=== PATIENT | male | born 1950 | race Caucasian/White ===

== ENCOUNTER 2018-11-05 12:50 | Emergency (ER) | payer MEDICARE, OTHER, SELFPAY ==
[2018-11-05 12:55] VITALS: BP 166/87; PULSE 84; RESP 12; TEMP 36.7; O2SAT 95
--- NOTE | 2018-11-05 12:59 | W.ED.GENAD ---
Discharge Plan Disposition Patient Disposition: HOME Condition: Improving Discharge Details Chief Complaint: Orthopedic Clinical Impression: Bicipital tendinitis of left shoulder Primary Care Provider: Hannah Silvestre ED Provider: Steven Fonseca Home Meds and New Rx's Prescriptions: Continued ibuprofen 600 MG tablet 600 mg PO TID PRN PRNQty: 30 RF: 0 Discharge Instructions Instructions: Tendinitis (ED) Additional Instructions: Minimize overuse of L arm including shoveling. Apply ice to area discomfort is persistent. Followup with Physical Therapy as prescribed. Return for any acute concerns. Stand Alone Forms: Physical Therapy Referral Medical Decision Making 68yom presents from home with complaint of weeks of L shoulder pain. Began after shoveling and now with reproducible pain and pain with resisted external rotation and resisted abduction. Referred for x-ray no underlying fracture or evidence of calcific deposits. Would consider biceps or rotator cuff tendonitis. Cannot ruleout rotator cuff tendonitis. Will refer to PT. He will minimize movements (shoveling) that irritate the area. Return precautions discussed. HPI General Mode of arrival: ambulatory. Date/Time Provider Initiated Documentation: 11/05/18 12:52. Limitations to Documentation: no limitations. Information obtained by: patient. History of Present Illness 68 year old M presents to the emergency department with the chief complaint of R shulder pain x 2 months after shoveling, described as mild, Quality is described as aching, and is localized to the left and upper extremity. Patient reports no radiation. Patient started experiencing this day(s) No relieving factors improve symptom(s), Movement worsens symptoms . Patient notes no other symptoms.; denies chest pain, rash, shortness of breath and syncope. Related Data Home Medications Medication Instructions Recorded Confirmed ibuprofen 600 mg PO TID PRN PRN #30 tab 04/14/13 11/05/18 Previous Rx's Medication Instructions Recorded ibuprofen 600 mg PO TID PRN PRN #30 tab 04/14/13 Allergies Allergy/AdvReac Type Severity Reaction Status Date / Time No Known Allergies Allergy Unverified 11/05/18 12:59 General Stated Complaint: Orthopedic WALLY: 4 Review of Systems Review of Systems 4 systems reviewed and otherwise negative. [facility] Social History Smoking and Tabacco status: Former Tobacco Use Exam Narrative Exam Narrative: GEN: awake, alert, oriented 3. Pleasant, well groomed, interactive. HEAD: Normocephalic, atraumatic ENT: Mucous membranes moist, oropharynx unremarkable, External ear exam unremarkable EYES: PERRL, EOMI NECK: Full ROM, no NIVIA, no menigismus CHEST/RESP: Nontender, clear to auscultation bilateral, no wheeze/rhonchi/rales CARDIOVASCULAR: RRR, no murmur, rub janny. 2+ Rad pulse bilateral ABDOMEN: Soft, nontender, no mass. +Bowel sounds EXT: Full ROM, no edema, no rash. Tender with resisted external rotation and resisted abduction L Neuro: Grossly normal neurologic exam, conversant, interactive. Psych: Speech fluent, thoughts congruent, affect normal Course Vital Signs Temperature 36.7 C 11/05/18 12:55 Pulse 84 11/05/18 12:55 Respiratory Rate 12 11/05/18 12:55 Blood Pressure 166/87 H 11/05/18 12:55 Pulse Oximetry 95 11/05/18 12:55 Temperature 36.7 C 11/05/18 12:55 Temperature Source Temporal Artery Scan 11/05/18 12:55 Pulse 84 11/05/18 12:55 Respiratory Rate 12 11/05/18 12:55 Respiratory Effort Non-Labored 11/05/18 12:57 Blood Pressure 166/87 H 11/05/18 12:55 Blood Pressure Position Sitting 11/05/18 12:55 Pulse Oximetry 95 11/05/18 12:55 Oxygen Delivery Method Room Air 11/05/18 12:55 Oxygen Flow Rate 0 11/05/18 12:55 Pain Level 2 11/05/18 12:55
--- NOTE | 2018-11-05 13:22 | DI.RAD_ITS ---
SYMPTOMS/DIAGNOSIS: LEFT LATERAL PAIN LEFT SHOULDER: Five views. No acute fracture or dislocation is seen. There are mild degenerative changes seen at the acromioclavicular joint. No radiopaque foreign bodies are seen in the soft tissues. IMPRESSION: No acute abnormality.
[2018-11-05 14:09] VITALS: BP 166/87; PULSE 84; RESP 12; TEMP 36.7; O2SAT 95
== END 2018-11-05 13:57 | disposition home or self-care (01) ==
PROVIDERS: Emergency Provider Emergency Medicine; PCP Internal Medicine
DX: M75.22 Bicipital tendinitis, left shoulder (principal); X50.3XXA Overexertion from repetitive movements, initial encounter
CPT/HCPCS: 99283; 73030; 99282

== ENCOUNTER 2021-07-28 15:05 | Emergency (ER) | payer MEDICARE, OTHER, SELFPAY ==
[2021-07-28] VITALS (26 sets, daily range): BP systolic 112–152; BP diastolic 68–96; PULSE 104–118; RESP 19–45; TEMP 36.1–37.1; O2SAT 93–96
--- NOTE | 2021-07-28 15:30 | DI.RAD_ITS ---
Exam(s) XR PORTABLE CHEST AP EXAM: XR PORTABLE CHEST AP CLINICAL HISTORY: fever, cough. TECHNIQUE: 2D digital imaging was performed. COMPARISON: No exams were available for comparison FINDINGS: Cardiomegaly.. The mediastinum is not widened. There is infiltrate in the lower right lung field. Also in the left lung base contiguous with the di aphragm behind the heart shadow. There is relative sparing of the upper lung mendiola. There are no o bvious pleural effusions. No pneumothorax. Chest leads in place IMPRESSION: Cardiomegaly. Bilateral infiltrates. No obvious pleural effusions. DATA REPOSITORY: RADIATION DOSE DELIVERED: All CT scans at this facility use at least one of these dose optimization techniques: automated exposure control; mA and/or kV adjustment per patient size (includes targeted e xams where dose is matched to clinical indication); or iterative reconstruction.
--- NOTE | 2021-07-28 15:41 | ED.GENADUL_ITS ---
Discharge Plan Disposition Patient Disposition: [facility] Condition: Stable Discharge Details Clinical Impression: Hemorrhagic pericardial effusion, CHF (congestive heart failure), Ascites Primary Care Provider: Unknown,Unknown ED Provider: Mihir Lemons [place] Meds and New Rx's Prescriptions: No Action ibuprofen 600 MG tablet 600 mg PO TID PRN PRNQty: 30 RF: 0 Medical Decision Making <Steven Fonseca MD - Last Filed: 07/28/21 19:31> 71-year-old male presents from home. He has had 4 to 5 days of cough, body aches, subjective fever and chills, shortness of breath. Does note that his symptoms seem to be worse while lying flat. Has received his third dose of moderna COVID-19 vaccine approximately 1 week prior to development of symptoms. No known sick contacts. He arrives to the ER afebrile, interactive with elevated pulse rate, elevated respiratory rate at rest but oxygenating normally. Differential diagnosis is broad including breakthrough Covid infection, pneumonia, must consider CHF. Patient IV access established, screening labs including influenza, COVID-19, EKG and chest x-ray. Patient's white blood cell count is 11, hematocrit 48, platelets 261. Sodium 137, potassium 4.5, bicarb 17, BUN 26, creatinine 1.2. Total bili is 2.5, AST 601, ALT 680. Troponin negative, BNP 4172, D-dimer 3419. Influenza and Covid screening negative. Chest x-ray with bibasilar opacities. See formal report. Given evidence of CHF, liver congestion, elevated D-dimer, the patient was referred for CT imaging; this reveals moderate bilateral pleural effusions, moderate pericardial effusion with Hounsfield units of 60, concerning for heme pericardium. Appears to be some equalization of the right to left heart, see formal report. I did perform an informal bedside ultrasound which does not reveal evidence of tamponade on my images. Bedside pulsus paradoxus measurement with 12mmHg change with inspiration/expiration. Certainly his presentation is concerning for pericarditis with pericardial effusion, and evidence of congestive heart failure with liver congestion. Case discussed <Mihir Lemons MD - Last Filed: 07/28/21 21:48> Patient signed out to me pending discussion with [facility]. Patient seen and evaluated by Dr. Fonseca. Please see his initial note for presentation, evaluation, management. I spoke with cardiology at [facility] and discussed the case as well as the findings. Patient felt to be appropriate for medicine admission with cardiology consult. [facility] called back and confirmed that they will accept the patient tonight with Dr. Rai. Patient made aware of pending transfer and further discussion and questions answered to the best of my ability. Patient remained stable here in the department pending transfer by ambulance to [facility]. Lab Data Lab results reviewed: Yes I reviewed the patient's lab results. HPI <Steven Fonseca MD - Last Filed: 07/28/21 19:31> General Mode of arrival: ambulatory . Date/Time Provider Initiated Documentation: 07/28/21 15:06 . Limitations to Documentation: no limitations . Information obtained by: patient . History of Present Illness 71 year old M presents to the emergency department with the chief complaint of Cough, feels short of breath, increased work of breathing, burning lungs., described as moderate, Quality is described as constant, and is localized to the chest. Patient reports no radiation. Patient started experiencing this day(s) No relieving factors improve symptom(s), No exacerbating factors reported . Patient notes cough, fever/chills, loss of appetite, malaise, shortness of breath and weakness. Patient did receive the following treatments prior to arrival, none Related Data Home Medications Medication Instructions Recorded Confirmed ibuprofen 600 mg PO TID PRN PRN #30 tab 04/14/13 11/05/18 Previous Rx's Medication Instructions Recorded ibuprofen 600 mg PO TID PRN PRN #30 tab 04/14/13 Allergies Allergy/AdvReac Type Severity Reaction Status Date / Time No Known Allergies Allergy Unverified 07/28/21 15:25 General Stated Complaint: SOB WALLY: 3 Review of Systems <Steven Fonseca MD - Last Filed: 07/28/21 19:31> Narrative: No known sick contacts. Symptoms began approximately 1 week after third month during a COVID-19 immunization, no vomiting or abdominal pain. Patient states seems to be worse while lying flat and develops more air hunger. See HPI. 8 systems reviewed and otherwise negative PFSH <Steven Fonseca MD - Last Filed: 07/28/21 19:31> Active Problem List (Updated 07/28/21 @ 21:47 by Mihir Lemons MD) Hemorrhagic pericardial effusion (Acute) CHF (congestive heart failure) (Chronic) Ascites (Acute) Social History Smoking/Tobacco Use Status: Former Tobacco Use Smoking risk assessment performed?: Yes Drug use: Never Substance use type: does not use Do you feel safe in your relationship?: Yes Exam <Steven Fonseca MD - Last Filed: 07/28/21 19:31> Narrative Exam Narrative: GEN: awake, alert, oriented 3. Pleasant, well groomed, interactive. HEAD: Normocephalic, atraumatic ENT: Mucous membranes moist, oropharynx unremarkable, External ear exam unremarkable EYES: PERRL, EOMI NECK: Full ROM, no NIVIA, no menigismus CHEST/RESP: Nontender, clear to auscultation bilateral, no wheeze/rhonchi/rales CARDIOVASCULAR: Regular and tachycardic, no murmur, rub janny. 2+ Rad pulse bilateral ABDOMEN: Soft, nontender, no mass. +Bowel sounds EXT: Full ROM, no edema, no rash Neuro: Grossly normal neurologic exam, conversant, interactive. Psych: Speech fluent, thoughts congruent, affect normal Course <Steven Fonseca MD - Last Filed: 07/28/21 19:31> Vital Signs Vital signs: Vital Signs Temperature 36.1 C L 07/28/21 15:18 Pulse 110 H 07/28/21 15:18 Respiratory Rate 38 H 07/28/21 15:18 Blood Pressure 152/96 H 07/28/21 15:18 Pulse Oximetry 96 07/28/21 15:18 Temperature 36.1 C L 07/28/21 15:18 Temperature Source Skin 07/28/21 15:18 Pulse 110 H 07/28/21 15:18 Respiratory Rate 38 H 07/28/21 15:18 Respiratory Effort 07/28/21 15:18 Blood Pressure 152/96 H 07/28/21 15:18 Pulse Oximetry 96 07/28/21 15:18 Oxygen Delivery Method Room Air 07/28/21 15:18 Oxygen Flow Rate 0 07/28/21 15:18 Pain Level 4 07/28/21 15:18 Sign Out <Steven Fonseca MD - Last Filed: 07/28/21 19:31> Sign Out Data: Sign Out Comment: CHF with ascites, pericardial fluid. D/W Cardiology Last updated by Steven Fonseca MD at 07/28/21 20:16
[2021-07-28 15:52] LABS: Source Nasal/Nares
[2021-07-28 16:10] LABS: Abs Immature Grans 0.08 10^3/uL (0.0-0.06); Absolute Basophil Count 0.03 10^3/uL (0.0-0.2); Absolute Eosinophil Count 0.01 10^3/uL (0.0-0.7); Absolute Lymphocyte Count 1.57 10^3/uL (1.2-3.4); Absolute Monocyte Count 1.18 10^3/uL (0.1-0.8); Absolute Neutrophil Count 8.57 10^3/uL (1.2-6.7); Basophils % 0.3; Eosinophils % 0.1; HCT 48.9 % (40.0-50.0); Immature Grans % 0.7; Lymphocytes % 13.7; MCH 30.2 pg (27.0-33.0); MCHC 32.7 % (32.0-36.0); MCV 92.4 fL (80-95); MPV 10.1 fL (8.0-11.0); Monocytes % 10.3; Neutrophils % 74.9; Nucleated RBC 0 %; Platelet Count 261 10^3/uL (130-400); RBC 5.29 10^6/uL (4.36-5.78); RDW 13.4 % (11.8-14.1); RDW-SD 45.4 fL; WBC 11.44 10^3/uL (4.4-10.8)
[2021-07-28] MEDS: Normal Saline 1,000 ML 1000 ML IV (16:21)
--- NOTE | 2021-07-28 16:30 | DI.CT_ITS ---
Exam(s) CT CHEST PE ABD PELVIS W EXAM: CT CHEST PE ABD PELVIS W CLINICAL HISTORY: SOB,Elev DDimer, Elev LFTs. TECHNIQUE: Imaging Protocol: Axial CT angiography was performed with multi-slice acquisition and m ulti-planar and/or 3D reconstructions. CONTRAST MATERIAL: Intravenous: Omnipaque 350 Contrast volume:100 ml Oral: None COMPARISON: No exams were available for comparison FINDINGS: CHEST: PULMONARY ARTERIES: There are no intra-arterial filling defects to suggest the presence of acute pulm onary emboli. LUNGS: There are moderate-sized bilateral pleural effusions and relaxation atelectasis noted. MEDIASTINUM: There is no hilar nor mediastinal adenopathy. Visualized thyroid unremarkable. CARDIAC: There is a prominent pericardial effusion which is approximately 2 cm thick and exhibit dens ity measurements of approximately 62 Hounsfield units. This may indicate blood.Equalization of the v entricles. Possible developing tamponade. There is also reflux of contrast into the intrahepatic IV C. OSSEOUS: No significant osseous lesions.. ABDOMEN: There is moderate amount of ascites. LIVER: There is a cyst in the caudate lobe which measures 2.5 x 1.4 cm. Another cyst is seen in the left hepatic lobe measuring 1.7 x 1.3 cm. GALLBLADDER/BILIARY: No obvious gallbladder pathology. CBD is not dilated. PANCREAS: No evidence of pancreatic mass nor dilatation of the pancreatic duct. SPLEEN: Spleen is not enlarged. There are no intrasplenic lesions. Splenic and portal veins are richardson nt. ADRENALS: There are no significant adrenal masses. KIDNEYS:No cysts evident. No calculi nor hydronephrosis. No solid renal masses. ABDOMINAL AORTA: Abdominal aorta is not enlarged. LYMPH NODES: There is no retroperitoneal or para-aortic adenopathy. ABDOMINAL WALL/GI: There is a left inguinal hernia which contains bowel loops, mostly sigmoid. No ob vious bowel obstruction. PELVIS: LYMPH NODES: There is no intrapelvic nor inguinal adenopathy. GI: No evidence of appendicitis.Sigmoid diverticulosis. No obvious acute diverticulitis. URINARY BLADDER: Uniformly thickened wall. No diverticuli. REPRODUCTIVE: Prostate size upper normal. Seminal vesicles unremarkable. OSSEOUS: No significant osseous lesions. IMPRESSION: 1. No evidence of acute pulmonary emboli nor pulmonary infarction. 2. Moderate sized bilateral pleural effusions noted. Relaxation atelectasis in the lung bases. 3. Large pericardial effusion-probable hemopericardium. Findings suspicious for developing tamponade . 4. Moderate ascites. 5. Large left inguinal hernia which contains significant part of the sigmoid. No obvious bowel obstr uction at this level. 6. sigmoid diverticulosis. No obvious acute diverticulitis. RADIATION DOSE DELIVERED: 1,170.75mGy.cm Total DLP DATA REPOSITORY: All CT scans at this facility are submitted to the National Radiology Data Registry (NRDR) Dose Index Registry (DIR) with the [employer] (ACR). RADIATION OPTIMIZATION: All CT scans at this facility use at least one of these dose optimization te chniques: automated exposure control; mA and/or kV adjustment per patient size (includes targeted exa ms where dose is matched to clinical indication); or iterative reconstruction.
[2021-07-28 16:32] LABS: ALT 680 U/L (16-63); AST 601 U/L (15-37); Albumin 3.6 g/dL (3.4-5.0); Alkaline Phosphatase 129 U/L (46-116); Anion Gap 17.7 mmol/L (3-11); BUN 26 mg/dL (7-18); Bilirubin, Total 2.5 mg/dL (0.2-1.0); CO2 17.3 mmol/L (21.0-32.0); CREATININE 1.2 mg/dL (0.70-1.30); Calcium 8.9 mg/dL (8.5-10.1); Chloride 102 mmol/L (98-107); Estimated GFR 59.35 (mL/min/1.73m2); Glucose 109 mg/dL (74-106); Potassium 4.5 mmol/L (3.5-5.1); Sodium 137 mmol/L (136-145); Total Protein 6.9 g/dL (6.4-8.2)
[2021-07-28 16:34] LABS: COVID-19 PCR Negative (Negative)
[2021-07-28 16:41] LABS: D-Dimer 3419 ng/mlFEU (<500)
--- NOTE | 2021-07-28 17:00 | RT.EKG_ITS ---
APPROVED REPORT Exam: Resting ECG Reason for Exam: sob Patient Location: E HR:110 bpm ECG Measurements Heart Rate 110 AXIS IA 143 P 51 QRSd 82 QRS 78 QT 329 T 229 QTc 446 Conclusion Sinus tachycardia...rate> 99 Nonspecific T abnormalities, lateral leads...T <-0.10mV, I aVL V5 V6
--- NOTE | 2021-07-28 17:05 | DI.VRAD_ITS ---
PROCEDURE INFORMATION: Exam: XR Chest Exam date and time: 07/28/2021 3:40 PM Age: 71 years old Clinical indication: Other: Fever, cough TECHNIQUE: Imaging protocol: XR of the chest. Views: 1 view. COMPARISON: CR Shoulder L 11/05/2018 1:26 PM FINDINGS: Lungs: Bibasilar opacities are seen. Pleural spaces: Unremarkable. No pleural effusion. No pneumothorax. Heart/Mediastinum: Mild cardiac enlargement. Bones/joints: Unremarkable. IMPRESSION: Bibasilar opacities compatible with infiltrates are aspirations. Follow-up PA and lateral recommended to ensure resolution. Dictated and Authenticated by: Ajit Armstrong MD. Ordering:JUDE Harris MD
[2021-07-28 17:09] LABS: Procalcitonin < 0.1 ng/mL
[2021-07-28 17:24] LABS: NT-proBNP 4172 pg/mL (<300); Troponin I < 0.05 ng/mL (<0.06)
[2021-07-28] MEDS: Omnipaque 350 MG/ML 100 ML BTL IJ (18:08)
[2021-07-28] MEDS: Normal Saline Flush 10 ML SYR IVP (18:08)
--- NOTE | 2021-07-28 18:58 | DI.VRAD_ITS ---
PROCEDURE INFORMATION: Exam: CTA Chest With Contrast Exam date and time: 07/28/2021 4:44 PM Age: 71 years old Clinical indication: Other: SOB, elev ddimer, elev lfts TECHNIQUE: Imaging protocol: Computed tomographic angiography of the chest with contrast. 3D rendering (Not supervised by radiologist): MIP and/or 3D reconstructed images were created by the technologist. Contrast material: OMNIPAQUE 350; Contrast volume: 100 ml; Contrast route: INTRAVENOUS (IV); COMPARISON: XR PORTABLE CHEST AP 07/28/2021 4:38 PM FINDINGS: Pulmonary arteries: No evidence of pulmonary embolus to the proximal segmental level in most cases. Aorta: Mild dilatation of the ascending thoracic aorta to about 38 mm. Lungs: Dependent bilateral pulmonary opacities most likely represent relaxation atelectasis, but infection not entirely excluded. Pleural spaces: Moderate bilateral pleural effusions are layering. Heart: A moderate pericardial effusion is seen. Hounsfield units are around 60. This is concerning for hemopericardium. There appears to be some equalization of the right left heart which is worrisome for tamponade. Lymph nodes: Mildly prominent mediastinal lymph nodes. Bones/joints: Unremarkable. No acute fracture. Soft tissues: Unremarkable. IMPRESSION: 1. Findings concerning for moderate hemopericardium. Please correlate clinically for tamponade. 2. Moderate bilateral layering effusions with associated atelectasis. Findings concerning for heart failure. 3. No evidence of pulmonary embolus Case discussed with Dr. Fonseca over the phone at 2:56 p.m. [place] time PROCEDURE INFORMATION: Exam: CT Angiography Abdomen With Contrast Exam date and time: 07/28/2021 4:44 PM Age: 71 years old Clinical indication: Other: SOB, elev ddimer, elev lfts TECHNIQUE: Imaging protocol: Computed tomographic angiography images of the abdomen with intravenous contrast material. 3D rendering (Not supervised by radiologist): MIP and/or 3D reconstructed images were created by the technologist. Contrast material: OMNIPAQUE 350; Contrast volume: 100 ml; Contrast route: INTRAVENOUS (IV); COMPARISON: XR PORTABLE CHEST AP 07/28/2021 4:38 PM FINDINGS: Aorta: No aortic aneurysm. No aortic dissection. Celiac trunk and mesenteric arteries: No occlusion or significant stenosis. Renal arteries: No occlusion or significant stenosis. IVC: The IVC and hepatic veins are distended. Liver: Probable cyst in the hepatic subsegment 3. Subtle heterogeneity is of uncertain significance, but clinical correlation recommended for hepatic parenchymal disease. It could be due to vascular congestion. Gallbladder and bile ducts: Normal. No calcified stones. No ductal dilation. Pancreas: Normal. No ductal dilation. Spleen: Normal. No splenomegaly. Adrenals: Normal. No mass. Kidneys and ureters: Normal. No hydronephrosis. Stomach and bowel: Sigmoid diverticulosis noted. No large or small bowel dilatation. Lymph nodes: Unremarkable. No enlarged lymph nodes. Intraperitoneal space: Diffuse ascites seen. Mild stranding in the mesenteric and retroperitoneal fat diffusely. Bladder: Mild bladder wall thickening appears fairly diffuse, but correlation for cystitis is recommended. Bones/joints: Unremarkable. No acute fracture. No dislocation. Soft tissues: A moderate left inguinal hernia is partially imaged and contains loops of bowel. Other findings: Probable cyst in the caudate lobe. Prominent cisterna chyli. IMPRESSION: 1. Diffuse small volume ascites of uncertain cause 2. Several incidental findings as above. Dictated and Authenticated by: Ajit Armstrong MD. Ordering:JUDE Harris MD
[2021-07-28 19:42] LABS: Troponin I < 0.05 ng/mL (<0.06)
[2021-07-28 19:45] LABS: INR 1.5 (0.9-1.1); PTT Activated 20.2 sec (21.0-27.5); Prothrombin Time 14.5 sec (9.3-11.0)
== END 2021-07-28 22:43 | disposition short-term general hospital (02) ==
PROVIDERS: Emergency Medicine; Emergency Provider Emergency Medicine
DX: I30.9 Acute pericarditis, unspecified (principal); I50.9 Heart failure, unspecified; R18.8 Other ascites; R79.89 Other specified abnormal findings of blood chemistry; R79.1 Abnormal coagulation profile; Z20.822 Contact with and (suspected) exposure to COVID-19; Z03.818 Encounter for observation for suspected exposure to other biological agents ruled out
CPT/HCPCS: 36415; 71275; 74177; 80053; 84145; 87449; 87635; 93005; 96360; 96361; 99285; 71045; 83880; 84484; 85025; 85379; 85610; 85730; 93010; J3490

== ENCOUNTER 2021-08-22 12:51 | Outpatient (CLI) | payer MEDICARE, OTHER, SELFPAY ==
--- NOTE | 2021-08-22 12:46 | DI.RAD_ITS ---
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 Two images were obtained. PA and lateral views were obtained. COMPARISON: CR,XR XR PORTABLE CHEST AP from 07/28/2021 FINDINGS: MEDIASTINUM: Normal. HEART: Normal. PULMONARY VASCULATURE: Normal. LUNGS: Clear. PLEURAL SPACE: No pleural effusion or pneumothorax. BONE:Within normal limits for the patient's age. OTHER FINDINGS:Normal. IMPRESSION: No acute pulmonary findings. No pleural effusions. DATA REPOSITORY: RADIATION DOSE DELIVERED:
== END 2021-08-22 13:11 ==
PROVIDERS: Visit Provider Internal Medicine Hematology & Oncology
DX: C83.30 Diffuse large B-cell lymphoma, unspecified site (principal)
CPT/HCPCS: 36415; 80053; 71046; 83615; 85025

== ENCOUNTER 2021-08-27 03:29 | Outpatient (RCR) | payer MEDICARE, OTHER, SELFPAY ==
[2021-08-22 12:48] LABS: Abs Immature Grans 11.76 10^3/uL (0.0-0.06); HCT 47.4 % (40.0-50.0); HGB 15.6 g/dL (13.5-17.5); MCHC 32.9 % (32.0-36.0); MCV 91.2 fL (80-95); MPV 9.1 fL (8.0-11.0); Nucleated RBC 0 %; RDW 13.8 % (11.8-14.1); RDW-SD 45.8 fL
[2021-08-22 12:56] LABS: WBC 42.07 10^3/uL (4.4-10.8)
[2021-08-22 13:01] LABS: ALT 66 U/L (16-63); AST 39 U/L (15-37); Albumin 2.9 g/dL (3.4-5.0); Alkaline Phosphatase 115 U/L (46-116); BUN 24 mg/dL (7-18); Bilirubin, Total 0.4 mg/dL (0.2-1.0); CREATININE 0.8 mg/dL (0.70-1.30); Calcium 8.4 mg/dL (8.5-10.1); Chloride 102 mmol/L (98-107); Glucose 152 mg/dL (74-106); LDH 452 U/L (85-227); Potassium 4.2 mmol/L (3.5-5.1); Sodium 135 mmol/L (136-145); Total Protein 6.3 g/dL (6.4-8.2)
[2021-08-22 13:05] LABS: Anion Gap 7.1 mmol/L (3-11); CO2 25.9 mmol/L (21.0-32.0)
[2021-08-22 13:11] LABS: Absolute Basophil Count 1.26 10^3/uL (0.0-0.2); Absolute Eosinophil Count 0.42 10^3/uL (0.0-0.7); Absolute Lymphocyte Count 0.84 10^3/uL (1.2-3.4); Absolute Monocyte Count 2.94 10^3/uL (0.1-0.8); Bands % 8; Platelet Count 256 10^3/uL (130-400)
[2021-08-22 13:12] LABS: Diff Comment Manual Differential; Metamyelocytes % 5; RBC Morphology Normal
[2021-08-27 12:56] LABS: Abs Immature Grans 1.68 10^3/uL (0.0-0.06); HCT 46.1 % (40.0-50.0); HGB 14.5 g/dL (13.5-17.5); MCHC 31.5 % (32.0-36.0); MCV 92.2 fL (80-95); MPV 8.9 fL (8.0-11.0); Nucleated RBC 0 %; Platelet Count 253 10^3/uL (130-400); RDW 14.6 % (11.8-14.1); RDW-SD 47.5 fL
[2021-08-27 13:10] LABS: ALT 67 U/L (16-63); AST 32 U/L (15-37); Absolute Basophil Count 0.26 10^3/uL (0.0-0.2); Absolute Lymphocyte Count 1.03 10^3/uL (1.2-3.4); Absolute Monocyte Count 0.51 10^3/uL (0.1-0.8); Absolute Neutrophil Count 23.63 10^3/uL (1.2-6.7); Alkaline Phosphatase 88 U/L (46-116); Anion Gap 8.3 mmol/L (3-11); BUN 25 mg/dL (7-18); Bands % 1; Bilirubin, Total 0.5 mg/dL (0.2-1.0); CO2 26.7 mmol/L (21.0-32.0); CREATININE 0.8 mg/dL (0.70-1.30); Calcium 8.4 mg/dL (8.5-10.1); Chloride 100 mmol/L (98-107); Diff Comment Manual Differential; Glucose 158 mg/dL (74-106); LDH 273 U/L (85-227); Myelocytes % 1; Potassium 4.5 mmol/L (3.5-5.1); RBC Morphology Normal; Sodium 135 mmol/L (136-145); Total Protein 6.3 g/dL (6.4-8.2)
[2021-08-27 13:11] LABS: WBC 25.69 10^3/uL (4.4-10.8)
== END 2021-08-31 23:59 | disposition home or self-care (01) ==
LOC: INF 03:29
PROVIDERS: Visit Provider Internal Medicine Hematology & Oncology
DX: C83.30 Diffuse large B-cell lymphoma, unspecified site (principal); Z79.899 Other long term (current) drug therapy
CPT/HCPCS: 36415; 80053; 83615; 85025

== ENCOUNTER 2021-09-05 17:37 | Outpatient (CLI) | payer MEDICARE, OTHER, SELFPAY ==
--- NOTE | 2021-09-05 12:43 | DI.RAD_ITS ---
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 The heart is not enlarged. Lungs appear grossly clear. No pleural effusion seen. IMPRESSION: No evidence of acute change. RADIATION DOSE DELIVERED: Total DLP
== END 2021-09-05 17:57 ==
PROVIDERS: Visit Provider Nurse Practitioner Family
DX: C83.30 Diffuse large B-cell lymphoma, unspecified site (principal)
CPT/HCPCS: 36415; 80053; 71046; 83615; 85025

== ENCOUNTER 2021-09-10 15:44 | Inpatient (IN) | payer MEDICARE, OTHER, SELFPAY ==
[2021-09-10 16:00] VITALS: BP 125/79; PULSE 102; RESP 18; O2SAT 93
[2021-09-10] MEDS: Normal Saline 250 ML IV (16:28)
[2021-09-10 16:37] LABS: Source Nasal/Nares
[2021-09-10 16:41] LABS: Absolute Eosinophil Count 0.01 10^3/uL (0.0-0.7); Eosinophils % 0.5; HCT 36.9 % (40.0-50.0); HGB 12.4 g/dL (13.5-17.5); Lactate 2.7 mmol/L (0.6-1.4); MCH 28.7 pg (27.0-33.0); MCHC 33.6 % (32.0-36.0); MCV 85.4 fL (80-95); MPV 9.8 fL (8.0-11.0); Nucleated RBC 0 %; Platelet Count 153 10^3/uL (130-400); RBC 4.32 10^6/uL (4.36-5.78); RDW 15.8 % (11.8-14.1); RDW-SD 47.8 fL
--- NOTE | 2021-09-10 16:43 | ED.GENADUL_ITS ---
Discharge Plan Disposition Patient Disposition: [facility] INPATIENT Condition: Stable Discharge Details Clinical Impression: Neutropenia with fever, Bronchopneumonia Primary Care Provider: Hannah Silvestre ED Provider: Jatin Warren Home Meds and New Rx's Prescriptions: No Action ibuprofen 600 MG tablet 600 mg PO TID PRN PRNQty: 30 RF: 0 prednisone 10 mg Tablets,Dose Pack 20 mg PO RF: 0 Metamucil 3.4 gram/5.4 gram Powder 1 tbsp PO DAILY RF: 0 Medical Decision Making Patient referred to emergency department from cancer center due to patient reporting a.m. fever (102) for the past 3 days. Patient states that in the morning she has maybe felt subjective malaise but denies any other symptoms. Patient does state that he has had a chronic cough since diagnosis that is actually improving. Patient denies any GI symptoms, URI symptoms, skin complaints or urinary complaints. Physical exam is unremarkable for any acute findings and patient overall appears well. Of note patient has had last chemo treatment was 11 days ago. Review of labs show patient has neutropenia with [id number], elevated lactate 2.7, patient with mild hyponatremia, elevated anion gap and BUN, and elevated glucose. Patient is COVID-negative. Given these findings patient is started on Zosyn and given sounds like the tablets for neutropenic fever and MRSA mL bolus bolus pending urinalysis and blood cultures. Patients MASCC risk index for neutropenia score is 20. While mild treatment she may check MRSA swab patient currently does not like it just History of seizures in the hospital pt is agreeable for admission and hospitalist was consulted. HPI General Mode of arrival: ambulatory . Date/Time Provider Initiated Documentation: 09/10/21 16:09 . Limitations to Documentation: no limitations . Information obtained by: patient . History of Present Illness 71 year old M presents to the emergency department with the chief complaint of fever, described as moderate, Quality is described as other (denies pain), Patient started experiencing this day(s) (3) and it has been intermittent. No relieving factors improve symptom(s), No exacerbating factors reported . Patient notes malaise. Patient did receive the following treatments prior to arrival, none Related Data Home Medications Medication Instructions Recorded Confirmed ibuprofen 600 mg PO TID PRN PRN #30 tab 04/14/13 09/10/21 prednisone 20 mg PO 09/10/21 psyllium husk [Metamucil] 1 tbsp PO DAILY 09/10/21 09/10/21 Previous Rx's Medication Instructions Recorded ibuprofen 600 mg PO TID PRN PRN #30 tab 04/14/13 Allergies Allergy/AdvReac Type Severity Reaction Status Date / Time No Known Allergies Allergy Unverified 09/10/21 16:10 General Stated Complaint: Fever WALLY: 2 Review of Systems Constitutional Constitutional: Reports as per HPI, Denies body ache(s), Denies chills, Reports fever(s), Denies headache(s) and Reports malaise ENT Ears, Nose, Mouth, and Throat: Denies headache(s), Denies neck pain and Denies throat swelling Cardiovascular Cardiovascular: Denies chest pain and Denies dyspnea Respiratory Respiratory: Reports cough (unchanged/ improving) and Denies dyspnea Gastrointestinal Gastrointestinal: Denies abdominal pain, Denies diarrhea, Denies nausea and Denies vomiting Genitourinary Genitourinary: Denies difficulty urinating, Denies urinary frequency and Denies urinary hesitancy Musculoskeletal Musculoskeletal: Denies neck pain Integumentary/Breasts Skin/Breast: Denies rash Neurologic Neurologic: Denies headache(s) Allergic/Immunologic Allergic/Immunologic: Denies throat swelling PFSH All Active Problems (Updated 09/10/21 @ 19:33 by Jeb Whyte MD) Fever (Acute) Neutropenia with fever (Acute) Bronchopneumonia (Acute) Lymphoma (Acute) Hemorrhagic pericardial effusion (Acute) CHF (congestive heart failure) (Chronic) Ascites (Acute) Social History Smoking/Tobacco Use Status: Former Tobacco Use Smoking risk assessment performed?: Yes Drug use: Never Substance use type: does not use Do you feel safe in your relationship?: Yes Exam Const General: cooperative, comfortable and no acute distress Orientation: alert and awake HENMT Head: normal to inspection, normocephalic and atraumatic Ears: hearing grossly normal bilaterally Neck Neck: normal visual inspection, full ROM, no meningeal signs, trachea midline and supple Resp Effort & Inspection: normal respiratory effort and able to speak in complete sentences Auscultation: clear to auscultation bilaterally Cardio Rate: regular rate Rhythm: regular rhythm Heart Sounds: S1 normal, S2 normal, normal S1 and S2, no click, no gallops, no murmurs and no rubs Pulses: radial pulses present Skin General skin exam: no rashes or lesions noted and dry skin (warm) Neuro General: patient alert, patient awake, patient oriented x3, gait normal and moves all extremities Cognition: normal cognition Speech: speech normal Extrem General: no pedal edema Course Vital Signs Vital signs: Vital Signs Pulse 102 H 09/10/21 16:00 Respiratory Rate 18 09/10/21 16:00 Blood Pressure 125/79 09/10/21 16:00 Pulse Oximetry 93 09/10/21 16:00 Pulse 102 H 09/10/21 16:00 Respiratory Rate 18 09/10/21 16:00 Respiratory Effort 09/10/21 16:09 Blood Pressure 125/79 09/10/21 16:00 Blood Pressure Position Sitting 09/10/21 16:00 Pulse Oximetry 93 09/10/21 16:00 Oxygen Delivery Method Room Air 09/10/21 16:00 Oxygen Flow Rate 0 09/10/21 16:00 Comment 09/10/21 16:00 Lab/Test Results Lab/Test Results: 09/10/21 16:22 Blood Blood Culture - Pending 09/10/21 16:09 Blood Blood Culture - Pending Laboratory Tests Range/Units 09/10/21 09/10/21 16:22 16:28 VBG Lactate (0.6-1.4) mmol/L 2.7 H* COVID-19 Source Nasal/Nares
[2021-09-10 16:44] LABS: WBC 1.95 10^3/uL (4.4-10.8)
[2021-09-10 16:55] LABS: Diff Comment Manual Differential
[2021-09-10 16:56] LABS: Absolute Basophil Count 0.02 10^3/uL (0.0-0.2); Absolute Lymphocyte Count 0.45 10^3/uL (1.2-3.4); Absolute Monocyte Count 0.39 10^3/uL (0.1-0.8); Absolute Neutrophil Count 1.09 10^3/uL (1.2-6.7); Anisocytosis 1+; Bands % 2; Macrocytosis 2+; Microcytosis 1+
--- NOTE | 2021-09-10 17:15 | DI.RAD_ITS ---
Exam(s) XR PORTABLE CHEST AP EXAM: XR PORTABLE CHEST AP CLINICAL HISTORY: cough-pui TECHNIQUE: COMPARISON: CR XR CHEST 2V PA LATERAL from 09/05/2021 FINDINGS: Note is again made of a right Port-A-Cath in position. The heart is not enlarged. In comparison wit h prior radiographs of September 05, there are new patchy opacities in the right lung highly suggestiv e of pneumonia. Minimal increased radiodensities in left perihilar region may also be present. No g ross pleural effusion on this frontal film. IMPRESSION: The appearance suggests interval development of pneumonia, predominantly right-sided. RADIATION DOSE DELIVERED: Total DLP
[2021-09-10 17:17] LABS: COVID-19 PCR Negative (Negative)
[2021-09-10 17:24] LABS: ALT 35 U/L (16-63); AST 31 U/L (15-37); Albumin 2.6 g/dL (3.4-5.0); Alkaline Phosphatase 65 U/L (46-116); Anion Gap 11.9 mmol/L (3-11); BUN 20 mg/dL (7-18); Bilirubin, Total 0.8 mg/dL (0.2-1.0); CO2 22.1 mmol/L (21.0-32.0); CREATININE 0.8 mg/dL (0.70-1.30); Calcium 8.5 mg/dL (8.5-10.1); Chloride 100 mmol/L (98-107); Glucose 179 mg/dL (74-106); Potassium 3.5 mmol/L (3.5-5.1); Sodium 134 mmol/L (136-145); Total Protein 5.9 g/dL (6.4-8.2)
--- NOTE | 2021-09-10 17:28 | DI.VRAD_ITS ---
PROCEDURE INFORMATION: Exam: XR Chest Exam date and time: 09/10/2021 4:18 PM Age: 71 years old Clinical indication: Cough; Patient HX: Ccugh, pui TECHNIQUE: Imaging protocol: XR of the chest. Views: 1 view. COMPARISON: CR XR CHEST 2V PA LATERAL 09/05/2021 12:42 PM FINDINGS: Tubes, catheters and devices: Again noted is a right chest wall Port-A-Cath with its tip projecting at the superior vena cava. Lungs: There is new mild patchy airspace opacity within the right mid and lower lung. There is no pulmonary vascular congestion. Pleural spaces: There are no pleural effusions present. Heart/Mediastinum: Heart size is likely near the upper limits of normal. Bones/joints: Unremarkable. IMPRESSION: New mild patchy airspace opacity in the right mid and lower lung suggesting mild bronchopneumonia. Recommend clinical correlation. Dictated and Authenticated by: Kris Najera MD. Ordering:GARRET Steiner MD
[2021-09-10] MEDS: PIPERACILLIN/TAZO 4.5 GM in Normal Saline 100 ML IVPB (17:59)
--- NOTE | 2021-09-10 19:25 | W.PM.HP.N ---
Date of service: 09/10/21 Time of Service: 19:25 Assessment and Plan Assessment and plan (1) Fever: Status: Acute Assessment and plan: Fever. He is technically just above limit for formal neutropenia, but will treat as such. However, in this regard, and also in light of CXR findings -- could this be the lymphona and not infectious? -- will also treat for potential HCAP. Zosyn will be adequate regimen for both scenarios and will continue as is, but have requested MRSA screen. Fever: Zosyn, MRSA screen, trend white count Reviewed ADs, requests Full Code. History of Present Illness History of Present Illness Chief Complaint: fever Narrative: 71 male with h/o recently diagnosed non-Hodgkins lymphoma 07/22, on cycle 2 of R-COPE chemo, last dose 11 day [employer]. here with 3 days of fever (to 102). Does endorse a degree of cough, thjough this has been present for several months and he states it is getting better. No CP, SOB. Otherwise feels his usual self. In ER findings of note for absence of fever, white count 1.95 with ANC 1086; CXR with patchy air space disease right mid and lower lung mendiola. urine is pending. COVID negative. Cultures obtained and patient given dose of Zosyn. I was asked to evaluate for admission. Other than a dry mouth (and cough mentioned above) patient states he is feeling entirely well. Review of Systems All systems reviewed & are unremarkable except as noted in HPI and below PFSH All Active Problems (Updated 09/10/21 @ 19:33 by Jeb Whyte MD) Fever (Acute) Neutropenia with fever (Acute) Bronchopneumonia (Acute) Lymphoma (Acute) Hemorrhagic pericardial effusion (Acute) CHF (congestive heart failure) (Chronic) Ascites (Acute) Social History Smoking/Tobacco Use Status: Former Tobacco Use Smoking risk assessment performed?: Yes Drug use: Never Substance use type: does not use Do you feel safe in your relationship?: Yes Meds Allergies and Home Medications Allergies Allergy/AdvReac Type Severity Reaction Status Date / Time No Known Allergies Allergy Unverified 09/10/21 16:10 Home Medications Medication Instructions Recorded Confirmed Type ibuprofen 600 mg PO TID PRN PRN #30 tab 04/14/13 11/05/18 Rx prednisone 20 mg PO 09/10/21 History psyllium husk [Metamucil] 1 tbsp PO DAILY 09/10/21 09/10/21 History Exam Narrative Exam Narrative: 125/79, 102, 36.8, 18, 93-96% RA. HEENT unremarkable; neck supple; lungs clear (though obscured by ambient sound); heart RRR; abdomen soft and NT; extremities w/o edema; neuro Ox3, lucid, moves all 4s; skin no rashes identified, port site w/o redness or drainage Results Labs Result diagrams: 09/10/21 16:22 09/10/21 16:22 Labs: Laboratory Results - last 24 hr 09/10/21 09/10/21 09/10/21 16:22 16: 16:22 WBC 1.95 L* RBC 4.32 L Hgb 12.4 L Hct 36.9 L MCV 85.4 MCH 28.7 MCHC 33.6 RDW 15.8 H Plt Count 153 MPV 9.8 Immature Gran % 0.0 Neutrophils % 54.0 Band Neutrophils % 2 Lymphocytes % 23.0 Monocytes % 20.0 Eosinophils % 0.5 Basophils % 1.0 Nucleated RBC % 0 Absolute Neutrophils 1.09 L Absolute Lymphocytes 0.45 L Absolute Monocytes 0.39 Absolute Eosinophils 0.01 Absolute Basophils 0.02 RBC Morphology See Below Anisocytosis 1+ Microcytosis 1+ Macrocytosis 2+ VBG Lactate 2.7 H* Sodium 134 L Potassium 3.5 Chloride 100 Carbon Dioxide 22.1 Anion Gap 11.9 H BUN 20 H Creatinine 0.8 Estimated GFR/1.73 m2 >= 60.00 Glucose 179 H Calcium 8.5 Total Bilirubin 0.8 AST 31 ALT 35 Alkaline Phosphatase 65 Total Protein 5.9 L Albumin 2.6 L COVID-19 Source SARS-CoV-2 (PCR) 09/10/21 16:28 WBC RBC Hgb Hct MCV MCH MCHC RDW Plt Count MPV Immature Gran % Neutrophils % Band Neutrophils % Lymphocytes % Monocytes % Eosinophils % Basophils % Nucleated RBC % Absolute Neutrophils Absolute Lymphocytes Absolute Monocytes Absolute Eosinophils Absolute Basophils RBC Morphology Anisocytosis Microcytosis Macrocytosis VBG Lactate Sodium Potassium Chloride Carbon Dioxide Anion Gap BUN Creatinine Estimated GFR/1.73 m2 Glucose Calcium Total Bilirubin AST ALT Alkaline Phosphatase Total Protein Albumin COVID-19 Source Nasal/Nares SARS-CoV-2 (PCR) Negative Last Vital Signs Pulse 102 H 09/10/21 16:00 Resp 18 09/10/21 16:00 BP 125/79 09/10/21 16:00 Pulse Ox 93 09/10/21 16:00
[2021-09-10 19:50] VITALS: BP 122/77; PULSE 90; RESP 16; TEMP 36.6; O2SAT 95
[2021-09-10 20:10] LABS: Bilirubin Negative (Negative); Blood Negative (Negative); Clarity Clear (Clear); Glucose 100 mg/dL (Negative); Ketones Negative (Negative); Leukocyte Esterase Negative (Negative); Nitrite Positive (Negative); Specific Gravity >= 1.030 (1.005-1.025)
[2021-09-10 20:19] LABS: Bacteria Moderate HPF (Negative); Epithelial Cells Few HPF (Negative); RBC 0-2 HPF (0-2)
[2021-09-10 20:20] LABS: C & S Indicated? Yes; Casts Negative LPF (Negative); Crystals Few Calcium Oxalate HPF (Negative); Mucus Moderate (Negative)
[2021-09-10 21:13] VITALS: BP 140/74; PULSE 102; RESP 18; TEMP 36.5; O2SAT 90
[2021-09-10 21:24] VITALS: BP 140/74; PULSE 102; RESP 18; TEMP 36.5; O2SAT 88
[2021-09-10 21:44] VITALS: O2SAT 92
[2021-09-10] MEDS: Acyclovir 400 MG TAB PO (22:14)
[2021-09-10] MEDS: Atorvastatin 10 MG TAB PO (22:14)
[2021-09-10 23:28] VITALS: BP 140/74; PULSE 98; RESP 18; TEMP 36.7; O2SAT 92
[2021-09-11] VITALS (8 sets, daily range): BP systolic 103–135; BP diastolic 56–77; PULSE 84–116; RESP 18–33; TEMP 36.8–38.6; O2SAT 73–96
--- NOTE | 2021-09-11 | DI.CT_ITS ---
Exam(s) CT CHEST PE CTA EXAM: CT CHEST PE CTA CLINICAL HISTORY: concern for PE, COVID-19. TECHNIQUE: Imaging Protocol: Axial CT angiography was performed with multi-slice acquisition and mu lti-planar and/or 3D reconstructions. CONTRAST MATERIAL: Intravenous: Omnipaque 350 Contrast volume:structured data in ml COMPARISON: CT CT CHEST PE ABD PELVIS W from 07/28/2021 FINDINGS: CT angiography of the chest was performed with intravenous infusion of 70 cc of Omnipaque 350. There are extensive diffuse ground-glass opacities which are predominantly peripheral and predominant ly involving the upper lobes. No gross focal consolidation at this time period. No pleural effusion . Tracheobronchial tree appears intact. No evidence of pulmonary embolic disease. Thoracic aorta is of normal diameter, no thoracic aortic an eurysm or dissection, major branch vessels appear intact. IJ catheter noted in place the tip of whic h lies in the right atrium. No mediastinal or hilar adenopathy. Images obtained through the upper abdomen show unremarkable appearance of the visualized portions of the liver, spleen, pancreas, adrenals, and kidneys. IMPRESSION: Extensive ground-glass opacities consistent with COVID pneumonia.. No evidence of pulmonary embolic disease. RADIATION DOSE DELIVERED: 369.72mGy.cm Total DLP 369.72mGy.cm Total DLP 9.49mGy CTDIvol DATA REPOSITORY: All CT scans at this facility are submitted to the National Radiology Data Registry (NRDR) Dose Index Registry (DIR) with the [employer] (ACR). RADIATION OPTIMIZATION: All CT scans at this facility use at least one of these dose optimization te chniques: automated exposure control; mA and/or kV adjustment per patient size (includes targeted exa ms where dose is matched to clinical indication); or iterative reconstruction.
[2021-09-11] MEDS: Normal Saline Flush 10 ML SYR IVP ×2 (02:13→20:13)
[2021-09-11] MEDS: PIPERACILLIN/TAZO 4.5 GM in Normal Saline 100 ML IVPB ×3 (02:14→17:40)
[2021-09-11] MEDS: Acetaminophen 325 MG TAB 650 MG PO (02:31)
[2021-09-11 07:16] LABS: Lactate 1.2 mmol/L (0.6-1.4)
[2021-09-11 07:17] LABS: Abs Immature Grans 0.05 10^3/uL (0.0-0.06); HCT 34.3 % (40.0-50.0); HGB 11.2 g/dL (13.5-17.5); MCH 28.9 pg (27.0-33.0); MCHC 32.7 % (32.0-36.0); MCV 88.6 fL (80-95); MPV 9.5 fL (8.0-11.0); Nucleated RBC 0 %; Platelet Count 146 10^3/uL (130-400); RBC 3.87 10^6/uL (4.36-5.78); RDW 15.9 % (11.8-14.1); RDW-SD 50.1 fL
[2021-09-11 07:21] LABS: WBC 1.68 10^3/uL (4.4-10.8)
[2021-09-11 08:31] LABS: Absolute Eosinophil Count 0.03 10^3/uL (0.0-0.7); Absolute Lymphocyte Count 0.67 10^3/uL (1.2-3.4); Absolute Monocyte Count 0.15 10^3/uL (0.1-0.8); Absolute Neutrophil Count 0.82 10^3/uL (1.2-6.7); Atypical Lymphocytes % 26; Bands % 1; Diff Comment Manual Differential
[2021-09-11 08:32] LABS: Polychromasia Present
[2021-09-11] MEDS: predniSONE 20 MG TAB PO (08:59)
[2021-09-11] MEDS: Acyclovir 400 MG TAB PO ×2 (08:59→20:13)
[2021-09-11] MEDS: methylPREDNISolone SUCC 125 MG VIAL IVP (09:00)
[2021-09-11] MEDS: Aspirin 81 MG CHEW PO (09:01)
[2021-09-11 09:35] LABS: Source Nasal/Nares
[2021-09-11 09:50] LABS: Abs Immature Grans 0.05 10^3/uL (0.0-0.06); Absolute Eosinophil Count 0.11 10^3/uL (0.0-0.7); HGB 12.5 g/dL (13.5-17.5); MCH 28.9 pg (27.0-33.0); MCHC 32.9 % (32.0-36.0); MCV 87.8 fL (80-95); MPV 9.5 fL (8.0-11.0); Nucleated RBC 0 %; RBC 4.33 10^6/uL (4.36-5.78); WBC 2.75 10^3/uL (4.4-10.8)
[2021-09-11 10:13] LABS: Prothrombin Time 10.4 sec (9.3-11.0)
[2021-09-11 10:14] LABS: Absolute Neutrophil Count 0.63 10^3/uL (1.2-6.7); Platelet Count 210 10^3/uL (130-400)
[2021-09-11 10:15] LABS: Absolute Basophil Count 0.06 10^3/uL (0.0-0.2); Absolute Lymphocyte Count 1.62 10^3/uL (1.2-3.4); Absolute Monocyte Count 0.33 10^3/uL (0.1-0.8); Atypical Lymphocytes % 17; Diff Comment Manual Differential; Polychromasia Present
[2021-09-11 10:16] LABS: COVID-19 PCR Negative (Negative)
--- NOTE | 2021-09-11 10:27 | PDOC.CMIN ---
- If Service Date Differs Date of service: 09/11/21 Time of Service: 10:27 Care Management Initial Assess REASON FOR HOSPITALIZATION:: Neutropenia with fever, Bronchopneumonia PAST MEDICAL HISTORY/PAST SURGICAL HISTORY:: Fever (Acute). Neutropenia with fever (Acute). Bronchopneumonia (Acute). Lymphoma (Acute). Hemorrhagic pericardial effusion (Acute). CHF (congestive heart failure) (Chronic). Ascites (Acute) PREVIOUS FUNCTIONAL STATUS/SOCIAL/FAMILY SUPPORTS:: Resides in [place], friend Celeste resides in [place]. Previously independent with ADLs CURRENT FUNCTIONAL STATUS:: Semaj is up independently in his room. He is on COVID precautions at this time. Has patient been provided with info about the portal/API?: Yes Did the patient sign up for the portal?: Yes CODE STATUS:: Full Code INSURANCE COVERAGE / FINANCIAL ISSUES:: Medicare. [email or web address] CURRENT HOME/COMMUNITY SERVICES/EQUIPMENT:: None, currently. PRIMARY CARE PHYSICIAN:: Hannah Silvestre POTENTIAL DISCHARGE NEEDS:: Follow up appointments. PATIENT/FAMILY EDUCATION NEEDS:: Review discharge instructions, discuss Ask Me Three. ANTICIPATED BARRIERS TO DISCHARGE:: None identified at this time. TRANSPORTATION:: Via private vehicle with a friend. PLAN:: Semaj will return home when ready per MD. He will follow up with his PCP and plan of care as prescribed. He will transport via private vehicle with a friend.
[2021-09-11 10:28] LABS: Procalcitonin 0.1 ng/mL
[2021-09-11 10:35] LABS: BUN 14 mg/dL (7-18); CREATININE 0.9 mg/dL (0.70-1.30); Calcium 8.1 mg/dL (8.5-10.1); Chloride 99 mmol/L (98-107); Ferritin 882 ng/mL (26-388); Glucose 194 mg/dL (74-106); Magnesium 1.7 mg/dL (1.8-2.4); Potassium 3.3 mmol/L (3.5-5.1); Sodium 135 mmol/L (136-145)
[2021-09-11 10:38] LABS: D-Dimer 2339 ng/mlFEU (<500)
--- NOTE | 2021-09-11 10:44 | PHA.REVIEW ---
Pharmacy Admission Review - Admission Clinical Review (Last Reviewed 09/10/21 @ 19:30 by Jeb Whyte MD) Fever (Acute) Neutropenia with fever (Acute) Bronchopneumonia (Acute) No Known Allergies Allergy (Unverified 09/10/21 16:10) Resuscitation Status Full Code Height 6 ft 2 in Weight 78.018 kg - Renal Dosing Renal Dosing: BUN 14 mg/dL (7-18) D 09/11/21 09:40 Creatinine 0.9 mg/dL (0.70-1.30) 09/11/21 09:40 Medications needing adjustments: Reviewed (Crcl ~80.67 mL/min current meds okay) - Anticoagulation Anticoagulation: Hgb 12.5 g/dL (13.5-17.5) L 09/11/21 09:40 Hct 38.0 % (40.0-50.0) L 09/11/21 09:40 Plt Count 210 10^3/uL (130-400) 09/11/21 09:40 INR 1.0 (0.9-1.1) 09/11/21 09:40 Creatinine 0.9 mg/dL (0.70-1.30) 09/11/21 09:40 DVT Prophylaxis: Intervened (Anticoagulation was not mentioned in the H&P, nor are there any orders for TEDS or SCDS. Will check with provider on need.) Therapeutic Anticoagulation: N/A - Opiate Usage Evaluate Pain Scale/Pains Meds: N/A - Relevant Labs Sodium 135 mmol/L (136-145) L 09/11/21 09:40 Potassium 3.3 mmol/L (3.5-5.1) L 09/11/21 09:40 Chloride 99 mmol/L (98-107) 09/11/21 09:40 Magnesium 1.7 mg/dL (1.8-2.4) L 09/11/21 09:40 Electrolytes, C-Reactive P, ESR: Intervened (Mag and K+ slightly low, will ask provider about possible replacement.) - DM Control DM Control: Glucose 194 mg/dL (74-106) H 09/11/21 09:40 Insulin Dosing: N/A (BG elevated but, may not have been a fasting value. No DM noted in medical history, previous A1c on file was from 2010.) - Heart Failure/NE EF%, FENG's, B-Blockers, Diuretics: N/A - BP Control BP Control: Blood Pressure 135/77 Blood Pressure 103/62 Blood Pressure 104/56 Blood Pressure 117/67 Blood Pressure 117/67 Blood Pressure 140/74 If elevated: Reviewed (BP has been within normal limits most of admission so far with one slightly low level early this morning.) - Qtc Review If Elevated: N/A - IV to PO Switch IV Medications: Reviewed - Home Meds Home Med List reviewed: Reviewed (current chemo meds not listed on home med list (pt received second round of chemo recently per H&P)) Relevent Home Meds Not ordered & why?: ibuprofen (PRN), psyillium - Current meds Current Medication Order Review: Reviewed - Comments Comments/Follow Ups: Watch VS, BG, SCr, mag, K+, labs, for culture results and for med changes (possible dvt/pe prophylaxis, possible mag/K+ replacement). Antibiotic Activity - Pharmacy Antibiotic Review Pharmacy Antibiotic Activity: Reviewed, no change (zosyn ordered (day 2 starts this evening). MRSA screen, BC and UC pending.)
[2021-09-11 10:55] LABS: C-Reactive Protein 7.65 mg/dL (0.0-0.3); NT-proBNP 347 pg/mL (<300)
[2021-09-11 11:00] LABS: PHOSPHORUS 3.1 mg/dL (2.6-4.7)
[2021-09-11] MEDS: Potassium Chloride 20 MEQ TABCR 40 MEQ PO (12:53)
[2021-09-11] MEDS: Enoxaparin 40 MG/0.4 ML SYR SC (12:54)
[2021-09-11] MEDS: MAGNESIUM SULFATE 2 GM/50 ML BAG IVPB (13:39)
[2021-09-11] MEDS: CEFEPIME 2 GM in Normal Saline 100 ML IVPB (18:14)
--- NOTE | 2021-09-11 18:26 | W.PM.PROGNOT ---
Date of Service Date of service: 09/11/21 Time of Service: 18:15 Assessment and Plan Assessment and plan (1) Acute respiratory failure with hypoxia: Status: Acute Assessment and plan: Given findings of ground glass opacities on CTA chest and 2 negative COVID PCRs, pulmonology was consulted. Patient is planned for a bronchoscopy tomorrow for a suspicion of an opportunistic infection. Abx upgraded to cefepime. 'Wean O2 as tolerated. Add IS/acapella (2) Ground glass opacity present on imaging of lung: Status: Acute Assessment and plan: As above (3) Neutropenic fever: Status: Acute Assessment and plan: In setting of chemotherapy/NHL. As above (4) NHL (non-Hodgkin's lymphoma): Status: Chronic Assessment and plan: On chemotherapy. Will need outpatient follow up. (5) DVT prophylaxis: Status: Acute Assessment and plan: Enoxaparin is on hold in anticipation of the bronchoscopy tomorrow. (6) Discharge planning issues: Status: Acute Assessment and plan: Full code Continues to require hospitalization. Keep on COVID precautions until evaluation by pulmonology. Subjective Subjective Interval history since last seen: Mr Tong states that he is not short of breath right now. He states his cough is productive of clear sputum. No other complaints at this time, including no CP/SOB at rest/nausea/dizziness. He is now on 4L, down from 5L this am. Exam Narrative Exam Narrative: General: male who looks younger than his stated age, seated in a chair, A&Ox3, no dyspnea/tachypnea/cyanosis on 4L of O2 by NC HEENT: EOMI, MMM Heart: RRR, no m/r/g Lungs: Diminished breath sounds at B bases Abdomen: soft, nontender, nondistended Extremities: no edema BLE's Objective Last Vital Signs Temp 37.6 C H 09/11/21 08:17 Pulse 96 H 09/11/21 08:17 Resp 18 09/11/21 08:17 BP 135/77 09/11/21 08:17 Pulse Ox 94 09/11/21 08:53 Laboratory Results - last 24 hr 09/10/21 09/11/21 09/11/21 19:55 07:05 07:05 WBC 1.68 L* RBC 3.87 L Hgb 11.2 L Hct 34.3 L MCV 88.6 D MCH 28.9 MCHC 32.7 RDW 15.9 H Plt Count 146 MPV 9.5 Immature Gran % 0.0 Neutrophils % 48.0 Band Neutrophils % 1 Lymphocytes % 14.0 Atypical Lymphs % 26 Monocytes % 9.0 Eosinophils % 2.0 Basophils % 0.0 Nucleated RBC % 0 Absolute Neutrophils 0.82 L Absolute Lymphocytes 0.67 L Absolute Monocytes 0.15 Absolute Eosinophils 0.03 Absolute Basophils 0.00 RBC Morphology See Below Polychromasia Present PT INR D-Dimer VBG Lactate 1.2 Sodium Potassium Chloride Carbon Dioxide Anion Gap BUN Creatinine Estimated GFR/1.73 m2 Glucose Calcium Phosphorus Magnesium Ferritin C-Reactive Protein NT-Pro-B Natriuret Pep Procalcitonin Urine Color Yellow Urine Clarity Clear Urine pH 6.0 Ur Specific [place] >= 1.030 H Urine Protein 30 H Urine Ketones Negative Urine Blood Negative Urine Nitrite Positive H Urine Bilirubin Negative Urine Urobilinogen 1.0 H Ur Leukocyte Esterase Negative Urine RBC 0-2 Urine WBC 3-5 Ur Epithelial Cells Few Urine Crystals Few Calcium Oxalate Urine Bacteria Moderate Urine Casts Negative Urine Mucus Moderate Ur Culture Indicated? Yes Urine Glucose 100 COVID-19 Source SARS-CoV-2 (PCR) 09/11/21 09/11/21 09/11/21 08:58 09:40 09:40 WBC RBC Hgb Hct MCV MCH MCHC RDW Plt Count MPV Immature Gran % Neutrophils % Band Neutrophils % Lymphocytes % Atypical Lymphs % Monocytes % Eosinophils % Basophils % Nucleated RBC % Absolute Neutrophils Absolute Lymphocytes Absolute Monocytes Absolute Eosinophils Absolute Basophils RBC Morphology Polychromasia PT INR D-Dimer VBG Lactate Sodium 135 L Potassium 3.3 L Chloride 99 Carbon Dioxide 25.0 Anion Gap 11.0 BUN 14 D Creatinine 0.9 Estimated GFR/1.73 m2 >= 60.00 Glucose 194 H Calcium 8.1 L Phosphorus 3.1 Cancelled Magnesium 1.7 L Ferritin 882 H C-Reactive Protein 7.65 H NT-Pro-B Natriuret Pep 347 H Procalcitonin Urine Color Urine Clarity Urine pH Ur Specific [place] Urine Protein Urine Ketones Urine Blood Urine Nitrite Urine Bilirubin Urine Urobilinogen Ur Leukocyte Esterase Urine RBC Urine WBC Ur Epithelial Cells Urine Crystals Urine Bacteria Urine Casts Urine Mucus Ur Culture Indicated? Urine Glucose COVID-19 Source Nasal/Nares SARS-CoV-2 (PCR) Negative 09/11/21 09/11/21 09/11/21 09:40 09:40 09:40 WBC 2.75 L D RBC 4.33 L Hgb 12.5 L Hct 38.0 L MCV 87.8 MCH 28.9 MCHC 32.9 RDW 16.0 H Plt Count 210 MPV 9.5 Immature Gran % See Differential Neutrophils % 23.0 Band Neutrophils % Lymphocytes % 42.0 Atypical Lymphs % 17 Monocytes % 12.0 Eosinophils % 4.0 Basophils % 2.0 Nucleated RBC % 0 Absolute Neutrophils 0.63 L Absolute Lymphocytes 1.62 Absolute Monocytes 0.33 Absolute Eosinophils 0.11 Absolute Basophils 0.06 RBC Morphology See Below Polychromasia Present PT 10.4 INR 1.0 D-Dimer 2339 H VBG Lactate Sodium Potassium Chloride Carbon Dioxide Anion Gap BUN Creatinine Estimated GFR/1.73 m2 Glucose Calcium Phosphorus Magnesium Ferritin C-Reactive Protein NT-Pro-B Natriuret Pep Procalcitonin 0.1 Urine Color Urine Clarity Urine pH Ur Specific [place] Urine Protein Urine Ketones Urine Blood Urine Nitrite Urine Bilirubin Urine Urobilinogen Ur Leukocyte Esterase Urine RBC Urine WBC Ur Epithelial Cells Urine Crystals Urine Bacteria Urine Casts Urine Mucus Ur Culture Indicated? Urine Glucose COVID-19 Source SARS-CoV-2 (PCR) Objective Narrative Objective Narrative: CTA chest: Extensive ground-glass opacities consistent with COVID pneumonia.. No evidence of pulmonary embolic disease.
[2021-09-11] MEDS: Atorvastatin 10 MG TAB PO (20:13)
[2021-09-12] VITALS (9 sets, daily range): BP systolic 84–126; BP diastolic 47–79; PULSE 90–102; RESP 20–32; TEMP 36–36.8; O2SAT 90–96; BMI 22.1
[2021-09-12] MEDS: CEFEPIME 2 GM in Normal Saline 100 ML IVPB ×3 (01:36→17:16)
[2021-09-12] MEDS: Normal Saline Flush 10 ML SYR IVP ×2 (01:37→11:14)
[2021-09-12 07:33] LABS: HCT 33.2 % (40.0-50.0); HGB 10.9 g/dL (13.5-17.5); MCH 28.6 pg (27.0-33.0); MCHC 32.8 % (32.0-36.0); MCV 87.1 fL (80-95); MPV 9.8 fL (8.0-11.0); Nucleated RBC 0 %; Platelet Count 229 10^3/uL (130-400); RBC 3.81 10^6/uL (4.36-5.78); RDW 15.8 % (11.8-14.1); RDW-SD 48.9 fL
[2021-09-12 07:36] LABS: WBC 1.98 10^3/uL (4.4-10.8)
[2021-09-12 08:07] LABS: Absolute Basophil Count 0.02 10^3/uL (0.0-0.2); Absolute Lymphocyte Count 0.63 10^3/uL (1.2-3.4); Absolute Neutrophil Count 1.13 10^3/uL (1.2-6.7); Atypical Lymphocytes % 15; Bands % 6; Diff Comment Manual Differential; RBC Morphology Normal
[2021-09-12 08:11] LABS: ALT 31 U/L (16-63); AST 28 U/L (15-37); Albumin 2.1 g/dL (3.4-5.0); Alkaline Phosphatase 52 U/L (46-116); BUN 13 mg/dL (7-18); Bilirubin, Total 0.7 mg/dL (0.2-1.0); CREATININE 0.6 mg/dL (0.70-1.30); Calcium 7.9 mg/dL (8.5-10.1); Chloride 103 mmol/L (98-107); Glucose 125 mg/dL (74-106); Magnesium 2.2 mg/dL (1.8-2.4); Potassium 3.6 mmol/L (3.5-5.1); Sodium 136 mmol/L (136-145)
[2021-09-12 08:26] LABS: Bilirubin, Direct 0.2 mg/dL (0.0-0.2); PHOSPHORUS 3.5 mg/dL (2.6-4.7)
--- NOTE | 2021-09-12 08:53 | PUCON_ITS ---
General Date Of Service Date of service: 09/12/21 Time of Service: 07:30 Reason for Consult: Abnormal Chest CT Assessment and Plan Assessment and plan (1) NHL (non-Hodgkin's lymphoma): Status: Chronic (2) Neutropenic fever: Status: Acute (3) Ground glass opacity present on imaging of lung: Status: Acute (4) Acute respiratory failure with hypoxia: Status: Acute Assessment and plan: This is a 71 yo man with neutropenic fever and GGO on chest imaging. He is on cefepime and his prophylactic acyclovir. He has had 2 negative COVID tests and is at high risk of an opportunistic infection. The appearance of the CT is non specific, although it does not look like classic PJP (pneumatoceles and peripheral sparring) it still could be this. Other possibilities are a fungal infection, viral infection, or bacterial infection. There is some upper zone septal thickening, which theoretically could be lymphangitic spread of his malignancy, however the infiltrates are not consisten t with a malignant process. Ultimately in neutropenic fever patients with abnormal chest imaging should have a bronchoscopy completed within 24-48 hours if an etiology has not been discovered. We will plan for bronchoscopy with BAL at 2pm with general anesthesia. Given his previous echo at [facility] we will obtain a stat echo to ensure safety of the procedure. Patient is agreeable to procedure. Abnormal chest CT - bronchoscopy with BAL today at 2pm following a STAT echo - continue cefepime and ppx acyclovir - will test BAL for COVID, respiratory panel, fungal and bacterial cultures, cell diff, cytology, PJP, flow cytometry Hypoxic respiratory failure - continue supplemental O2 for sats >90% History of Present Illness Narrative: This is a 71 yo man with a recent diagnosis of Diffuse large B cell lymphoma. His DLBCL presented as a pericardial effusion and tamponade as well as pleural effusions. His last echo found an EF of 40%. He received his first R- CHOP cycle as an inpatient at [facility] on 08/05/21. He is on acyclovir for ppx but was not on Bactrim ppx. He presents to [facility] on 09/10/21 with shortness of breath and cough. He had 3 fever at home and says he started feeling ill on Friday of this week. He had a chest CT that found no PE but is significant for bilateral and diffuse ground glass infiltrates without peripheral sparring. He does not have mediastinal or hilar LAD that I can identify. He has had 2 negative COVID tests and has had 3 COVID vaccinations. He remains on full precautions in an abundance of safety. He has been leukopenic since admission and has been febrile. He has had neutropenia yesterday (820, 630), however this is improved to 1130 today. He is on 4 L and is comfortable on this. He is feeling ok but still is having some symptoms of SOB and cough. His cough is productive of just clear sputum. Review of Systems All systems reviewed & are unremarkable except as noted in HPI and below PFSH All Active Problems (Updated 09/11/21 @ 18:30 by Shara Moulton MD) Discharge planning issues (Acute) DVT prophylaxis (Acute) NHL (non-Hodgkin's lymphoma) (Chronic) Neutropenic fever (Acute) Ground glass opacity present on imaging of lung (Acute) Acute respiratory failure with hypoxia (Acute) Fever (Acute) Neutropenia with fever (Acute) Bronchopneumonia (Acute) Lymphoma (Acute) Hemorrhagic pericardial effusion (Acute) CHF (congestive heart failure) (Chronic) Ascites (Acute) Social History Smoking/Tobacco Use Status: Former Tobacco Use Smoking risk assessment performed?: Yes Drug use: Never Substance use type: does not use Do you feel safe in your relationship?: Yes Visit Medication and Allergies Active Medications Generic Name Dose Route Start Last Admin Trade Name Freq PRN Reason Stop Dose Admin Acetaminophen 650 mg 09/10/21 19:49 09/11/21 02:31 Acetaminophen 325 Mg Tab PO 650 mg Q4H PRN PRN Administration Acyclovir 400 mg 09/10/21 20:00 09/11/21 20:13 Acyclovir 400 Mg Tab PO 400 mg BID EVANGELISTA Administration Albuterol Sulfate 2 puff 09/11/21 08:53 Albuterol Hfa 8 Gm 60 Puff Inh IH Q4H PRN PRN Aspirin 81 mg 09/11/21 08:30 09/11/21 09:01 Aspirin 81 Mg Chew PO 81 mg DAILY EVANGELISTA Administration Atorvastatin Calcium 10 mg 09/10/21 20:00 09/11/21 20:13 Atorvastatin 10 Mg Tab PO 10 mg QPM EVANGELISTA Administration Device 1 each 09/11/21 09:00 Inhaler, Assist Device DIRECTED [facility] Dimethicone/Zinc Oxide 0 gm 09/10/21 19:45 Pavel Protect Cream 142 Gm Tube TP PRN PRN Hydroxyzine HCl 25 mg 09/10/21 19:49 Hydroxyzine Hcl 25 Mg Tab PO QID PRN PRN Cefepime HCl 2 gm/ Sodium 100 mls @ 200 mls/hr 09/11/21 18:00 09/12/21 02:10 Chloride IVPB Infused Q8H EVANGELISTA Infusion IV Miscellaneous Supplies 1 each 09/10/21 16:15 Iv Access IV DIRECTED EVANGELISTA Prednisone 20 mg 09/11/21 08:30 09/11/21 08:59 Prednisone 20 Mg Tab PO 20 mg DAILY EVANGELISTA Administration Prochlorperazine Maleate 5 mg 09/10/21 19:49 Prochlorperazine 5 Mg Tab PO Q6H PRN PRN Sodium Chloride 0 ml 09/10/21 16:09 09/12/21 01:37 Normal Saline Flush 10 Ml Syr IVP 10 ml PRN PRN Administration Zolpidem Tartrate 5 mg 09/10/21 19:49 Zolpidem 5 Mg Tab PO HS PRN MAY REPEAT X1 PRN Allergies No Known Allergies Allergy (Unverified 09/10/21 16:10) Exam Const General: no acute distress Nutritional Appearance: well nourished [facility] Head: normocephalic Ears: external ears normal and no periauricular adenopathy General nose exam: nasal mucous membranes and turbinates normal Face and sinus: sinuses nontender Mouth: oropharynx normal and moist mucous membranes Teeth and gingiva: dentition normal Eyes General: appearance normal, both eyes and all related structures Pupils: PERRL Neck Neck: normal visual inspection and no lymphadenopathy Chest Chest: normal inspection of the chest Resp Effort & Inspection: normal respiratory effort Auscultation: rales bilaterally throughout, no rhonchi and no wheezes Cardio Rate: regular rate Rhythm: regular rhythm Heart Sounds: S1 normal, S2 normal and no murmurs Pulses: radial pulses present bilaterally GI Inspection: normal to inspection Palpation: soft Skin General skin exam: no rashes or lesions noted Neuro General: patient alert, patient awake and patient oriented x3 Extrem General: no clubbing, cyanosis or edema Psych Mental Status: mental status grossly normal Affect: normal affect Attitude: cooperative Results Last Vital Signs Temp 36.8 C 09/11/21 20:38 Pulse 91 H 09/11/21 20:38 Resp 28 H 09/11/21 20:38 BP 107/64 09/11/21 20:38 Pulse Ox 92 09/11/21 20:38 Labs Result diagrams: 09/12/21 06:30 09/12/21 06:30 Labs: Laboratory Results - last 24 hr 09/11/21 09/11/21 09/11/21 08:58 09:40 09:40 WBC RBC Hgb Hct MCV MCH MCHC RDW Plt Count MPV Immature Gran % Neutrophils % Band Neutrophils % Lymphocytes % Atypical Lymphs % Monocytes % Eosinophils % Basophils % Nucleated RBC % Absolute Neutrophils Absolute Lymphocytes Absolute Monocytes Absolute Eosinophils Absolute Basophils RBC Morphology Polychromasia PT INR D-Dimer Sodium 135 L Potassium 3.3 L Chloride 99 Carbon Dioxide 25.0 Anion Gap 11.0 BUN 14 D Creatinine 0.9 Estimated GFR/1.73 m2 >= 60.00 Glucose 194 H Calcium 8.1 L Phosphorus 3.1 Cancelled Magnesium 1.7 L Ferritin 882 H Total Bilirubin Conjugated Bilirubin AST ALT Alkaline Phosphatase C-Reactive Protein 7.65 H NT-Pro-B Natriuret Pep 347 H Total Protein Albumin Procalcitonin COVID-19 Source Nasal/Nares SARS-CoV-2 (PCR) Negative 09/11/21 09/11/21 09/11/21 09:40 09:40 09:40 WBC 2.75 L D RBC 4.33 L Hgb 12.5 L Hct 38.0 L MCV 87.8 MCH 28.9 MCHC 32.9 RDW 16.0 H Plt Count 210 MPV 9.5 Immature Gran % See Differential Neutrophils % 23.0 Band Neutrophils % Lymphocytes % 42.0 Atypical Lymphs % 17 Monocytes % 12.0 Eosinophils % 4.0 Basophils % 2.0 Nucleated RBC % 0 Absolute Neutrophils 0.63 L Absolute Lymphocytes 1.62 Absolute Monocytes 0.33 Absolute Eosinophils 0.11 Absolute Basophils 0.06 RBC Morphology See Below Polychromasia Present PT 10.4 INR 1.0 D-Dimer 2339 H Sodium Potassium Chloride Carbon Dioxide Anion Gap BUN Creatinine Estimated GFR/1.73 m2 Glucose Calcium Phosphorus Magnesium Ferritin Total Bilirubin Conjugated Bilirubin AST ALT Alkaline Phosphatase C-Reactive Protein NT-Pro-B Natriuret Pep Total Protein Albumin Procalcitonin 0.1 COVID-19 Source SARS-CoV-2 (PCR) 09/12/21 09/12/21 06:30 06:30 WBC 1.98 L* RBC 3.81 L Hgb 10.9 L Hct 33.2 L MCV 87.1 MCH 28.6 MCHC 32.8 RDW 15.8 H Plt Count 229 MPV 9.8 Immature Gran % 0.0 Neutrophils % 51.0 Band Neutrophils % 6 Lymphocytes % 17.0 Atypical Lymphs % 15 Monocytes % 10.0 Eosinophils % 0.0 Basophils % 1.0 Nucleated RBC % 0 Absolute Neutrophils 1.13 L Absolute Lymphocytes 0.63 L Absolute Monocytes 0.20 Absolute Eosinophils 0.00 Absolute Basophils 0.02 RBC Morphology Normal Polychromasia PT INR D-Dimer Sodium 136 Potassium 3.6 Chloride 103 Carbon Dioxide 26.0 Anion Gap 7.0 BUN 13 Creatinine 0.6 L D Estimated GFR/1.73 m2 >= 60.00 Glucose 125 H Calcium 7.9 L Phosphorus 3.5 Magnesium 2.2 Ferritin Total Bilirubin 0.7 Conjugated Bilirubin 0.2 AST 28 ALT 31 Alkaline Phosphatase 52 C-Reactive Protein NT-Pro-B Natriuret Pep Total Protein 5.0 L Albumin 2.1 L Procalcitonin COVID-19 Source SARS-CoV-2 (PCR)
--- NOTE | 2021-09-12 09:33 | PDOC.CMPRO ---
- If Service Date Differs Date of service: 09/12/21 Time of Service: 09:33 Care Management Progress Note S/O:CM was unable to meet with Semaj due to Covid precautions but was able to speak to him on the phone. Semaj had just returned from having a bronchoscopy. He stated that he was feeling good and that the procedure went well. Semaj informed CM that he is independent in the community. He lives alone in a large, single family home and is able to care for himself and his home. He does not anticipate the need for any services at discharge. A: Semaj is a 71 year old man admitted on 08/10/22 with Fever and neutropenia P:Semaj will likely return home when medically cleared for discharge. He will follow up with his PCP and plan of care as prescribed and will transport via private vehicle with a friend. CM will continue to support Semaj and assess for discharge planning concerns.
[2021-09-12] MEDS: Acyclovir 400 MG TAB PO ×2 (09:39→19:32)
[2021-09-12] MEDS: predniSONE 20 MG TAB PO (09:39)
[2021-09-12] MEDS: Aspirin 81 MG CHEW PO (09:39)
--- NOTE | 2021-09-12 13:09 | ANES.PREOP_ITS ---
General Info Date of Service Date Performed: 09/12/21 Height: 6 ft 2 in Weight: 78.018 kg Body Mass Index (BMI): 22.1 Surgical Procedure: Operation Date: 09/12/21 14:10 Proposed Procedures Side Surgeon p Bronchoscopy Magalys Medrano MD Meds Allergies and Home Medications Allergies Allergy/AdvReac Type Severity Reaction Status Date / Time No Known Allergies Allergy Unverified 09/10/21 16:10 Home Medication Medication Instructions Recorded ibuprofen 600 mg PO TID PRN PRN #30 tab 04/14/13 prednisone 20 mg PO 09/10/21 psyllium husk [Metamucil] 1 tbsp PO DAILY 09/10/21 Current Visit Medications: Current Medications Generic Name Dose Route Start Last Admin Trade Name Freq PRN Reason Stop Dose Admin Acetaminophen 650 mg 09/10/21 19:49 09/11/21 02:31 Acetaminophen 325 Mg Tab PO 650 mg Q4H PRN PRN Administration Acyclovir 400 mg 09/10/21 20:00 09/12/21 09:39 Acyclovir 400 Mg Tab PO 400 mg BID EVANGELISTA Administration Albuterol Sulfate 2 puff 09/11/21 08:53 Albuterol Hfa 8 Gm 60 Puff Inh IH Q4H PRN PRN Aspirin 81 mg 09/11/21 08:30 09/12/21 09:39 Aspirin 81 Mg Chew PO 81 mg DAILY EVANGELISTA Administration Atorvastatin Calcium 10 mg 09/10/21 20:00 09/11/21 20:13 Atorvastatin 10 Mg Tab PO 10 mg QPM EVANGELISTA Administration Device 1 each 09/11/21 09:00 Inhaler, Assist Device DIRECTED REPLACED BY [facility] Dimethicone/Zinc Oxide 0 gm 09/10/21 19:45 Pavel Protect Cream 142 Gm Tube TP PRN PRN Hydroxyzine HCl 25 mg 09/10/21 19:49 Hydroxyzine Hcl 25 Mg Tab PO QID PRN PRN Cefepime HCl 2 gm/ Sodium 100 mls @ 200 mls/hr 09/11/21 18:00 09/12/21 11:13 Chloride IVPB 200 mls/hr Q8H EVANGELISTA Administration IV Miscellaneous Supplies 1 each 09/10/21 16:15 Iv Access IV DIRECTED REPLACED BY [facility] Prednisone 20 mg 09/11/21 08:30 09/12/21 09:39 Prednisone 20 Mg Tab PO 20 mg DAILY EVANGELISTA Administration Prochlorperazine Maleate 5 mg 09/10/21 19:49 Prochlorperazine 5 Mg Tab PO Q6H PRN PRN Sodium Chloride 0 ml 09/10/21 16:09 09/12/21 11:14 Normal Saline Flush 10 Ml Syr IVP 10 ml PRN PRN Administration Zolpidem Tartrate 5 mg 09/10/21 19:49 Zolpidem 5 Mg Tab PO HS PRN MAY REPEAT X1 PRN PFSH Active Problems Active Problems: Problem Status Onset Code Discharge planning issues Z02.9 DVT prophylaxis Z29.9 NHL (non-Hodgkin's lymphoma) C85.90 Neutropenic fever D70.9, R50.81 Ground glass opacity present on imaging of lung R91.8 Acute respiratory failure with hypoxia J96.01 Fever R50.9 Neutropenia with fever D70.9, R50.81 Bronchopneumonia J18.0 Lymphoma C85.90 Hemorrhagic pericardial effusion I31.2 CHF (congestive heart failure) I50.9 Ascites R18.8 Tobacco Smoking/Tobacco Use Status: Former Tobacco Use Substance Use Substance use: Never Substance use type: does not use Vital Signs and Lab Results Vital Signs Most Recent Vital Signs in EMR: Most Recent Vital Signs Temp Pulse Resp BP Pulse Ox 36.5 C 91 H 32 H 117/79 90 L 09/12/21 09:42 09/12/21 09:42 09/12/21 09:42 09/12/21 09:42 09/12/21 09:42 Lab Results Result Diagrams: 09/12/21 06:30 09/12/21 06:30 Blood Type / Crossmatch: 2 No Data to Display Complete Blood Count: White Blood Count 1.98 10^3/uL (4.4-10.8) L* 09/12/21 06:30 09/12/21 Red Blood Count 3.81 10^6/uL (4.36-5.78) L 09/12/21 06:30 09/12/21 Hemoglobin 10.9 g/dL (13.5-17.5) L 09/12/21 06:30 09/12/21 Hematocrit 33.2 % (40.0-50.0) L 09/12/21 06:30 09/12/21 Platelet Count 229 10^3/uL (130-400) 09/12/21 06:30 09/12/21 Venous Blood Lactate 1.2 mmol/L (0.6-1.4) 09/11/21 07:05 09/11/21 Complete Metabolic Panel: Sodium Level 136 mmol/L (136-145) 09/12/21 06:30 09/12/21 Potassium Level 3.6 mmol/L (3.5-5.1) 09/12/21 06:30 09/12/21 Chloride Level 103 mmol/L (98-107) 09/12/21 06:30 09/12/21 Carbon Dioxide Level 26.0 mmol/L (21.0-32.0) 09/12/21 06:30 09/12/21 Blood Urea Nitrogen 13 mg/dL (7-18) 09/12/21 06:30 09/12/21 Creatinine 0.6 mg/dL (0.70-1.30) L 09/12/21 06:30 09/12/21 Estimated GFR/1.73 m2 >= 60.00 (mL/min/1.73m2) 09/12/21 06:30 09/12/21 Magnesium Level 2.2 mg/dL (1.8-2.4) 09/12/21 06:30 09/12/21 Calcium Level 7.9 mg/dL (8.5-10.1) L 09/12/21 06:30 09/12/21 Albumin 2.1 g/dL (3.4-5.0) L 09/12/21 06:30 09/12/21 Glucose Level 125 mg/dL (74-106) H 09/12/21 06:30 09/12/21 Hemoglobin A1c 7.0 % (<5.7) H 09/12/21 06:30 09/12/21 C-Reactive Protein 7.65 mg/dL (0.0-0.3) H 09/11/21 09:40 09/11/21 Liver Function Panel: Alanine Aminotransferase (ALT/SGPT) 31 U/L (16-63) 09/12/21 06:30 09/12/21 Aspartate Amino Transf (AST/SGOT) 28 U/L (15-37) 09/12/21 06:30 09/12/21 Coagulation Panel: INR International Normalized Ratio 1.0 (0.9-1.1) 09/11/21 09:40 09/11/21 Prothrombin Time 10.4 sec (9.3-11.0) 09/11/21 09:40 09/11/21 D-Dimer 2339 ng/mlFEU (<500) H 09/11/21 09:40 09/11/21 Cardiac Panel: MB-Ltg-N-Type Natriuretic Peptide 347 pg/mL (<300) H 09/11/21 Arterial Blood Gas: No Data to Display Venous Blood Gas: No Data to Display Pancreas Panel: No Data to Display Thyroid Panel: No Data to Display Infectious Disease: Coronavirus (COVID-19)(PCR) Negative (Negative) 09/11/21 08:58 09/11/21 Coronavirus 2019 Source Nasal/Nares 09/11/21 08:58 09/11/21 Blood Cultures: No Data to Display Toxicology Panel: No Data to Display Imaging and Studies Imaging and Studies Study information below may be from another EMR and interpreted by another provider. Please see original notes in EMR for more complete details. EKG Summary: 09/05/2021: Exam: Resting ECG Reason for Exam: C83.30 diffuse large B-cell lymphoma Patient Location: O HR:111 bpm ECG Measurements Heart Rate 111 AXIS IA 140 P 63 QRSd 87 QRS 10 QT 329 T109 QTc 446 Conclusion Sinus tachycardia...rate> 99 Significant artifact Poor R wave progression Probable low voltage in limb leads
--- NOTE | 2021-09-12 13:45 | W.ANESPRE ---
General Info Date of Service Date Performed: 09/12/21 Height: 6 ft 2 in Weight: 78.018 kg Body Mass Index (BMI): 22.1 Surgical Procedure: Operation Date: 09/12/21 14:10 Proposed Procedures Side Surgeon p Bronchoscopy Magalys Medrano MD Actual Procedures Side Surgeon p Bronchoscopy Not Applicable Magalys Medrano MD Meds Allergies and Home Medications Allergies Allergy/AdvReac Type Severity Reaction Status Date / Time No Known Allergies Allergy Unverified 09/10/21 16:10 Home Medication Medication Instructions Recorded ibuprofen 600 mg PO TID PRN PRN #30 tab 04/14/13 prednisone 20 mg PO 09/10/21 psyllium husk [Metamucil] 1 tbsp PO DAILY 09/10/21 Current Visit Medications: Current Medications Generic Name Dose Route Start Last Admin Trade Name Freq PRN Reason Stop Dose Admin Acetaminophen 650 mg 09/10/21 19:49 09/11/21 02:31 Acetaminophen 325 Mg Tab PO 650 mg Q4H PRN PRN Administration Acyclovir 400 mg 09/10/21 20:00 09/12/21 09:39 Acyclovir 400 Mg Tab PO 400 mg BID EVANGELISTA Administration Albuterol Sulfate 2 puff 09/11/21 08:53 Albuterol Hfa 8 Gm 60 Puff Inh IH Q4H PRN PRN Albuterol/Ipratropium 3 ml 09/12/21 13:29 Albuterol/Ipratropium 3 Ml Upd Vial UPD Q2H PRN PRN for SOB, wheezing, or cough Aspirin 81 mg 09/11/21 08:30 09/12/21 09:39 Aspirin 81 Mg Chew PO 81 mg DAILY EVANGELISTA Administration Atorvastatin Calcium 10 mg 09/10/21 20:00 09/11/21 20:13 Atorvastatin 10 Mg Tab PO 10 mg QPM EVANGELISTA Administration Device 1 each 09/11/21 09:00 Inhaler, Assist Device MC DIRECTED EVANGELISTA Dimethicone/Zinc Oxide 0 gm 09/10/21 19:45 Pavel Protect Cream 142 Gm Tube TP PRN PRN Hydroxyzine HCl 25 mg 09/10/21 19:49 Hydroxyzine Hcl 25 Mg Tab PO QID PRN PRN Cefepime HCl 2 gm/ Sodium 100 mls @ 200 mls/hr 09/11/21 18:00 09/12/21 11:13 Chloride IVPB 200 mls/hr Q8H EVANGELISTA Administration IV Miscellaneous Supplies 1 each 09/10/21 16:15 Iv Access IV DIRECTED EVANGELISTA Prednisone 20 mg 09/11/21 08:30 09/12/21 09:39 Prednisone 20 Mg Tab PO 20 mg DAILY EVANGELISTA Administration Prochlorperazine Maleate 5 mg 09/10/21 19:49 Prochlorperazine 5 Mg Tab PO Q6H PRN PRN Sodium Chloride 0 ml 09/10/21 16:09 09/12/21 11:14 Normal Saline Flush 10 Ml Syr IVP 10 ml PRN PRN Administration Zolpidem Tartrate 5 mg 09/10/21 19:49 Zolpidem 5 Mg Tab PO HS PRN MAY REPEAT X1 PRN PFSH Active Problems Active Problems: Problem Status Onset Code Discharge planning issues Z02.9 DVT prophylaxis Z29.9 NHL (non-Hodgkin's lymphoma) C85.90 Neutropenic fever D70.9, R50.81 Ground glass opacity present on imaging of lung R91.8 Acute respiratory failure with hypoxia J96.01 Fever R50.9 Neutropenia with fever D70.9, R50.81 Bronchopneumonia J18.0 Lymphoma C85.90 Hemorrhagic pericardial effusion I31.2 CHF (congestive heart failure) I50.9 Ascites R18.8 Tobacco Smoking/Tobacco Use Status: Former Tobacco Use Substance Use Substance use: Never Substance use type: does not use Vital Signs and Lab Results Vital Signs Most Recent Vital Signs in EMR: Most Recent Vital Signs Temp Pulse Resp BP Pulse Ox 36.5 C 91 H 32 H 117/79 90 L 09/12/21 09:42 09/12/21 09:42 09/12/21 09:42 09/12/21 09:42 09/12/21 09:42 Lab Results Result Diagrams: 09/12/21 06:30 09/12/21 06:30 Blood Type / Crossmatch: No Data to Display Complete Blood Count: White Blood Count 1.98 10^3/uL (4.4-10.8) L* 09/12/21 06:30 09/12/21 Red Blood Count 3.81 10^6/uL (4.36-5.78) L 09/12/21 06:30 09/12/21 Hemoglobin 10.9 g/dL (13.5-17.5) L 09/12/21 06:30 09/12/21 Hematocrit 33.2 % (40.0-50.0) L 09/12/21 06:30 09/12/21 Platelet Count 229 10^3/uL (130-400) 09/12/21 06:30 09/12/21 Venous Blood Lactate 1.2 mmol/L (0.6-1.4) 09/11/21 07:05 09/11/21 Complete Metabolic Panel: Sodium Level 136 mmol/L (136-145) 09/12/21 06:30 09/12/21 Potassium Level 3.6 mmol/L (3.5-5.1) 09/12/21 06:09/12/21 Chloride Level 103 mmol/L (98-107) 09/12/21 06:30 09/12/21 Carbon Dioxide Level 26.0 mmol/L (21.0-32.0) 09/12/21 06:30 09/12/21 Blood Urea Nitrogen 13 mg/dL (7-18) 09/12/21 06:30 09/12/21 Creatinine 0.6 mg/dL (0.70-1.30) L 09/12/21 06:30 09/12/21 Estimated GFR/1.73 m2 >= 60.00 (mL/min/1.73m2) 09/12/21 06:30 09/12/21 Magnesium Level 2.2 mg/dL (1.8-2.4) 09/12/21 06:09/12/21 Calcium Level 7.9 mg/dL (8.5-10.1) L 09/12/21 06:30 09/12/21 Albumin 2.1 g/dL (3.4-5.0) L 09/12/21 06:30 09/12/21 Glucose Level 125 mg/dL (74-106) H 09/12/21 06:30 09/12/21 Hemoglobin A1c 7.0 % (<5.7) H 09/12/21 06:30 09/12/21 C-Reactive Protein 7.65 mg/dL (0.0-0.3) H 09/11/21 09:40 09/11/21 Liver Function Panel: Alanine Aminotransferase (ALT/SGPT) 31 U/L (16-63) 09/12/21 06:30 09/12/21 Aspartate Amino Transf (AST/SGOT) 28 U/L (15-37) 09/12/21 06:30 09/12/21 Coagulation Panel: INR International Normalized Ratio 1.0 (0.9-1.1) 09/11/21 09:40 09/11/21 Prothrombin Time 10.4 sec (9.3-11.0) 09/11/21 09:40 09/11/21 D-Dimer 2339 ng/mlFEU (<500) H 09/11/21 09:40 09/11/21 Cardiac Panel: CE-Ira-O-Type Natriuretic Peptide 347 pg/mL (<300) H 09/11/21 Arterial Blood Gas: No Data to Display Venous Blood Gas: No Data to Display Pancreas Panel: No Data to Display Thyroid Panel: No Data to Display Infectious Disease: Coronavirus (COVID-19)(PCR) Negative (Negative) 09/11/21 08:58 09/11/21 Coronavirus 2019 Source Nasal/Nares 09/11/21 08:58 09/11/21 Blood Cultures: No Data to Display Toxicology Panel: No Data to Display Imaging and Studies Imaging and Studies Study information below may be from another EMR and interpreted by another provider. Please see original notes in EMR for more complete details. EKG Summary: 09/05/2021: Exam: Resting ECG Reason for Exam: C83.30 diffuse large B-cell lymphoma Patient Location: O HR:111 bpm ECG Measurements Heart Rate 111 AXIS AZ 140 P 63 QRSd 87 QRS 10 QT 329 T109 QTc 446 Conclusion Sinus tachycardia...rate> 99 Significant artifact Poor R wave progression Probable low voltage in limb leads Echocardiogram Summary: 09/12/2021: 1. There is no pericardial effusion 2. Left ventricular chamber size, wall thickness within normal limits, EF 55%. 3. Mild aortic valve regurgitation 4. Compared to the 08/01/21, the pericardial effusion was not visualized anymore. The left ventricular systolic function has improved. Anesthesia Assessment and Plan Anesthesia History Personal History: No History of Anesthesia Complications Family History: No Family History of Anesthesia Complications Exercise Tolerance Exercise Tolerance: Metabolic Equivalents>4 Pertinent Negatives Pertinent Negatives: No Symptoms of GERD, No Major Cardiovascular Symptoms or Complaints, No Major Pulmonary Symptoms or Complaints and No History of CVA/TIA Cardiac & Pulmonary Exam Cardiac Exam: Normal S1/S2 Heart Sounds Pulmonary Exam: Clear Bilateral Breath Sounds Implantable Cardiac Device Does patient have a Pacemaker or an ICD?: No Airway Exam Known Difficult Airway: No Mallampati Class: 1 Mouth Opening: Normal (> 3cm) Thyromental Distance: Greater than 3 cm Neck Range of Motion: Full ROM Neck Circumference: Normal Teeth Condition: Normal Dentition Airway Comments: High angle narrow palate ASA Classification ASA Score: ASA 2 Emergency Case?: No NPO Status NPO Status: NPO Clears >2 hours, Solids >8 hours Anesthesia Plan Resuscitation Status: Full Code Anesthesia Technique: General Anesthesia Airway Planned: Endotracheal Tube Monitors Used: Standard Monitors
[2021-09-12] MEDS: Lactated Ringers 1,000 ML 30 ML IV (14:14)
--- NOTE | 2021-09-12 14:42 | PAPNONF_PTH ---
PATIENT: Semaj Tong III LOC: U#:[id number] AGE/SX: 71/M ROOM: 212 RE09/10/[address]: Jeb Whyte : 1950 BED: A DIS: 09/17/2021 SPEC #: [id number] RECD: 09/12/21 18:32 STATUS: AURA REMagda #: [id number] ALAINA: 09/12/21 14:[address]: Jeb Whyte DEPT: [facility] Cytology RECD BY: Celine Mendoza ENTERED: 09/12/21 18:34 SP TYPE: MARIANNA HART DR: MD Nirmala Edward Diane Tissues: 1 - BODY FLUID CYTO(NOT S/U/N/EM)[facility] 2 - FLOW CYTOMETRY NODE/TISSUE Procedures: BODY FLUID CYTO(NOT SPU/UR/NIP/ENDOM)[facility] SPECIAL STAIN 1 Comments: [id number] (FLOW CYTOMETRY - NOT PERFORMED PER [facility])
--- NOTE | 2021-09-12 15:28 | RESPIRATORY ---
Addendum entered by Allie Anthony 09/12/21 15:30: Pt stable, awake and alert on high flow nc. Original Note: Bronch assist done with BAL. High flow 60 lpm/ 90% pre and post procedure. Left pt on 30 LPM/ 45% fio2 to recover for 30 mins. Plan to treat as needed.
--- NOTE | 2021-09-12 15:57 | W.ANESPOSTOP ---
Postoperative Evaluation Date, Time and Location Date Performed: 09/12/21 Time Performed: 15:57 Patient Location: Med/Surg Vital Signs Most Recent Imported Vital Signs: Most Recent Vital Signs Temp Pulse Resp BP Pulse Ox 36 C L 93 H 28 H 98/64 L 94 09/12/21 15:31 09/12/21 15:31 09/12/21 15:31 09/12/21 15:31 09/12/21 15:31 Pain Score Most Recent Pain Score: Most Recent Pain Score Pain Level 0 09/12/21 15:31 Assessment Mental Status: Awake (Alert & Oriented to Patient Baseline) Airway and Respiratory Function: Patent airway with normal (patient baseline) respiratory exam Cardiovascular Function: Hemodynamically Stable Hydration Status: Adequately Hydrated Nausea & Vomiting: No Nausea or Vomiting Pain: Pt. Denies Any Pain Peripheral Nerve Block: Patient did not receive a nerve block
--- NOTE | 2021-09-12 16:11 | W.PM.OP ---
Date of service: 09/12/21 Time of Service: 14:00 Operative Note Operative Note Bronchoscopy Date:09/12/21 Time:1450 Indication:Neutropenic fever, Abnormal chest CT Procedure performed: Flexible bronchoscopy with BAL Sedation plan: General anesthesia Medications used: See separate anesthesia documentation Informed consent was obtained after the risks and benefits or the procedure were discussed. The patient was sedated and intubed by anesthesia. A proper and complete OR compliant time out was performed. The therapeutic 6.2mm Olympus bronchoscope was inserted through the endotracheal tube. The trachea was midline and without lesion or injury. The mucosa appeared normal and there were no signs of tracheomalacia. The wan was sharp. All bronchial subsegments were visualized within each lobe and showed normal anatomy and appearance. A bronchoalveolar lavage was performed in the right middle lobe. A total of 120 cc of saline was administered with a return of 60 cc. The fluid was slightly cloudy in appearance with visible cellular debris.The RML was reassessed to ensure no bleeding was occuring. The bronchoscope was then removed and the case terminated. The patient was observed in the OR room for 1 hour as there are no negative pressure PACU rooms. At the time of his discharge back to med/surg he was in a stable condition. Samples collected:RML BAL Testing ordered:please see my consult note from earlier today Complications:None Magalys Medrano MD Pulmonary & Critical Care Medicine
--- NOTE | 2021-09-12 18:30 | W.PM.PROGNOT ---
Date of Service Date of service: 09/12/21 Time of Service: 17:15 Assessment and Plan Assessment and plan (1) Acute respiratory failure with hypoxia: Status: Acute Assessment and plan: S/p bronchoscopy today. Await BAL results. Keep on airborne precautions. Continue cefepime. Consider bactrim. Continue IS/acapella. No change to steroid dose - continue prednisone 20 mg daily, per my discussion with Dr Medrano. (2) Ground glass opacity present on imaging of lung: Status: Acute Assessment and plan: As above (3) Neutropenic fever: Status: Acute Assessment and plan: In setting of chemotherapy/NHL. As above (4) NHL (non-Hodgkin's lymphoma): Status: Chronic Assessment and plan: On chemotherapy. Question of possible lung involvement. Studies done today during bronchoscopy. (5) DVT prophylaxis: Status: Acute Assessment and plan: Resume lovenox (6) Discharge planning issues: Status: Acute Assessment and plan: Full code Continues to require hospitalization. Keep on COVID precautions Subjective Subjective Interval history since last seen: Mr Tong is s/p bronchoscopy today. Went well. Back on 4L of O2 and actually feels better than before the bronchoscopy. Was very excited about dinner - tasted great. Denied dizziness, chest pain, nausea, shortness of breath while on 4L of O2. Exam Narrative Exam Narrative: General: male, sitting up in bed A&Ox3, no dyspnea/tachypnea/cyanosis on 4L of O2 by NC HEENT: EOMI, MMM Heart: RRR, no m/r/g Lungs: CTAB Abdomen: soft, nontender, nondistended Extremities: no edema BLE's Objective Last Vital Signs Temp 36.2 C L 09/12/21 15:57 Pulse 90 09/12/21 15:57 Resp 26 H 09/12/21 15:57 BP 100/65 09/12/21 15:57 Pulse Ox 96 09/12/21 15:57 Laboratory Results - last 24 hr 09/11/21 09/12/21 09/12/21 Unknown 06:30 06:30 WBC 1.98 L* RBC 3.81 L Hgb 10.9 L Hct 33.2 L MCV 87.1 MCH 28.6 MCHC 32.8 RDW 15.8 H Plt Count 229 MPV 9.8 Immature Gran % 0.0 Neutrophils % 51.0 Band Neutrophils % 6 Lymphocytes % 17.0 Atypical Lymphs % 15 Monocytes % 10.0 Eosinophils % 0.0 Basophils % 1.0 Nucleated RBC % 0 Absolute Neutrophils 1.13 L Absolute Lymphocytes 0.63 L Absolute Monocytes 0.20 Absolute Eosinophils 0.00 Absolute Basophils 0.02 RBC Morphology Normal Sodium 136 Potassium 3.6 Chloride 103 Carbon Dioxide 26.0 Anion Gap 7.0 BUN 13 Creatinine 0.6 L D Estimated GFR/1.73 m2 >= 60.00 Glucose 125 H Hemoglobin A1c Calcium 7.9 L Phosphorus 3.5 Magnesium 2.2 Total Bilirubin 0.7 Conjugated Bilirubin 0.2 AST 28 ALT 31 Alkaline Phosphatase 52 Total Protein 5.0 L Albumin 2.1 L Fluid Source Fluid Color Fluid Clarity Fluid WBC Fld Polynuclear WBCs % Fluid Mononuclear Cell Fluid Other Cells Path Cons Comment Add-On Test Request TNP Miscellaneous Test 09/12/21 09/12/21 09/12/21 06:30 14:42 14:42 WBC RBC Hgb Hct MCV MCH MCHC RDW Plt Count MPV Immature Gran % Neutrophils % Band Neutrophils % Lymphocytes % Atypical Lymphs % Monocytes % Eosinophils % Basophils % Nucleated RBC % Absolute Neutrophils Absolute Lymphocytes Absolute Monocytes Absolute Eosinophils Absolute Basophils RBC Morphology Sodium Potassium Chloride Carbon Dioxide Anion Gap BUN Creatinine Estimated GFR/1.73 m2 Glucose Hemoglobin A1c 7.0 H Calcium Phosphorus Magnesium Total Bilirubin Conjugated Bilirubin AST ALT Alkaline Phosphatase Total Protein Albumin Fluid Source Cancelled Fluid Color Cancelled Fluid Clarity Cancelled Fluid WBC Cancelled Fld Polynuclear WBCs % Cancelled Fluid Mononuclear Cell Cancelled Fluid Other Cells Cancelled Path Cons Comment Cancelled Add-On Test Request Miscellaneous Test Cancelled
[2021-09-12] MEDS: Atorvastatin 10 MG TAB PO (19:32)
[2021-09-13] MEDS: Normal Saline Flush 10 ML SYR IVP ×2 (01:33→17:14)
[2021-09-13] MEDS: CEFEPIME 2 GM in Normal Saline 100 ML IVPB ×3 (01:33→17:14)
[2021-09-13 06:32] VITALS: BP 113/70; PULSE 98; RESP 20; TEMP 36.7; O2SAT 91
[2021-09-13 07:06] LABS: Abs Immature Grans 0.24 10^3/uL (0.0-0.06); HCT 37.6 % (40.0-50.0); MCH 28.2 pg (27.0-33.0); MCHC 31.9 % (32.0-36.0); MCV 88.5 fL (80-95); MPV 9.2 fL (8.0-11.0); RBC 4.25 10^6/uL (4.36-5.78); RDW 16.4 % (11.8-14.1); RDW-SD 51.9 fL
[2021-09-13 07:10] LABS: Platelet Count 378 10^3/uL (130-400); WBC 3.17 10^3/uL (4.4-10.8)
[2021-09-13 07:41] LABS: BUN 13 mg/dL (7-18); C-Reactive Protein 5.06 mg/dL (0.0-0.3); CREATININE 0.7 mg/dL (0.70-1.30); Chloride 100 mmol/L (98-107); Glucose 109 mg/dL (74-106); Magnesium 1.8 mg/dL (1.8-2.4); Potassium 3.5 mmol/L (3.5-5.1); Sodium 134 mmol/L (136-145)
[2021-09-13 07:50] LABS: Absolute Lymphocyte Count 1.17 10^3/uL (1.2-3.4); Absolute Monocyte Count 0.44 10^3/uL (0.1-0.8); Absolute Neutrophil Count 1.55 10^3/uL (1.2-6.7)
[2021-09-13 07:51] LABS: Diff Comment Manual Differential; RBC Morphology Normal
[2021-09-13] MEDS: Enoxaparin 40 MG/0.4 ML SYR SC (08:15)
[2021-09-13] MEDS: Acyclovir 400 MG TAB PO ×2 (08:15→20:31)
[2021-09-13] MEDS: Aspirin 81 MG CHEW PO (08:16)
[2021-09-13] MEDS: predniSONE 20 MG TAB PO (08:16)
[2021-09-13 08:18] LABS: Nucleated RBC 0 %
--- NOTE | 2021-09-13 08:20 | PDOC.CMPRO ---
- If Service Date Differs Date of service: 09/13/21 Time of Service: 08:20 Care Management Progress Note S/O:CM was unable to meet with Semaj due to Covid precautions but was able to speak to him on the phone. He was again pleasant and cooperative with the conversation. Semaj stated that he continues to feel well. The studies ordered on the bronchial washings from the bronchoscopy yesterday are not back yet, so he remains on isolation. Semaj denied the need for any assistance or services today but did request Metamucil, which was ordered by the provider. A: Semaj is a 71 year old man admitted on 08/10/22 with Fever and neutropenia P:Semaj will likely return home when medically cleared for discharge. He will follow up with his PCP and plan of care as prescribed and will transport via private vehicle with a friend. CM will continue to support Semaj and assess for discharge planning concerns.
[2021-09-13 08:23] VITALS: BP 113/64; PULSE 103; RESP 18; TEMP 37.7; O2SAT 94
[2021-09-13 15:36] VITALS: BP 115/70; PULSE 91; RESP 19; TEMP 36.6; O2SAT 93
[2021-09-13] MEDS: Psyllium PKT 1 EACH PO ×2 (16:02→20:31)
[2021-09-13 17:02] LABS: Mononuclear Cells 44 %; Other Cells 52 %
[2021-09-13 17:05] LABS: Polynuclear Cells 4 %
[2021-09-13 18:05] LABS: Legionella Ag Detection Urine Negative (Negative)
[2021-09-13 19:11] LABS: Source Nasopharynx
--- NOTE | 2021-09-13 19:11 | W.PM.PROGNOT ---
Date of Service Date of service: 09/13/21 Time of Service: 19:11 Assessment and Plan Assessment and plan (1) Acute respiratory failure with hypoxia: Status: Acute Assessment and plan: S/p bronchoscopy yesterday. Results are not yet available - the COVID results would not be back until tomorrow. Await BAL results. Keep on airborne precautions. Continue cefepime. Consider bactrim. Continue IS/acapella. Continue prednisone 20 mg daily. (2) Ground glass opacity present on imaging of lung: Status: Acute Assessment and plan: As above (3) Neutropenic fever: Status: Acute Assessment and plan: In setting of chemotherapy/NHL. As above (4) NHL (non-Hodgkin's lymphoma): Status: Chronic Assessment and plan: On chemotherapy. Question of possible lung involvement. We are not sure that there was enough material collected to be able to do flow cytometry. (5) DVT prophylaxis: Status: Acute Assessment and plan: SC lovenox (6) Discharge planning issues: Status: Acute Assessment and plan: Full code Continues to require hospitalization. Keep on COVID precautions Subjective Subjective Interval history since last seen: Mr Tong states that his breathing is better. IS is still very hard for him. We discussed how important it was to use it. Denies dizziness, chest pain, nausea. Endorses an episode of fecal incontinence. Requests metamucil for it. Exam Narrative Exam Narrative: General: male, sitting up in a chair, A&Ox3, no dyspnea/tachypnea on 4L of O2 by NC; fingertips are purplish pink HEENT: EOMI, MMM Heart: RRR, no m/r/g Lungs: CTAB Abdomen: soft, nontender, nondistended Extremities: no edema BLE's Objective Last Vital Signs Temp 36.6 C 09/13/21 15:36 Pulse 91 H 09/13/21 15:36 Resp 19 09/13/21 15:36 BP 115/70 09/13/21 15:36 Pulse Ox 93 09/13/21 15:36 Laboratory Results - last 24 hr 09/12/21 09/12/21 09/12/21 13:05 14:42 14:42 WBC RBC Hgb Hct MCV MCH MCHC RDW Plt Count MPV Immature Gran % Neutrophils % Lymphocytes % Monocytes % Eosinophils % Basophils % Nucleated RBC % Absolute Neutrophils Absolute Lymphocytes Absolute Monocytes Absolute Eosinophils Absolute Basophils RBC Morphology Sodium Potassium Chloride Carbon Dioxide Anion Gap BUN Creatinine Estimated GFR/1.73 m2 Glucose Calcium Magnesium C-Reactive Protein Fluid Source Fluid Color Not Applicable Fluid Clarity Not Applicable Fluid WBC Not Applicable Fld Polynuclear WBCs % 4 Fluid Mononuclear Cell 44 Fluid Other Cells 52 SARS-CoV-2 (PCR) Cancelled Nasopharyn COVID-19 PCR Cancelled Urine Legionella Ag Negative Path Cons Comment See Comment Ref Test Perform Site Cancelled 09/13/21 09/13/21 06:20 06:20 WBC 3.17 L D RBC 4.25 L Hgb 12.0 L Hct 37.6 L MCV 88.5 MCH 28.2 MCHC 31.9 L RDW 16.4 H Plt Count 378 D MPV 9.2 Immature Gran % 0.0 Neutrophils % 49.0 Lymphocytes % 37.0 Monocytes % 14.0 Eosinophils % 0.0 Basophils % 0.0 Nucleated RBC % 0 Absolute Neutrophils 1.55 Absolute Lymphocytes 1.17 L Absolute Monocytes 0.44 Absolute Eosinophils 0.00 Absolute Basophils 0.00 RBC Morphology Normal Sodium 134 L Potassium 3.5 Chloride 100 Carbon Dioxide 23.0 Anion Gap 11.0 BUN 13 Creatinine 0.7 Estimated GFR/1.73 m2 >= 60.00 Glucose 109 H Calcium 8.0 L Magnesium 1.8 C-Reactive Protein 5.06 H Fluid Source Fluid Color Fluid Clarity Fluid WBC Fld Polynuclear WBCs % Fluid Mononuclear Cell Fluid Other Cells SARS-CoV-2 (PCR) Nasopharyn COVID-19 PCR Urine Legionella Ag Path Cons Comment Ref Test Perform Site
[2021-09-13 19:50] LABS: COVID-19 PCR Negative (Negative); Influenza A PCR Negative (Negative); Influenza B PCR Negative (Negative); RSV PCR Negative (Negative)
[2021-09-13] MEDS: Atorvastatin 10 MG TAB PO (20:31)
[2021-09-14] MEDS: CEFEPIME 2 GM in Normal Saline 100 ML IVPB ×3 (01:55→17:36)
[2021-09-14 07:20] LABS: Abs Immature Grans 0.39 10^3/uL (0.0-0.06); HCT 34.9 % (40.0-50.0); HGB 11.2 g/dL (13.5-17.5); MCH 28.3 pg (27.0-33.0); MCHC 32.1 % (32.0-36.0); MCV 88.1 fL (80-95); Platelet Count 344 10^3/uL (130-400); RBC 3.96 10^6/uL (4.36-5.78); RDW 16.4 % (11.8-14.1); RDW-SD 51.4 fL; WBC 3.49 10^3/uL (4.4-10.8)
[2021-09-14 07:35] LABS: Anion Gap 6.2 mmol/L (3-11); BUN 12 mg/dL (7-18); CO2 26.8 mmol/L (21.0-32.0); CREATININE 0.7 mg/dL (0.70-1.30); Calcium 7.7 mg/dL (8.5-10.1); Chloride 102 mmol/L (98-107); Glucose 106 mg/dL (74-106); Magnesium 1.8 mg/dL (1.8-2.4); Potassium 3.5 mmol/L (3.5-5.1); Sodium 135 mmol/L (136-145)
[2021-09-14 08:07] LABS: Absolute Neutrophil Count 1.99 10^3/uL (1.2-6.7); Bands % 7
[2021-09-14 08:08] LABS: Absolute Lymphocyte Count 1.26 10^3/uL (1.2-3.4); Absolute Monocyte Count 0.17 10^3/uL (0.1-0.8); Atypical Lymphocytes % 10; Myelocytes % 2; Nucleated RBC 0 %
[2021-09-14 08:10] LABS: Diff Comment Manual Differential; RBC Morphology Normal
[2021-09-14] MEDS: Enoxaparin 40 MG/0.4 ML SYR SC (08:36)
[2021-09-14] MEDS: Aspirin 81 MG CHEW PO (08:37)
[2021-09-14] MEDS: Psyllium PKT 1 EACH PO ×2 (08:37→19:24)
[2021-09-14] MEDS: predniSONE 20 MG TAB 60 MG PO (08:37)
[2021-09-14] MEDS: Acyclovir 400 MG TAB PO ×2 (08:37→19:23)
--- NOTE | 2021-09-14 09:21 | CMPROGNOTE_ITS ---
- If Service Date Differs Date of service: 09/14/21 Time of Service: 09:21 Care Management Progress Note S/O:Semaj was sitting up in a chair when CM met with him. He was pleasant in interaction and engaged well with CM. The Covid test done on the bronchial washings came back negative so precautions have been discontinued, which Semaj is pleased about. He stated that he is feeling much better. He informed CM that the diagnosis of lymphoma is a new one and that he has been getting treatments for the past month to 6 weeks. 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 Although he enjoyed the work and the traveling, he did state that after a while, the glamour wears off. Semaj anticipates that he will need to remain at [facility] until more of the bronchial washing studies are resulted. A: Semaj is a 71 year old man admitted on 08/10/22 with Fever and neutropenia P:Semaj will likely return home when medically cleared for discharge. He will follow up with his PCP, Oncologist and plan of care as prescribed and will transport via private vehicle with a friend. CM will continue to support Semaj and assess for discharge planning concerns.
--- NOTE | 2021-09-14 10:07 | W.PULMPROG ---
Assessment and Plan Assessment and plan (1) NHL (non-Hodgkin's lymphoma): Status: Chronic (2) Neutropenic fever: Status: Acute (3) Ground glass opacity present on imaging of lung: Status: Acute (4) Acute respiratory failure with hypoxia: Status: Acute Assessment and plan: This is a 71 yo man with neutropenic fever and GGO on chest imaging. He is on cefepime and his prophylactic acyclovir. He has had 3 negative COVID tests and is at high risk of an opportunistic infection. His neutropenia and fevers have improved. His bronchoscopy BAL is not consistent with lymphoma progression nor infection. 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 Given the low suspicion of infection as revealed by the bronchoscopy, I would recommend treating the pneumonitis with higher dose steroids. I would still continue antibiotic for a full course (7 days). I have also called his oncologist Dr. Leong to coordinate a care plan for Semaj. Drug induced Pneumonitis - recommend prednisone taper as follows: - 60mg for 7 days, 50mg for 7 days, 40mg for 7 days, 30mg for 7 days, 20mg for 7 days, 10mg for 7 days, 5mg for 7 days - will need Bactrim ppx until on lower than 20mg prednisone - I will coordinate a care plan with his oncologist Hypoxic respiratory failure - continue supplemental O2 for sats >90% - he may need to be discharged on home oxygen General Date Of Service Date of service: 09/14/21 Time of Service: 08:30 Reason for Consult: Abnormal chest CT Subjective Note Note: Semaj tolerated the bronchoscopy yesterday very well. His BAL returned as being bland (macrophage/monocyte predominance). The gram stain is negative and preliminary testing has also returned negative thus far. He also had a third COVID test yesterday which again returned as negative. His neutrophil counts have now greatly improved and he is no longer having fevers. He is feeling stable. Still some SOB and cough but is at a stable oxygen level. Exam Const General: no acute distress Nutritional Appearance: well nourished [facility] Head: normocephalic Ears: external ears normal and no periauricular adenopathy General nose exam: nasal mucous membranes and turbinates normal Face and sinus: sinuses nontender Mouth: oropharynx normal and moist mucous membranes Teeth and gingiva: dentition normal Eyes General: appearance normal, both eyes and all related structures Pupils: PERRL Neck Neck: normal visual inspection and no lymphadenopathy Chest Chest: normal inspection of the chest Resp Effort & Inspection: normal respiratory effort Auscultation: clear to auscultation bilaterally, rales, no rhonchi and no wheezes Cardio Rate: regular rate Rhythm: regular rhythm Heart Sounds: S1 normal, S2 normal and no murmurs Pulses: radial pulses present bilaterally GI Inspection: normal to inspection Palpation: soft Skin General skin exam: no rashes or lesions noted Neuro General: patient alert, patient awake and patient oriented x3 Extrem General: no clubbing, cyanosis or edema Psych Mental Status: mental status grossly normal Affect: normal affect Attitude: cooperative Objective Last Vital Signs Temp 36.6 C 09/13/21 15:36 Pulse 91 H 09/13/21 15:36 Resp 19 09/13/21 15:36 BP 115/70 09/13/21 15:36 Pulse Ox 93 09/13/21 15:36 Laboratory Results - last 24 hr 09/12/21 09/12/21 09/12/21 13:05 14:42 14:42 WBC RBC Hgb Hct MCV MCH MCHC RDW Plt Count MPV Immature Gran % Neutrophils % Band Neutrophils % Lymphocytes % Atypical Lymphs % Monocytes % Eosinophils % Basophils % Myelocytes % Nucleated RBC % Absolute Neutrophils Absolute Lymphocytes Absolute Monocytes Absolute Eosinophils Absolute Basophils RBC Morphology Sodium Potassium Chloride Carbon Dioxide Anion Gap BUN Creatinine Estimated GFR/1.73 m2 Glucose Calcium Magnesium C-Reactive Protein Fluid Source Fluid Color Not Applicable Fluid Clarity Not Applicable Fluid WBC Not Applicable Fld Polynuclear WBCs % 4 Fluid Mononuclear Cell 44 Fluid Other Cells 52 COVID-19 Source SARS-CoV-2 (PCR) Cancelled Nasopharyn COVID-19 PCR Cancelled Influenza Type A (PCR) Influenza Type B (PCR) Urine Legionella Ag Negative RSV (PCR) Path Cons Comment See Comment Ref Test Perform Site Cancelled 09/13/21 09/14/21 09/14/21 18:45 07:00 07:00 WBC 3.49 L RBC 3.96 L Hgb 11.2 L Hct 34.9 L MCV 88.1 MCH 28.3 MCHC 32.1 RDW 16.4 H Plt Count 344 MPV 9.0 Immature Gran % See Differential Neutrophils % 50.0 Band Neutrophils % 7 Lymphocytes % 26.0 Atypical Lymphs % 10 Monocytes % 5.0 Eosinophils % 0.0 Basophils % 0.0 Myelocytes % 2 Nucleated RBC % 0 Absolute Neutrophils 1.99 Absolute Lymphocytes 1.26 Absolute Monocytes 0.17 Absolute Eosinophils 0.00 Absolute Basophils 0.00 RBC Morphology Normal Sodium 135 L Potassium 3.5 Chloride 102 Carbon Dioxide 26.8 Anion Gap 6.2 BUN 12 Creatinine 0.7 Estimated GFR/1.73 m2 >= 60.00 Glucose 106 Calcium 7.7 L Magnesium 1.8 C-Reactive Protein 3.10 H Fluid Source Fluid Color Fluid Clarity Fluid WBC Fld Polynuclear WBCs % Fluid Mononuclear Cell Fluid Other Cells COVID-19 Source Nasopharynx SARS-CoV-2 (PCR) Negative Nasopharyn COVID-19 PCR Influenza Type A (PCR) Negative Influenza Type B (PCR) Negative Urine Legionella Ag RSV (PCR) Negative Path Cons Comment Ref Test Perform Site Results Medications Medications: Active Medications Generic Name Dose Route Start Last Admin Trade Name Freq PRN Reason Stop Dose Admin Acetaminophen 650 mg 09/10/21 19:49 09/11/21 02:31 Acetaminophen 325 Mg Tab PO 650 mg Q4H PRN PRN Administration Acyclovir 400 mg 09/10/21 20:00 09/14/21 08:37 Acyclovir 400 Mg Tab PO 400 mg BID EVANGELISTA Administration Albuterol Sulfate 2 puff 09/11/21 08:53 Albuterol Hfa 8 Gm 60 Puff Inh IH Q4H PRN PRN Albuterol/Ipratropium 3 ml 09/12/21 13:29 Albuterol/Ipratropium 3 Ml Upd Vial UPD Q2H PRN PRN for SOB, wheezing, or cough Aspirin 81 mg 09/11/21 08:30 09/14/21 08:37 Aspirin 81 Mg Chew PO 81 mg DAILY EVANGELISTA Administration Atorvastatin Calcium 10 mg 09/10/21 20:00 09/13/21 20:31 Atorvastatin 10 Mg Tab PO 10 mg QPM EVANGELISTA Administration Device 1 each 09/11/21 09:00 Inhaler, Assist Device MC DIRECTED EVANGELISTA Dimethicone/Zinc Oxide 0 gm 09/10/21 19:45 Pavel Protect Cream 142 Gm Tube TP PRN PRN Enoxaparin Sodium 40 mg 09/13/21 08:30 09/14/21 08:36 Enoxaparin 40 Mg/0.4 Ml Syr SC 40 mg DAILY EVANGELISTA Administration Hydroxyzine HCl 25 mg 09/10/21 19:49 Hydroxyzine Hcl 25 Mg Tab PO QID PRN PRN Cefepime HCl 2 gm/ Sodium 100 mls @ 200 mls/hr 09/11/21 18:00 09/14/21 07:18 Chloride IVPB Infused Q8H EVANGELISTA Infusion IV Miscellaneous Supplies 1 each 09/10/21 16:15 Iv Access IV DIRECTED EVANGELISTA Prednisone 60 mg 09/14/21 08:30 09/14/21 08:37 Prednisone 20 Mg Tab PO 60 mg DAILY EVANGELISTA Administration Prochlorperazine Maleate 5 mg 09/10/21 19:49 Prochlorperazine 5 Mg Tab PO Q6H PRN PRN Psyllium Hydrophilic Mucilloid 1 each 09/13/21 20:00 09/14/21 08:37 Psyllium Pkt PO 1 each BID EVANGELISTA Administration Sodium Chloride 0 ml 09/10/21 16:09 09/13/21 17:14 Normal Saline Flush 10 Ml Syr IVP 30 ml PRN PRN Administration Zolpidem Tartrate 5 mg 09/10/21 19:49 Zolpidem 5 Mg Tab PO HS PRN MAY REPEAT X1 PRN Allergies No Known Allergies Allergy (Unverified 09/10/21 16:10) Labs Result Diagrams: 09/14/21 07:00 09/14/21 07:00 Labs: 09/10/21 18:30 Blood Blood Culture - Preliminary NO GROWTH 72 HOURS 09/10/21 16:22 Blood Blood Culture - Preliminary NO GROWTH 72 HOURS 09/12/21 14:42 Pleural Body Fluid Culture - Preliminary 09/12/21 14:42 Pleural Gram Stain - Final 09/10/21 19:55 Urine - Reflex from Ua Urine Culture - Final Staphylococcus Epidermidis 09/10/21 19:55 Nose MRSA Screen - Final Laboratory Tests Range/Units 09/10/21 09/10/21 09/10/21 16:22 16:22 16:22 WBC (4.4-10.8) 10^3/uL 1.95 L* RBC (4.36-5.78) 10^6/uL 4.32 L Hgb (13.5-17.5) g/dL 12.4 L Hct (40.0-50.0) % 36.9 L MCV (80-95) fL 85.4 MCH (27.0-33.0) pg 28.7 MCHC (32.0-36.0) % 33.6 RDW (11.8-14.1) % 15.8 H Plt Count (130-400) 10^3/uL 153 MPV (8.0-11.0) fL 9.8 Immature Gran % 0.0 Neutrophils % 54.0 Band Neutrophils % 2 Lymphocytes % 23.0 Atypical Lymphs % Monocytes % 20.0 Eosinophils % 0.5 Basophils % 1.0 Myelocytes % Nucleated RBC % % 0 Absolute Neutrophils (1.2-6.7) 10^3/uL 1.09 L Absolute Lymphocytes (1.2-3.4) 10^3/uL 0.45 L Absolute Monocytes (0.1-0.8) 10^3/uL 0.39 Absolute Eosinophils (0.0-0.7) 10^3/uL 0.01 Absolute Basophils (0.0-0.2) 10^3/uL 0.02 RBC Morphology See Below Polychromasia Anisocytosis 1+ Microcytosis 1+ Macrocytosis 2+ PT (9.3-11.0) sec INR (0.9-1.1) D-Dimer (<500) ng/mlFEU VBG Lactate (0.6-1.4) mmol/L 2.7 H* Sodium (136-145) mmol/L 134 L Potassium (3.5-5.1) mmol/L 3.5 Chloride (98-107) mmol/L 100 Carbon Dioxide (21.0-32.0) mmol/L 22.1 Anion Gap (3-11) mmol/L 11.9 H BUN (7-18) mg/dL 20 H Creatinine (0.70-1.30) mg/dL 0.8 Estimated GFR/1.73 m2 (mL/min/1.73m2) >= 60.00 Glucose (74-106) mg/dL 179 H Hemoglobin A1c (<5.7) % Calcium (8.5-10.1) mg/dL 8.5 Phosphorus (2.6-4.7) mg/dL Magnesium (1.8-2.4) mg/dL Ferritin (26-388) ng/mL Total Bilirubin (0.2-1.0) mg/dL 0.8 Conjugated Bilirubin (0.0-0.2) mg/dL AST (15-37) U/L 31 ALT (16-63) U/L 35 Alkaline Phosphatase (46-116) U/L 65 C-Reactive Protein (0.0-0.3) mg/dL NT-Pro-B Natriuret Pep (<300) pg/mL Total Protein (6.4-8.2) g/dL 5.9 L Albumin (3.4-5.0) g/dL 2.6 L Procalcitonin ng/mL Urine Color (Yellow) Urine Clarity (Clear) Urine pH (5-8) Ur Specific [place] (1.005-1.025) Urine Protein (Negative) mg/dL Urine Ketones (Negative) mg/dL Urine Blood (Negative) Urine Nitrite (Negative) Urine Bilirubin (Negative) Urine Urobilinogen (Up TO 0.2) EU/dL Ur Leukocyte Esterase (Negative) Urine RBC (0-2) HPF Urine WBC (0-5) HPF Ur Epithelial Cells (Negative) HPF Urine Crystals (Negative) HPF Urine Bacteria (Negative) HPF Urine Casts (Negative) LPF Urine Mucus (Negative) Ur Culture Indicated? Urine Glucose (Negative) mg/dL Fluid Source Fluid Color Fluid Clarity Fluid WBC Fld Polynuclear WBCs % % Fluid Mononuclear Cell % Fluid Other Cells % COVID-19 Source SARS-CoV-2 (PCR) (Negative) Nasopharyn COVID-19 PCR Influenza Type A (PCR) (Negative) Influenza Type B (PCR) (Negative) Urine Legionella Ag (Negative) RSV (PCR) (Negative) Path Cons Comment Add-On Test Request Miscellaneous Test Ref Test Perform Site Range/Units 09/10/21 09/10/21 09/11/21 16:28 19:55 07:05 WBC (4.4-10.8) 10^3/uL RBC (4.36-5.78) 10^6/uL Hgb (13.5-17.5) g/dL Hct (40.0-50.0) % MCV (80-95) fL MCH (27.0-33.0) pg MCHC (32.0-36.0) % RDW (11.8-14.1) % Plt Count (130-400) 10^3/uL MPV (8.0-11.0) fL Immature Gran % Neutrophils % Band Neutrophils % Lymphocytes % Atypical Lymphs % Monocytes % Eosinophils % Basophils % Myelocytes % Nucleated RBC % % Absolute Neutrophils (1.2-6.7) 10^3/uL Absolute Lymphocytes (1.2-3.4) 10^3/uL Absolute Monocytes (0.1-0.8) 10^3/uL Absolute Eosinophils (0.0-0.7) 10^3/uL Absolute Basophils (0.0-0.2) 10^3/uL RBC Morphology Polychromasia Anisocytosis Microcytosis Macrocytosis PT (9.3-11.0) sec INR (0.9-1.1) D-Dimer (<500) ng/mlFEU VBG Lactate (0.6-1.4) mmol/L 1.2 Sodium (136-145) mmol/L Potassium (3.5-5.1) mmol/L Chloride (98-107) mmol/L Carbon Dioxide (21.0-32.0) mmol/L Anion Gap (3-11) mmol/L BUN (7-18) mg/dL Creatinine (0.70-1.30) mg/dL Estimated GFR/1.73 m2 (mL/min/1.73m2) Glucose (74-106) mg/dL Hemoglobin A1c (<5.7) % Calcium (8.5-10.1) mg/dL Phosphorus (2.6-4.7) mg/dL Magnesium (1.8-2.4) mg/dL Ferritin (26-388) ng/mL Total Bilirubin (0.2-1.0) mg/dL Conjugated Bilirubin (0.0-0.2) mg/dL AST (15-37) U/L ALT (16-63) U/L Alkaline Phosphatase (46-116) U/L C-Reactive Protein (0.0-0.3) mg/dL NT-Pro-B Natriuret Pep (<300) pg/mL Total Protein (6.4-8.2) g/dL Albumin (3.4-5.0) g/dL Procalcitonin ng/mL Urine Color (Yellow) Yellow Urine Clarity (Clear) Clear Urine pH (5-8) 6.0 Ur Specific [place] (1.005-1.025) >= 1.030 H Urine Protein (Negative) mg/dL 30 H Urine Ketones (Negative) mg/dL Negative Urine Blood (Negative) Negative Urine Nitrite (Negative) Positive H Urine Bilirubin (Negative) Negative Urine Urobilinogen (Up TO 0.2) EU/dL 1.0 H Ur Leukocyte Esterase (Negative) Negative Urine RBC (0-2) HPF 0-2 Urine WBC (0-5) HPF 3-5 Ur Epithelial Cells (Negative) HPF Few Urine Crystals (Negative) HPF Few Calcium Oxalate Urine Bacteria (Negative) HPF Moderate Urine Casts (Negative) LPF Negative Urine Mucus (Negative) Moderate Ur Culture Indicated? Yes Urine Glucose (Negative) mg/dL 100 Fluid Source Fluid Color Fluid Clarity Fluid WBC Fld Polynuclear WBCs % % Fluid Mononuclear Cell % Fluid Other Cells % COVID-19 Source Nasal/Nares SARS-CoV-2 (PCR) (Negative) Negative Nasopharyn COVID-19 PCR Influenza Type A (PCR) (Negative) Influenza Type B (PCR) (Negative) Urine Legionella Ag (Negative) RSV (PCR) (Negative) Path Cons Comment Add-On Test Request Miscellaneous Test Ref Test Perform Site Range/Units 09/11/21 09/11/21 09/11/21 07:05 08:58 09:40 WBC (4.4-10.8) 10^3/uL 1.68 L* RBC (4.36-5.78) 10^6/uL 3.87 L Hgb (13.5-17.5) g/dL 11.2 L Hct (40.0-50.0) % 34.3 L MCV (80-95) fL 88.6 D MCH (27.0-33.0) pg 28.9 MCHC (32.0-36.0) % 32.7 RDW (11.8-14.1) % 15.9 H Plt Count (130-400) 10^3/uL 146 MPV (8.0-11.0) fL 9.5 Immature Gran % 0.0 Neutrophils % 48.0 Band Neutrophils % 1 Lymphocytes % 14.0 Atypical Lymphs % 26 Monocytes % 9.0 Eosinophils % 2.0 Basophils % 0.0 Myelocytes % Nucleated RBC % % 0 Absolute Neutrophils (1.2-6.7) 10^3/uL 0.82 L Absolute Lymphocytes (1.2-3.4) 10^3/uL 0.67 L Absolute Monocytes (0.1-0.8) 10^3/uL 0.15 Absolute Eosinophils (0.0-0.7) 10^3/uL 0.03 Absolute Basophils (0.0-0.2) 10^3/uL 0.00 RBC Morphology See Below Polychromasia Present Anisocytosis Microcytosis Macrocytosis PT (9.3-11.0) sec INR (0.9-1.1) D-Dimer (<500) ng/mlFEU VBG Lactate (0.6-1.4) mmol/L Sodium (136-145) mmol/L 135 L Potassium (3.5-5.1) mmol/L 3.3 L Chloride (98-107) mmol/L 99 Carbon Dioxide (21.0-32.0) mmol/L 25.0 Anion Gap (3-11) mmol/L 11.0 BUN (7-18) mg/dL 14 D Creatinine (0.70-1.30) mg/dL 0.9 Estimated GFR/1.73 m2 (mL/min/1.73m2) >= 60.00 Glucose (74-106) mg/dL 194 H Hemoglobin A1c (<5.7) % Calcium (8.5-10.1) mg/dL 8.1 L Phosphorus (2.6-4.7) mg/dL 3.1 Magnesium (1.8-2.4) mg/dL 1.7 L Ferritin (26-388) ng/mL 882 H Total Bilirubin (0.2-1.0) mg/dL Conjugated Bilirubin (0.0-0.2) mg/dL AST (15-37) U/L ALT (16-63) U/L Alkaline Phosphatase (46-116) U/L C-Reactive Protein (0.0-0.3) mg/dL 7.65 H NT-Pro-B Natriuret Pep (<300) pg/mL 347 H Total Protein (6.4-8.2) g/dL Albumin (3.4-5.0) g/dL Procalcitonin ng/mL Urine Color (Yellow) Urine Clarity (Clear) Urine pH (5-8) Ur Specific [place] (1.005-1.025) Urine Protein (Negative) mg/dL Urine Ketones (Negative) mg/dL Urine Blood (Negative) Urine Nitrite (Negative) Urine Bilirubin (Negative) Urine Urobilinogen (Up TO 0.2) EU/dL Ur Leukocyte Esterase (Negative) Urine RBC (0-2) HPF Urine WBC (0-5) HPF Ur Epithelial Cells (Negative) HPF Urine Crystals (Negative) HPF Urine Bacteria (Negative) HPF Urine Casts (Negative) LPF Urine Mucus (Negative) Ur Culture Indicated? Urine Glucose (Negative) mg/dL Fluid Source Fluid Color Fluid Clarity Fluid WBC Fld Polynuclear WBCs % % Fluid Mononuclear Cell % Fluid Other Cells % COVID-19 Source Nasal/Nares SARS-CoV-2 (PCR) (Negative) Negative Nasopharyn COVID-19 PCR Influenza Type A (PCR) (Negative) Influenza Type B (PCR) (Negative) Urine Legionella Ag (Negative) RSV (PCR) (Negative) Path Cons Comment Add-On Test Request Miscellaneous Test Ref Test Perform Site Range/Units 09/11/21 09/11/21 09/11/21 09:40 09:40 09:40 WBC (4.4-10.8) 10^3/uL 2.75 L D RBC (4.36-5.78) 10^6/uL 4.33 L Hgb (13.5-17.5) g/dL 12.5 L Hct (40.0-50.0) % 38.0 L MCV (80-95) fL 87.8 MCH (27.0-33.0) pg 28.9 MCHC (32.0-36.0) % 32.9 RDW (11.8-14.1) % 16.0 H Plt Count (130-400) 10^3/uL 210 MPV (8.0-11.0) fL 9.5 Immature Gran % See Differential Neutrophils % 23.0 Band Neutrophils % Lymphocytes % 42.0 Atypical Lymphs % 17 Monocytes % 12.0 Eosinophils % 4.0 Basophils % 2.0 Myelocytes % Nucleated RBC % % 0 Absolute Neutrophils (1.2-6.7) 10^3/uL 0.63 L Absolute Lymphocytes (1.2-3.4) 10^3/uL 1.62 Absolute Monocytes (0.1-0.8) 10^3/uL 0.33 Absolute Eosinophils (0.0-0.7) 10^3/uL 0.11 Absolute Basophils (0.0-0.2) 10^3/uL 0.06 RBC Morphology See Below Polychromasia Present Anisocytosis Microcytosis Macrocytosis PT (9.3-11.0) sec INR (0.9-1.1) D-Dimer (<500) ng/mlFEU VBG Lactate (0.6-1.4) mmol/L Sodium (136-145) mmol/L Potassium (3.5-5.1) mmol/L Chloride (98-107) mmol/L Carbon Dioxide (21.0-32.0) mmol/L Anion Gap (3-11) mmol/L BUN (7-18) mg/dL Creatinine (0.70-1.30) mg/dL Estimated GFR/1.73 m2 (mL/min/1.73m2) Glucose (74-106) mg/dL Hemoglobin A1c (<5.7) % Calcium (8.5-10.1) mg/dL Phosphorus (2.6-4.7) mg/dL Cancelled Magnesium (1.8-2.4) mg/dL Ferritin (26-388) ng/mL Total Bilirubin (0.2-1.0) mg/dL Conjugated Bilirubin (0.0-0.2) mg/dL AST (15-37) U/L ALT (16-63) U/L Alkaline Phosphatase (46-116) U/L C-Reactive Protein (0.0-0.3) mg/dL NT-Pro-B Natriuret Pep (<300) pg/mL Total Protein (6.4-8.2) g/dL Albumin (3.4-5.0) g/dL Procalcitonin ng/mL 0.1 Urine Color (Yellow) Urine Clarity (Clear) Urine pH (5-8) Ur Specific [place] (1.005-1.025) Urine Protein (Negative) mg/dL Urine Ketones (Negative) mg/dL Urine Blood (Negative) Urine Nitrite (Negative) Urine Bilirubin (Negative) Urine Urobilinogen (Up TO 0.2) EU/dL Ur Leukocyte Esterase (Negative) Urine RBC (0-2) HPF Urine WBC (0-5) HPF Ur Epithelial Cells (Negative) HPF Urine Crystals (Negative) HPF Urine Bacteria (Negative) HPF Urine Casts (Negative) LPF Urine Mucus (Negative) Ur Culture Indicated? Urine Glucose (Negative) mg/dL Fluid Source Fluid Color Fluid Clarity Fluid WBC Fld Polynuclear WBCs % % Fluid Mononuclear Cell % Fluid Other Cells % COVID-19 Source SARS-CoV-2 (PCR) (Negative) Nasopharyn COVID-19 PCR Influenza Type A (PCR) (Negative) Influenza Type B (PCR) (Negative) Urine Legionella Ag (Negative) RSV (PCR) (Negative) Path Cons Comment Add-On Test Request Miscellaneous Test Ref Test Perform Site Range/Units 09/11/21 09/11/21 09/12/21 09:40 Unknown 06:30 WBC (4.4-10.8) 10^3/uL RBC (4.36-5.78) 10^6/uL Hgb (13.5-17.5) g/dL Hct (40.0-50.0) % MCV (80-95) fL MCH (27.0-33.0) pg MCHC (32.0-36.0) % RDW (11.8-14.1) % Plt Count (130-400) 10^3/uL MPV (8.0-11.0) fL Immature Gran % Neutrophils % Band Neutrophils % Lymphocytes % Atypical Lymphs % Monocytes % Eosinophils % Basophils % Myelocytes % Nucleated RBC % % Absolute Neutrophils (1.2-6.7) 10^3/uL Absolute Lymphocytes (1.2-3.4) 10^3/uL Absolute Monocytes (0.1-0.8) 10^3/uL Absolute Eosinophils (0.0-0.7) 10^3/uL Absolute Basophils (0.0-0.2) 10^3/uL RBC Morphology Polychromasia Anisocytosis Microcytosis Macrocytosis PT (9.3-11.0) sec 10.4 INR (0.9-1.1) 1.0 D-Dimer (<500) ng/mlFEU 2339 H VBG Lactate (0.6-1.4) mmol/L Sodium (136-145) mmol/L 136 Potassium (3.5-5.1) mmol/L 3.6 Chloride (98-107) mmol/L 103 Carbon Dioxide (21.0-32.0) mmol/L 26.0 Anion Gap (3-11) mmol/L 7.0 BUN (7-18) mg/dL 13 Creatinine (0.70-1.30) mg/dL 0.6 L D Estimated GFR/1.73 m2 (mL/min/1.73m2) >= 60.00 Glucose (74-106) mg/dL 125 H Hemoglobin A1c (<5.7) % Calcium (8.5-10.1) mg/dL 7.9 L Phosphorus (2.6-4.7) mg/dL 3.5 Magnesium (1.8-2.4) mg/dL 2.2 Ferritin (26-388) ng/mL Total Bilirubin (0.2-1.0) mg/dL 0.7 Conjugated Bilirubin (0.0-0.2) mg/dL 0.2 AST (15-37) U/L 28 ALT (16-63) U/L 31 Alkaline Phosphatase (46-116) U/L 52 C-Reactive Protein (0.0-0.3) mg/dL NT-Pro-B Natriuret Pep (<300) pg/mL Total Protein (6.4-8.2) g/dL 5.0 L Albumin (3.4-5.0) g/dL 2.1 L Procalcitonin ng/mL Urine Color (Yellow) Urine Clarity (Clear) Urine pH (5-8) Ur Specific [place] (1.005-1.025) Urine Protein (Negative) mg/dL Urine Ketones (Negative) mg/dL Urine Blood (Negative) Urine Nitrite (Negative) Urine Bilirubin (Negative) Urine Urobilinogen (Up TO 0.2) EU/dL Ur Leukocyte Esterase (Negative) Urine RBC (0-2) HPF Urine WBC (0-5) HPF Ur Epithelial Cells (Negative) HPF Urine Crystals (Negative) HPF Urine Bacteria (Negative) HPF Urine Casts (Negative) LPF Urine Mucus (Negative) Ur Culture Indicated? Urine Glucose (Negative) mg/dL Fluid Source Fluid Color Fluid Clarity Fluid WBC Fld Polynuclear WBCs % % Fluid Mononuclear Cell % Fluid Other Cells % COVID-19 Source SARS-CoV-2 (PCR) (Negative) Nasopharyn COVID-19 PCR Influenza Type A (PCR) (Negative) Influenza Type B (PCR) (Negative) Urine Legionella Ag (Negative) RSV (PCR) (Negative) Path Cons Comment Add-On Test Request TNP Miscellaneous Test Ref Test Perform Site Range/Units 09/12/21 09/12/21 09/12/21 06:30 06:30 13:05 WBC (4.4-10.8) 10^3/uL 1.98 L* RBC (4.36-5.78) 10^6/uL 3.81 L Hgb (13.5-17.5) g/dL 10.9 L Hct (40.0-50.0) % 33.2 L MCV (80-95) fL 87.1 MCH (27.0-33.0) pg 28.6 MCHC (32.0-36.0) % 32.8 RDW (11.8-14.1) % 15.8 H Plt Count (130-400) 10^3/uL 229 MPV (8.0-11.0) fL 9.8 Immature Gran % 0.0 Neutrophils % 51.0 Band Neutrophils % 6 Lymphocytes % 17.0 Atypical Lymphs % 15 Monocytes % 10.0 Eosinophils % 0.0 Basophils % 1.0 Myelocytes % Nucleated RBC % % 0 Absolute Neutrophils (1.2-6.7) 10^3/uL 1.13 L Absolute Lymphocytes (1.2-3.4) 10^3/uL 0.63 L Absolute Monocytes (0.1-0.8) 10^3/uL 0.20 Absolute Eosinophils (0.0-0.7) 10^3/uL 0.00 Absolute Basophils (0.0-0.2) 10^3/uL 0.02 RBC Morphology Normal Polychromasia Anisocytosis Microcytosis Macrocytosis PT (9.3-11.0) sec INR (0.9-1.1) D-Dimer (<500) ng/mlFEU VBG Lactate (0.6-1.4) mmol/L Sodium (136-145) mmol/L Potassium (3.5-5.1) mmol/L Chloride (98-107) mmol/L Carbon Dioxide (21.0-32.0) mmol/L Anion Gap (3-11) mmol/L BUN (7-18) mg/dL Creatinine (0.70-1.30) mg/dL Estimated GFR/1.73 m2 (mL/min/1.73m2) Glucose (74-106) mg/dL Hemoglobin A1c (<5.7) % 7.0 H Calcium (8.5-10.1) mg/dL Phosphorus (2.6-4.7) mg/dL Magnesium (1.8-2.4) mg/dL Ferritin (26-388) ng/mL Total Bilirubin (0.2-1.0) mg/dL Conjugated Bilirubin (0.0-0.2) mg/dL AST (15-37) U/L ALT (16-63) U/L Alkaline Phosphatase (46-116) U/L C-Reactive Protein (0.0-0.3) mg/dL NT-Pro-B Natriuret Pep (<300) pg/mL Total Protein (6.4-8.2) g/dL Albumin (3.4-5.0) g/dL Procalcitonin ng/mL Urine Color (Yellow) Urine Clarity (Clear) Urine pH (5-8) Ur Specific [place] (1.005-1.025) Urine Protein (Negative) mg/dL Urine Ketones (Negative) mg/dL Urine Blood (Negative) Urine Nitrite (Negative) Urine Bilirubin (Negative) Urine Urobilinogen (Up TO 0.2) EU/dL Ur Leukocyte Esterase (Negative) Urine RBC (0-2) HPF Urine WBC (0-5) HPF Ur Epithelial Cells (Negative) HPF Urine Crystals (Negative) HPF Urine Bacteria (Negative) HPF Urine Casts (Negative) LPF Urine Mucus (Negative) Ur Culture Indicated? Urine Glucose (Negative) mg/dL Fluid Source Fluid Color Fluid Clarity Fluid WBC Fld Polynuclear WBCs % % Fluid Mononuclear Cell % Fluid Other Cells % COVID-19 Source SARS-CoV-2 (PCR) (Negative) Nasopharyn COVID-19 PCR Influenza Type A (PCR) (Negative) Influenza Type B (PCR) (Negative) Urine Legionella Ag (Negative) Negative RSV (PCR) (Negative) Path Cons Comment Add-On Test Request Miscellaneous Test Ref Test Perform Site Range/Units 09/12/21 09/12/21 09/12/21 14:42 14:42 14:42 WBC (4.4-10.8) 10^3/uL RBC (4.36-5.78) 10^6/uL Hgb (13.5-17.5) g/dL Hct (40.0-50.0) % MCV (80-95) fL MCH (27.0-33.0) pg MCHC (32.0-36.0) % RDW (11.8-14.1) % Plt Count (130-400) 10^3/uL MPV (8.0-11.0) fL Immature Gran % Neutrophils % Band Neutrophils % Lymphocytes % Atypical Lymphs % Monocytes % Eosinophils % Basophils % Myelocytes % Nucleated RBC % % Absolute Neutrophils (1.2-6.7) 10^3/uL Absolute Lymphocytes (1.2-3.4) 10^3/uL Absolute Monocytes (0.1-0.8) 10^3/uL Absolute Eosinophils (0.0-0.7) 10^3/uL Absolute Basophils (0.0-0.2) 10^3/uL RBC Morphology Polychromasia Anisocytosis Microcytosis Macrocytosis PT (9.3-11.0) sec INR (0.9-1.1) D-Dimer (<500) ng/mlFEU VBG Lactate (0.6-1.4) mmol/L Sodium (136-145) mmol/L Potassium (3.5-5.1) mmol/L Chloride (98-107) mmol/L Carbon Dioxide (21.0-32.0) mmol/L Anion Gap (3-11) mmol/L BUN (7-18) mg/dL Creatinine (0.70-1.30) mg/dL Estimated GFR/1.73 m2 (mL/min/1.73m2) Glucose (74-106) mg/dL Hemoglobin A1c (<5.7) % Calcium (8.5-10.1) mg/dL Phosphorus (2.6-4.7) mg/dL Magnesium (1.8-2.4) mg/dL Ferritin (26-388) ng/mL Total Bilirubin (0.2-1.0) mg/dL Conjugated Bilirubin (0.0-0.2) mg/dL AST (15-37) U/L ALT (16-63) U/L Alkaline Phosphatase (46-116) U/L C-Reactive Protein (0.0-0.3) mg/dL NT-Pro-B Natriuret Pep (<300) pg/mL Total Protein (6.4-8.2) g/dL Albumin (3.4-5.0) g/dL Procalcitonin ng/mL Urine Color (Yellow) Urine Clarity (Clear) Urine pH (5-8) Ur Specific [place] (1.005-1.025) Urine Protein (Negative) mg/dL Urine Ketones (Negative) mg/dL Urine Blood (Negative) Urine Nitrite (Negative) Urine Bilirubin (Negative) Urine Urobilinogen (Up TO 0.2) EU/dL Ur Leukocyte Esterase (Negative) Urine RBC (0-2) HPF Urine WBC (0-5) HPF Ur Epithelial Cells (Negative) HPF Urine Crystals (Negative) HPF Urine Bacteria (Negative) HPF Urine Casts (Negative) LPF Urine Mucus (Negative) Ur Culture Indicated? Urine Glucose (Negative) mg/dL Fluid Source Fluid Color Not Applicable Fluid Clarity Not Applicable Fluid WBC Not Applicable Fld Polynuclear WBCs % % 4 Fluid Mononuclear Cell % 44 Fluid Other Cells % 52 COVID-19 Source SARS-CoV-2 (PCR) (Negative) Cancelled Nasopharyn COVID-19 PCR Cancelled Influenza Type A (PCR) (Negative) Influenza Type B (PCR) (Negative) Urine Legionella Ag (Negative) RSV (PCR) (Negative) Path Cons Comment See Comment Add-On Test Request Miscellaneous Test Cancelled Ref Test Perform Site Cancelled Range/Units 09/13/21 09/13/21 09/13/21 06:20 06:20 18:45 WBC (4.4-10.8) 10^3/uL 3.17 L D RBC (4.36-5.78) 10^6/uL 4.25 L Hgb (13.5-17.5) g/dL 12.0 L Hct (40.0-50.0) % 37.6 L MCV (80-95) fL 88.5 MCH (27.0-33.0) pg 28.2 MCHC (32.0-36.0) % 31.9 L RDW (11.8-14.1) % 16.4 H Plt Count (130-400) 10^3/uL 378 D MPV (8.0-11.0) fL 9.2 Immature Gran % 0.0 Neutrophils % 49.0 Band Neutrophils % Lymphocytes % 37.0 Atypical Lymphs % Monocytes % 14.0 Eosinophils % 0.0 Basophils % 0.0 Myelocytes % Nucleated RBC % % 0 Absolute Neutrophils (1.2-6.7) 10^3/uL 1.55 Absolute Lymphocytes (1.2-3.4) 10^3/uL 1.17 L Absolute Monocytes (0.1-0.8) 10^3/uL 0.44 Absolute Eosinophils (0.0-0.7) 10^3/uL 0.00 Absolute Basophils (0.0-0.2) 10^3/uL 0.00 RBC Morphology Normal Polychromasia Anisocytosis Microcytosis Macrocytosis PT (9.3-11.0) sec INR (0.9-1.1) D-Dimer (<500) ng/mlFEU VBG Lactate (0.6-1.4) mmol/L Sodium (136-145) mmol/L 134 L Potassium (3.5-5.1) mmol/L 3.5 Chloride (98-107) mmol/L 100 Carbon Dioxide (21.0-32.0) mmol/L 23.0 Anion Gap (3-11) mmol/L 11.0 BUN (7-18) mg/dL 13 Creatinine (0.70-1.30) mg/dL 0.7 Estimated GFR/1.73 m2 (mL/min/1.73m2) >= 60.00 Glucose (74-106) mg/dL 109 H Hemoglobin A1c (<5.7) % Calcium (8.5-10.1) mg/dL 8.0 L Phosphorus (2.6-4.7) mg/dL Magnesium (1.8-2.4) mg/dL 1.8 Ferritin (26-388) ng/mL Total Bilirubin (0.2-1.0) mg/dL Conjugated Bilirubin (0.0-0.2) mg/dL AST (15-37) U/L ALT (16-63) U/L Alkaline Phosphatase (46-116) U/L C-Reactive Protein (0.0-0.3) mg/dL 5.06 H NT-Pro-B Natriuret Pep (<300) pg/mL Total Protein (6.4-8.2) g/dL Albumin (3.4-5.0) g/dL Procalcitonin ng/mL Urine Color (Yellow) Urine Clarity (Clear) Urine pH (5-8) Ur Specific [place] (1.005-1.025) Urine Protein (Negative) mg/dL Urine Ketones (Negative) mg/dL Urine Blood (Negative) Urine Nitrite (Negative) Urine Bilirubin (Negative) Urine Urobilinogen (Up TO 0.2) EU/dL Ur Leukocyte Esterase (Negative) Urine RBC (0-2) HPF Urine WBC (0-5) HPF Ur Epithelial Cells (Negative) HPF Urine Crystals (Negative) HPF Urine Bacteria (Negative) HPF Urine Casts (Negative) LPF Urine Mucus (Negative) Ur Culture Indicated? Urine Glucose (Negative) mg/dL Fluid Source Fluid Color Fluid Clarity Fluid WBC Fld Polynuclear WBCs % % Fluid Mononuclear Cell % Fluid Other Cells % COVID-19 Source Nasopharynx SARS-CoV-2 (PCR) (Negative) Negative Nasopharyn COVID-19 PCR Influenza Type A (PCR) (Negative) Negative Influenza Type B (PCR) (Negative) Negative Urine Legionella Ag (Negative) RSV (PCR) (Negative) Negative Path Cons Comment Add-On Test Request Miscellaneous Test Ref Test Perform Site Range/Units 09/14/21 09/14/21 07:00 07:00 WBC (4.4-10.8) 10^3/uL 3.49 L RBC (4.36-5.78) 10^6/uL 3.96 L Hgb (13.5-17.5) g/dL 11.2 L Hct (40.0-50.0) % 34.9 L MCV (80-95) fL 88.1 MCH (27.0-33.0) pg 28.3 MCHC (32.0-36.0) % 32.1 RDW (11.8-14.1) % 16.4 H Plt Count (130-400) 10^3/uL 344 MPV (8.0-11.0) fL 9.0 Immature Gran % See Differential Neutrophils % 50.0 Band Neutrophils % 7 Lymphocytes % 26.0 Atypical Lymphs % 10 Monocytes % 5.0 Eosinophils % 0.0 Basophils % 0.0 Myelocytes % 2 Nucleated RBC % % 0 Absolute Neutrophils (1.2-6.7) 10^3/uL 1.99 Absolute Lymphocytes (1.2-3.4) 10^3/uL 1.26 Absolute Monocytes (0.1-0.8) 10^3/uL 0.17 Absolute Eosinophils (0.0-0.7) 10^3/uL 0.00 Absolute Basophils (0.0-0.2) 10^3/uL 0.00 RBC Morphology Normal Polychromasia Anisocytosis Microcytosis Macrocytosis PT (9.3-11.0) sec INR (0.9-1.1) D-Dimer (<500) ng/mlFEU VBG Lactate (0.6-1.4) mmol/L Sodium (136-145) mmol/L 135 L Potassium (3.5-5.1) mmol/L 3.5 Chloride (98-107) mmol/L 102 Carbon Dioxide (21.0-32.0) mmol/L 26.8 Anion Gap (3-11) mmol/L 6.2 BUN (7-18) mg/dL 12 Creatinine (0.70-1.30) mg/dL 0.7 Estimated GFR/1.73 m2 (mL/min/1.73m2) >= 60.00 Glucose (74-106) mg/dL 106 Hemoglobin A1c (<5.7) % Calcium (8.5-10.1) mg/dL 7.7 L Phosphorus (2.6-4.7) mg/dL Magnesium (1.8-2.4) mg/dL 1.8 Ferritin (26-388) ng/mL Total Bilirubin (0.2-1.0) mg/dL Conjugated Bilirubin (0.0-0.2) mg/dL AST (15-37) U/L ALT (16-63) U/L Alkaline Phosphatase (46-116) U/L C-Reactive Protein (0.0-0.3) mg/dL 3.10 H NT-Pro-B Natriuret Pep (<300) pg/mL Total Protein (6.4-8.2) g/dL Albumin (3.4-5.0) g/dL Procalcitonin ng/mL Urine Color (Yellow) Urine Clarity (Clear) Urine pH (5-8) Ur Specific [place] (1.005-1.025) Urine Protein (Negative) mg/dL Urine Ketones (Negative) mg/dL Urine Blood (Negative) Urine Nitrite (Negative) Urine Bilirubin (Negative) Urine Urobilinogen (Up TO 0.2) EU/dL Ur Leukocyte Esterase (Negative) Urine RBC (0-2) HPF Urine WBC (0-5) HPF Ur Epithelial Cells (Negative) HPF Urine Crystals (Negative) HPF Urine Bacteria (Negative) HPF Urine Casts (Negative) LPF Urine Mucus (Negative) Ur Culture Indicated? Urine Glucose (Negative) mg/dL Fluid Source Fluid Color Fluid Clarity Fluid WBC Fld Polynuclear WBCs % % Fluid Mononuclear Cell % Fluid Other Cells % COVID-19 Source SARS-CoV-2 (PCR) (Negative) Nasopharyn COVID-19 PCR Influenza Type A (PCR) (Negative) Influenza Type B (PCR) (Negative) Urine Legionella Ag (Negative) RSV (PCR) (Negative) Path Cons Comment Add-On Test Request Miscellaneous Test Ref Test Perform Site
[2021-09-14] MEDS: Normal Saline Flush 10 ML SYR IVP (10:36)
--- NOTE | 2021-09-14 14:06 | W.NUTRFU ---
Date of service: 09/14/21 Time of Service: 14:06 Nutrition Note NOTE: Mr. Tong has excellent PO intake. Weight is stable. BMI is 22.1 kg/m2 which is WNL. No nutritional issues noted at this time. Time Spent in Nutritional Counseling and Treatment: 0
--- NOTE | 2021-09-14 14:38 | CHAPLAIN ---
Semaj was up in his chair reading when I visited. He was admitted 5 days ago after having a fever. He was diagnosed about two months ago with non-hodgkins lymphoma. I introduced myself, explained my role and offered support. Semaj told me he's been dealing with a treatment side effect of a very dry mouth, which he believes is caused by his meds. He asked for two glasses of cranberry juice and was happy when I was able to get those for him. He did not seem interested in further conversation. I let him know that mopper is available 24/03. I'll check in with him next week if he's still here.
[2021-09-14 15:14] LABS: Fungitell Qualitative Positive (Negative); Fungitell Quantitative Value >500 pg/mL (<60 pg/mL)
[2021-09-14 16:40] VITALS: BP 127/81; PULSE 98; RESP 18; TEMP 36.5; O2SAT 96
--- NOTE | 2021-09-14 18:35 | W.PM.PROGNOT ---
Date of Service Date of service: 09/14/21 Time of Service: 15:30 Assessment and Plan Assessment and plan (1) Acute respiratory failure with hypoxia: Status: Acute Assessment and plan: S/p bronchoscopy on 09/12/21. Some of the BAL studies Await BAL results are still pending. COVID negative - d/c airborne precautions. Cytology from bronchoscopy: no malignant cells identified. Silver stain negative for organisms. The highest on differential is a pneumonitis due to chemotherapy. Continue cefepime and prednisone 60 mg.. Continue IS/acapella. (2) Ground glass opacity present on imaging of lung: Status: Acute Assessment and plan: As above (3) Neutropenic fever: Status: Acute Assessment and plan: In setting of chemotherapy/NHL. As above (4) NHL (non-Hodgkin's lymphoma): Status: Chronic Assessment and plan: On chemotherapy. Cytology from BAL: no malignant cells. We are not sure that there was enough material collected to be able to do flow cytometry. (5) DVT prophylaxis: Status: Acute Assessment and plan: SC lovenox (6) Discharge planning issues: Status: Acute Assessment and plan: Full code Continues to require hospitalization. May require O2 on discharge. Discussed with Dr Medrano. Subjective Subjective Patient reports: no new complaints and tolerating a regular diet Interval history since last seen: Mr Tong states that he feels about the same. No new complaints. No shortness of breath at rest. No dizziness, chest pain, nausea. Dr Medrano and the patient's oncologist feel that the patient's appearance on CT could be due to pneumonitis induced by chemotherapy (either vincristine or cyclophosphamide can do this). Dr Medrano's recommendations were to continue increased dose of prednisone and cefepime and re-assess O2 requirements on Friday. When I discussed with the patient that he might have to go home on oxygen, he became very upset, stating that it's a nuisance and that he might choose not to have it. We discussed that that may be detrimental to all of his organs and that, in fact, he could . He told me that starting a strenuous exercise program might help. I told him how, if he did that, he would probably need even more oxygen. We discussed that, if he really didn't want oxygen but required it, he could consider hospice. He was unhappy with this too. We discussed that his oncologist may have concerns about his decision not to wear oxygen if he needed it. We agreed that he didn't have to worry about this yet - that he could wait to see if he still needed the oxygen on Friday. Exam Narrative Exam Narrative: General: male, sitting up in a chair, A&Ox3, no dyspnea/tachypnea on 4L of O2 by NC; irritable HEENT: EOMI, MMM Heart: RRR, no m/r/g Lungs: CTAB Abdomen: soft, nontender, nondistended Extremities: no edema BLE's Objective Last Vital Signs Temp 36.5 C 09/14/21 16:40 Pulse 98 H 09/14/21 16:40 Resp 18 09/14/21 16:40 BP 127/81 09/14/21 16:40 Pulse Ox 96 09/14/21 16:40 Laboratory Results - last 24 hr 09/11/21 09/12/21 09/13/21 06:30 13:05 18:45 WBC RBC Hgb Hct MCV MCH MCHC RDW Plt Count MPV Immature Gran % Neutrophils % Band Neutrophils % Lymphocytes % Atypical Lymphs % Monocytes % Eosinophils % Basophils % Myelocytes % Nucleated RBC % Absolute Neutrophils Absolute Lymphocytes Absolute Monocytes Absolute Eosinophils Absolute Basophils RBC Morphology Sodium Potassium Chloride Carbon Dioxide Anion Gap BUN Creatinine Estimated GFR/1.73 m2 Glucose Calcium Magnesium C-Reactive Protein COVID-19 Source Nasopharynx SARS-CoV-2 (PCR) Negative Influenza Type A (PCR) Negative Influenza Type B (PCR) Negative Urine Legionella Ag Negative RSV (PCR) Negative B-(1,3)-D-Glucan Quant >500 A B-(1,3)-D-Glucan Qual Positive A 09/14/21 09/14/21 07:00 07:00 WBC 3.49 L RBC 3.96 L Hgb 11.2 L Hct 34.9 L MCV 88.1 MCH 28.3 MCHC 32.1 RDW 16.4 H Plt Count 344 MPV 9.0 Immature Gran % See Differential Neutrophils % 50.0 Band Neutrophils % 7 Lymphocytes % 26.0 Atypical Lymphs % 10 Monocytes % 5.0 Eosinophils % 0.0 Basophils % 0.0 Myelocytes % 2 Nucleated RBC % 0 Absolute Neutrophils 1.99 Absolute Lymphocytes 1.26 Absolute Monocytes 0.17 Absolute Eosinophils 0.00 Absolute Basophils 0.00 RBC Morphology Normal Sodium 135 L Potassium 3.5 Chloride 102 Carbon Dioxide 26.8 Anion Gap 6.2 BUN 12 Creatinine 0.7 Estimated GFR/1.73 m2 >= 60.00 Glucose 106 Calcium 7.7 L Magnesium 1.8 C-Reactive Protein 3.10 H COVID-19 Source SARS-CoV-2 (PCR) Influenza Type A (PCR) Influenza Type B (PCR) Urine Legionella Ag RSV (PCR) B-(1,3)-D-Glucan Quant B-(1,3)-D-Glucan Qual
[2021-09-14] MEDS: Atorvastatin 10 MG TAB PO (19:23)
[2021-09-14 21:19] LABS: Mycoplasma Pneumoniae PCR Negative; Specimen source BAL
[2021-09-15] VITALS (12 sets, daily range): BP systolic 114–130; BP diastolic 71–75; PULSE 86–99; RESP 17–24; TEMP 36.7–36.9; O2SAT 83–96
[2021-09-15] MEDS: CEFEPIME 2 GM in Normal Saline 100 ML IVPB ×3 (02:08→18:24)
[2021-09-15] MEDS: predniSONE 20 MG TAB 60 MG PO (08:01)
[2021-09-15] MEDS: Psyllium PKT 1 EACH PO ×2 (08:01→20:39)
[2021-09-15] MEDS: Acyclovir 400 MG TAB PO ×2 (08:01→20:39)
[2021-09-15] MEDS: Enoxaparin 40 MG/0.4 ML SYR SC (08:01)
[2021-09-15] MEDS: Pantoprazole 40 MG TABCR PO (08:01)
[2021-09-15] MEDS: Aspirin 81 MG CHEW PO (08:01)
[2021-09-15 09:39] LABS: Anion Gap 6.8 mmol/L (3-11); BUN 10 mg/dL (7-18); CO2 27.2 mmol/L (21.0-32.0); CREATININE 0.6 mg/dL (0.70-1.30); Calcium 8.1 mg/dL (8.5-10.1); Chloride 104 mmol/L (98-107); Glucose 98 mg/dL (74-106); Potassium 3.5 mmol/L (3.5-5.1); Sodium 138 mmol/L (136-145)
[2021-09-15] MEDS: Normal Saline Flush 10 ML SYR IVP ×2 (09:53→18:25)
--- NOTE | 2021-09-15 13:47 | W.PM.PROGNOT ---
Date of Service Date of service: 09/15/21 Time of Service: 13:47 Assessment and Plan Assessment and plan (1) Acute respiratory failure with hypoxia: Status: Acute Assessment and plan: S/p bronchoscopy on 09/12/21. Some BAL results are still pending. COVID negative - d/c airborne precautions. Cytology from bronchoscopy: no malignant cells identified. Silver stain negative for organisms. The highest on differential is a pneumonitis due to chemotherapy. Continue cefepime through Friday and prednisone taper. Continue IS/acapella. (2) Ground glass opacity present on imaging of lung: Status: Acute Assessment and plan: As above (3) Neutropenic fever: Status: Acute Assessment and plan: In setting of chemotherapy/NHL. Now afebrile and ANC has recovered. As above (4) NHL (non-Hodgkin's lymphoma): Status: Chronic Assessment and plan: On chemotherapy. Cytology from BAL: no malignant cells. We are not sure that there was enough material collected to be able to do flow cytometry. (5) DVT prophylaxis: Status: Acute Assessment and plan: SC lovenox (6) Discharge planning issues: Status: Acute Assessment and plan: Full code Now on RA with O2 sats of 93-95% at rest. Plan d/c on Friday or . Subjective Subjective Patient reports: feels better, tolerating a regular diet, bowel movement and afebrile; denies nausea, vomiting and shortness of breath Exam Narrative Exam Narrative: Sitting in chair my the windown with IS and acapella beside him. Const General: cooperative and no acute distress Nutritional Appearance: average body habitus Orientation: alert and oriented x3 Eyes General: appearance normal, both eyes and all related structures Sclera: sclerae normal Resp Effort & Inspection: normal respiratory effort Auscultation: rales bilaterally at the base Cardio Jugular venous pressure: no JVD Rate: regular rate Rhythm: regular rhythm Heart Sounds: S1 normal and S2 normal GI Palpation: soft and nontender Skin General skin exam: no rashes or lesions noted Extrem General: no pedal edema and no calf tenderness Psych Appearance: grossly normal Mental Status: mental status grossly normal Mood: congruent mood Affect: normal affect Objective Last Vital Signs Temp 36.7 C 09/15/21 07:53 Pulse 92 H 09/15/21 07:53 Resp 17 09/15/21 07:53 BP 117/72 01/15/22 07:53 Pulse Ox 93 09/15/21 11:40 Laboratory Results - last 24 hr 09/11/21 09/12/21 09/15/21 06:30 14:42 07:00 Sodium 138 Potassium 3.5 Chloride 104 Carbon Dioxide 27.2 Anion Gap 6.8 BUN 10 Creatinine 0.6 L Estimated GFR/1.73 m2 >= 60.00 Glucose 98 Calcium 8.1 L Magnesium 2.0 M. pneumoniae Source BAL M. pneumoniae (PCR) Negative B-(1,3)-D-Glucan Quant >500 A B-(1,3)-D-Glucan Qual Positive A
[2021-09-15] MEDS: Atorvastatin 10 MG TAB PO (20:35)
[2021-09-16] VITALS (8 sets, daily range): BP systolic 116–134; BP diastolic 66–79; PULSE 76–95; RESP 17–24; TEMP 36–36.4; O2SAT 92–95
[2021-09-16] MEDS: CEFEPIME 2 GM in Normal Saline 100 ML IVPB ×3 (02:04→17:47)
[2021-09-16] MEDS: Normal Saline Flush 10 ML SYR IVP ×3 (02:04→17:48)
[2021-09-16] MEDS: Psyllium PKT 1 EACH PO ×2 (08:29→21:24)
[2021-09-16] MEDS: Aspirin 81 MG CHEW PO (08:29)
[2021-09-16] MEDS: Enoxaparin 40 MG/0.4 ML SYR SC (08:29)
[2021-09-16] MEDS: predniSONE 20 MG TAB 60 MG PO (08:30)
[2021-09-16] MEDS: Pantoprazole 40 MG TABCR PO (08:30)
[2021-09-16] MEDS: Acyclovir 400 MG TAB PO ×2 (08:30→21:24)
[2021-09-16 10:55] LABS: HCT 36.4 % (40.0-50.0); HGB 11.7 g/dL (13.5-17.5); Immature Grans % 10.8; MCHC 32.1 % (32.0-36.0); MCV 90.3 fL (80-95); Nucleated RBC 0 %; Platelet Count 451 10^3/uL (130-400); RBC 4.03 10^6/uL (4.36-5.78); RDW 16.8 % (11.8-14.1); RDW-SD 53.8 fL; WBC 9.05 10^3/uL (4.4-10.8)
[2021-09-16 11:10] LABS: Absolute Lymphocyte Count 1.45 10^3/uL (1.2-3.4); Absolute Monocyte Count 1.18 10^3/uL (0.1-0.8); Absolute Neutrophil Count 6.43 10^3/uL (1.2-6.7); Bands % 8; Diff Comment Manual Differential
[2021-09-16 11:11] LABS: Anisocytosis 1+; Microcytosis 1+
--- NOTE | 2021-09-16 15:06 | W.PM.PROGNOT ---
Date of Service Date of service: 09/16/21 Time of Service: 15:06 Assessment and Plan Assessment and plan (1) Acute respiratory failure with hypoxia: Status: Acute Assessment and plan: S/p bronchoscopy on 09/12/21. Some BAL results are still pending. COVID negative - d/c airborne precautions. Cytology from bronchoscopy: no malignant cells identified. Silver stain negative for organisms. The highest on differential is a pneumonitis due to chemotherapy. Continue cefepime; tomorrow (friday) discuss stopping antibiotic and discharge to home after exercise oximetry. Continue IS/acapella. (2) Ground glass opacity present on imaging of lung: Status: Acute Assessment and plan: As above (3) Neutropenic fever: Status: Acute Assessment and plan: In setting of chemotherapy/NHL. Now afebrile and ANC has recovered. As above (4) NHL (non-Hodgkin's lymphoma): Status: Chronic Assessment and plan: On chemotherapy. Cytology from BAL: no malignant cells. We are not sure that there was enough material collected to be able to do flow cytometry. (5) DVT prophylaxis: Status: Acute Assessment and plan: SC lovenox (6) Discharge planning issues: Status: Acute Assessment and plan: Full code Now on RA with O2 sats of 93-95% at rest. Plan d/c on Friday or . Subjective Subjective Patient reports: no new complaints, tolerating a regular diet, bowel movement and afebrile; denies nausea and vomiting Interval history since last seen: Walked in the hallway multiple times yesterday. No SOA, but with first walk his O2 saturation decreased to 83, but with subsequent walks no desaturations. Exam Narrative Exam Narrative: Sitting in chair my the windown with IS and acapella beside him. Const General: cooperative and no acute distress Nutritional Appearance: average body habitus Orientation: alert and oriented x3 Eyes General: appearance normal, both eyes and all related structures Sclera: sclerae normal Resp Effort & Inspection: normal respiratory effort Auscultation: rales bilaterally at the base Cardio Jugular venous pressure: no JVD Rate: regular rate Rhythm: regular rhythm Heart Sounds: S1 normal and S2 normal GI Palpation: soft and nontender Skin General skin exam: no rashes or lesions noted Extrem General: no pedal edema and no calf tenderness Psych Appearance: grossly normal Mental Status: mental status grossly normal Mood: congruent mood Affect: normal affect Objective Last Vital Signs Temp 36.0 C L 09/16/21 07:45 Pulse 88 09/16/21 07:45 Resp 20 09/16/21 13:16 BP 116/66 09/16/21 07:45 Pulse Ox 94 09/16/21 13:16 Laboratory Results - last 24 hr 09/16/21 10:00 WBC 9.05 RBC 4.03 L Hgb 11.7 L Hct 36.4 L MCV 90.3 MCH 29.0 MCHC 32.1 RDW 16.8 H Plt Count 451 H MPV 9.0 Immature Gran % 10.8 Neutrophils % 63.0 Band Neutrophils % 8 Lymphocytes % 16.0 Monocytes % 13.0 Eosinophils % 0.0 Basophils % 0.0 Nucleated RBC % 0 Absolute Neutrophils 6.43 Absolute Lymphocytes 1.45 Absolute Monocytes 1.18 H Absolute Eosinophils 0.00 Absolute Basophils 0.00 RBC Morphology See Below Anisocytosis 1+ Microcytosis 1+
[2021-09-16] MEDS: Atorvastatin 10 MG TAB PO (21:24)
[2021-09-17] MEDS: CEFEPIME 2 GM in Normal Saline 100 ML IVPB (01:13)
[2021-09-17] MEDS: Normal Saline Flush 10 ML SYR IVP ×2 (01:14→12:58)
[2021-09-17 07:29] VITALS: BP 144/83; PULSE 109; RESP 18; TEMP 35.3; O2SAT 94
[2021-09-17] MEDS: predniSONE 20 MG TAB 60 MG PO (08:50)
[2021-09-17] MEDS: Acyclovir 400 MG TAB PO (08:50)
[2021-09-17] MEDS: Aspirin 81 MG CHEW PO (08:50)
[2021-09-17] MEDS: Enoxaparin 40 MG/0.4 ML SYR SC (08:50)
[2021-09-17] MEDS: Psyllium PKT 1 EACH PO (08:51)
[2021-09-17] MEDS: Pantoprazole 40 MG TABCR PO (08:51)
[2021-09-17 08:52] LABS: Streptococcus Pneumoniae Ag, U Negative (Negative)
--- NOTE | 2021-09-17 09:17 | PDOC.CMDIS ---
- If Service Date Differs Date of service: 09/17/21 Time of Service: 09:17 LACE Index Scoring Tool - Questions: Length of Stay (in days): 4 - 6 Acuity (Admit via E.D.?): Yes E.D. Visits: 2 - Answers: Total Score: 9 Risk of Readmission: Low Risk Care Management Discharge Reason for Hospitalization: Neutropenia with fever, Bronchopneumonia Discharge Plan: Semaj will discharge home with no new services anticipated at this time. He will follow up with his PCP, Oncologist and plan of care as prescribed and will transport via private vehicle with a friend. Patient/Family Education Needs: Review discharge instructions, discuss Ask Me Three.
[2021-09-17 09:43] LABS: Misc Referral (MAYO) See Comments
--- NOTE | 2021-09-17 09:49 | PGE_ITS ---
Assessment and Plan Assessment and plan (1) NHL (non-Hodgkin's lymphoma): Status: Chronic (2) Neutropenic fever: Status: Acute (3) Drug-induced pneumonitis: Status: Acute (4) Acute respiratory failure with hypoxia: Status: Acute Assessment and plan: This is a 71 yo man with neutropenic fever and GGO on chest imaging. He has received 7 days of antibiotics. He has had 3 negative COVID tests and is at high risk of an opportunistic infection. His neutropenia and fevers have resolved. His bronchoscopy BAL is not consistent with lymphoma progression nor infection. He still has serologies pending, but by the data I have thus far it seems most likely that this is a drug induced pneumonitis that could be related to his R-CHOP therapy (although relatively unusual). Given the low suspicion of infection as revealed by the bronchoscopy, I would recommend treating the pneumonitis with higher dose steroids. I have also called his oncologist Dr. Leong to coordinate a care plan for Semaj. Drug induced Pneumonitis - recommend prednisone taper as follows: - 60mg for 7 days, 50mg for 7 days, 40mg for 7 days, 30mg for 7 days, 20mg for 7 days, 10mg for 7 days, 5mg for 7 days - will need Bactrim ppx until on lower than 20mg prednisone - He will follow up with Dr. Leong and obtain a repeat chest CT prior to his next cycle. Hypoxic respiratory failure, improved - ambulatory pulse ox prior to discharge General Date Of Service Date of service: 09/17/21 Time of Service: 08:30 Reason for Consult: Abnormal chest CT Subjective Note Note: Semaj is doing well today. He is completely off of oxygen at this time after being started on high dose steroids Friday. His BAL studies continue to return negative. At this point only fungal stain and viral PCR's are pending. He is feeling well and open to going home today. I have discussed his case with his oncologist who is aware and will obtain a repeat chest CT prior to his next cycle. Exam Const General: no acute distress Nutritional Appearance: well nourished [facility] Head: normocephalic Ears: external ears normal and no periauricular adenopathy General nose exam: nasal mucous membranes and turbinates normal Face and sinus: sinuses nontender Mouth: oropharynx normal and moist mucous membranes Teeth and gingiva: dentition normal Eyes General: appearance normal, both eyes and all related structures Pupils: PERRL Neck Neck: normal visual inspection and no lymphadenopathy Chest Chest: normal inspection of the chest Resp Effort & Inspection: normal respiratory effort Auscultation: rales, no rhonchi and no wheezes Cardio Rate: regular rate Rhythm: regular rhythm Heart Sounds: S1 normal, S2 normal and no murmurs Pulses: radial pulses present bilaterally GI Inspection: normal to inspection Palpation: soft Skin General skin exam: no rashes or lesions noted Neuro General: patient alert, patient awake and patient oriented x3 Extrem General: no clubbing, cyanosis or edema Psych Mental Status: mental status grossly normal Affect: normal affect Attitude: cooperative Objective Last Vital Signs Temp 35.3 C L 09/17/21 07:29 Pulse 109 H 09/17/21 07:29 Resp 18 09/17/21 07:29 BP 144/83 H 09/17/21 07:29 Pulse Ox 94 09/17/21 07:29 Laboratory Results - last 24 hr 09/12/21 09/12/21 09/16/21 13:05 14:42 10:00 WBC 9.05 RBC 4.03 L Hgb 11.7 L Hct 36.4 L MCV 90.3 MCH 29.0 MCHC 32.1 RDW 16.8 H Plt Count 451 H MPV 9.0 Immature Gran % 10.8 Neutrophils % 63.0 Band Neutrophils % 8 Lymphocytes % 16.0 Monocytes % 13.0 Eosinophils % 0.0 Basophils % 0.0 Nucleated RBC % 0 Absolute Neutrophils 6.43 Absolute Lymphocytes 1.45 Absolute Monocytes 1.18 H Absolute Eosinophils 0.00 Absolute Basophils 0.00 RBC Morphology See Below Anisocytosis 1+ Microcytosis 1+ Ur Strep pneumoniae Ag Negative Miscellaneous Test See Comments Results Medications Medications: Active Medications Generic Name Dose Route Start Last Admin Trade Name Freq PRN Reason Stop Dose Admin Acetaminophen 650 mg 09/10/21 19:49 09/11/21 02:31 Acetaminophen 325 Mg Tab PO 650 mg Q4H PRN PRN Administration Acyclovir 400 mg 09/10/21 20:00 09/17/21 08:50 Acyclovir 400 Mg Tab PO 400 mg BID EVANGELISTA Administration Albuterol Sulfate 2 puff 09/11/21 08:53 Albuterol Hfa 8 Gm 60 Puff Inh IH Q4H PRN PRN Albuterol/Ipratropium 3 ml 09/12/21 13:29 Albuterol/Ipratropium 3 Ml Upd Vial UPD Q2H PRN PRN for SOB, wheezing, or cough Aspirin 81 mg 09/11/21 08:30 09/17/21 08:50 Aspirin 81 Mg Chew PO 81 mg DAILY EVANGELISTA Administration Atorvastatin Calcium 10 mg 09/10/21 20:00 09/16/21 21:24 Atorvastatin 10 Mg Tab PO 10 mg QPM [facility] Administration Device 1 each 09/11/21 09:00 Inhaler, Assist Device [facility] Dimethicone/Zinc Oxide 0 gm 09/10/21 19:45 Pavel Protect Cream 142 Gm Tube TP PRN PRN Enoxaparin Sodium 40 mg 09/13/21 08:30 09/17/21 08:50 Enoxaparin 40 Mg/0.4 Ml Syr SC 40 mg DAILY [facility] Administration Hydroxyzine HCl 25 mg 09/10/21 19:49 Hydroxyzine Hcl 25 Mg Tab PO QID PRN PRN Cefepime HCl 2 gm/ Sodium 100 mls @ 200 mls/hr 09/11/21 18:00 09/17/21 02:07 Chloride IVPB Infused Q8H [facility] Infusion IV Miscellaneous Supplies 1 each 09/10/21 16:15 Iv Access IV [facility] Pantoprazole Sodium 40 mg 09/15/21 07:30 09/17/21 08:51 Pantoprazole 40 Mg Tabcr PO 40 mg DAILY@0730 [facility] Administration Prednisone 60 mg 09/14/21 08:30 09/17/21 08:50 Prednisone 20 Mg Tab PO 60 mg DAILY [facility] Administration Prochlorperazine Maleate 5 mg 09/10/21 19:49 Prochlorperazine 5 Mg Tab PO Q6H PRN PRN Psyllium Hydrophilic Mucilloid 1 each 09/13/21 20:00 09/17/21 08:51 Psyllium Pkt PO 1 each BID [facility] Administration Sodium Chloride 0 ml 09/10/21 16:09 09/17/21 01:14 Normal Saline Flush 10 Ml Syr IVP 10 ml PRN PRN Administration Zolpidem Tartrate 5 mg 09/10/21 19:49 Zolpidem 5 Mg Tab PO HS PRN MAY REPEAT X1 PRN Allergies No Known Allergies Allergy (Unverified 09/10/21 16:10) Labs Result Diagrams: 09/16/21 10:00 09/15/21 07:00 Labs: 09/12/21 14:42 Pleural Body Fluid Culture - Preliminary 09/12/21 14:42 Pleural Gram Stain - Final 09/10/21 18:30 Blood Blood Culture - Final NO GROWTH 120 HOURS 09/10/21 16:22 Blood Blood Culture - Final NO GROWTH 120 HOURS 09/10/21 19:55 Urine - Reflex from Ua Urine Culture - Final Staphylococcus Epidermidis 09/10/21 19:55 Nose MRSA Screen - Final Laboratory Tests Range/Units 09/10/21 09/10/21 09/10/21 16:22 16:22 16:22 WBC (4.4-10.8) 10^3/uL 1.95 L* RBC (4.36-5.78) 10^6/uL 4.32 L Hgb (13.5-17.5) g/dL 12.4 L Hct (40.0-50.0) % 36.9 L MCV (80-95) fL 85.4 MCH (27.0-33.0) pg 28.7 MCHC (32.0-36.0) % 33.6 RDW (11.8-14.1) % 15.8 H Plt Count (130-400) 10^3/uL 153 MPV (8.0-11.0) fL 9.8 Immature Gran % 0.0 Neutrophils % 54.0 Band Neutrophils % 2 Lymphocytes % 23.0 Atypical Lymphs % Monocytes % 20.0 Eosinophils % 0.5 Basophils % 1.0 Myelocytes % Nucleated RBC % % 0 Absolute Neutrophils (1.2-6.7) 10^3/uL 1.09 L Absolute Lymphocytes (1.2-3.4) 10^3/uL 0.45 L Absolute Monocytes (0.1-0.8) 10^3/uL 0.39 Absolute Eosinophils (0.0-0.7) 10^3/uL 0.01 Absolute Basophils (0.0-0.2) 10^3/uL 0.02 RBC Morphology See Below Polychromasia Anisocytosis 1+ Microcytosis 1+ Macrocytosis 2+ PT (9.3-11.0) sec INR (0.9-1.1) D-Dimer (<500) ng/mlFEU VBG Lactate (0.6-1.4) mmol/L 2.7 H* Sodium (136-145) mmol/L 134 L Potassium (3.5-5.1) mmol/L 3.5 Chloride (98-107) mmol/L 100 Carbon Dioxide (21.0-32.0) mmol/L 22.1 Anion Gap (3-11) mmol/L 11.9 H BUN (7-18) mg/dL 20 H Creatinine (0.70-1.30) mg/dL 0.8 Estimated GFR/1.73 m2 (mL/min/1.73m2) >= 60.00 Glucose (74-106) mg/dL 179 H Hemoglobin A1c (<5.7) % Calcium (8.5-10.1) mg/dL 8.5 Phosphorus (2.6-4.7) mg/dL Magnesium (1.8-2.4) mg/dL Ferritin (26-388) ng/mL Total Bilirubin (0.2-1.0) mg/dL 0.8 Conjugated Bilirubin (0.0-0.2) mg/dL AST (15-37) U/L 31 ALT (16-63) U/L 35 Alkaline Phosphatase (46-116) U/L 65 C-Reactive Protein (0.0-0.3) mg/dL NT-Pro-B Natriuret Pep (<300) pg/mL Total Protein (6.4-8.2) g/dL 5.9 L Albumin (3.4-5.0) g/dL 2.6 L Procalcitonin ng/mL Urine Color (Yellow) Urine Clarity (Clear) Urine pH (5-8) Ur Specific [place] (1.005-1.025) Urine Protein (Negative) mg/dL Urine Ketones (Negative) mg/dL Urine Blood (Negative) Urine Nitrite (Negative) Urine Bilirubin (Negative) Urine Urobilinogen (Up TO 0.2) EU/dL Ur Leukocyte Esterase (Negative) Urine RBC (0-2) HPF Urine WBC (0-5) HPF Ur Epithelial Cells (Negative) HPF Urine Crystals (Negative) HPF Urine Bacteria (Negative) HPF Urine Casts (Negative) LPF Urine Mucus (Negative) Ur Culture Indicated? Urine Glucose (Negative) mg/dL Fluid Source Fluid Color Fluid Clarity Fluid WBC Fld Polynuclear WBCs % % Fluid Mononuclear Cell % Fluid Other Cells % COVID-19 Source SARS-CoV-2 (PCR) (Negative) Nasopharyn COVID-19 PCR Urine Histoplasma Ag U Histoplasma Ag Index ng/mL Influenza Type A (PCR) (Negative) Influenza Type B (PCR) (Negative) Urine Legionella Ag (Negative) M. pneumoniae Source M. pneumoniae (PCR) RSV (PCR) (Negative) Ur Strep pneumoniae Ag (Negative) B-(1,3)-D-Glucan Quant (<60 pg/mL) pg/mL B-(1,3)-D-Glucan Qual (Negative) Path Cons Comment Add-On Test Request Miscellaneous Test Ref Test Perform Site Range/Units 09/10/21 09/10/21 09/11/21 16:28 19:55 06:30 WBC (4.4-10.8) 10^3/uL RBC (4.36-5.78) 10^6/uL Hgb (13.5-17.5) g/dL Hct (40.0-50.0) % MCV (80-95) fL MCH (27.0-33.0) pg MCHC (32.0-36.0) % RDW (11.8-14.1) % Plt Count (130-400) 10^3/uL MPV (8.0-11.0) fL Immature Gran % Neutrophils % Band Neutrophils % Lymphocytes % Atypical Lymphs % Monocytes % Eosinophils % Basophils % Myelocytes % Nucleated RBC % % Absolute Neutrophils (1.2-6.7) 10^3/uL Absolute Lymphocytes (1.2-3.4) 10^3/uL Absolute Monocytes (0.1-0.8) 10^3/uL Absolute Eosinophils (0.0-0.7) 10^3/uL Absolute Basophils (0.0-0.2) 10^3/uL RBC Morphology Polychromasia Anisocytosis Microcytosis Macrocytosis PT (9.3-11.0) sec INR (0.9-1.1) D-Dimer (<500) ng/mlFEU VBG Lactate (0.6-1.4) mmol/L Sodium (136-145) mmol/L Potassium (3.5-5.1) mmol/L Chloride (98-107) mmol/L Carbon Dioxide (21.0-32.0) mmol/L Anion Gap (3-11) mmol/L BUN (7-18) mg/dL Creatinine (0.70-1.30) mg/dL Estimated GFR/1.73 m2 (mL/min/1.73m2) Glucose (74-106) mg/dL Hemoglobin A1c (<5.7) % Calcium (8.5-10.1) mg/dL Phosphorus (2.6-4.7) mg/dL Magnesium (1.8-2.4) mg/dL Ferritin (26-388) ng/mL Total Bilirubin (0.2-1.0) mg/dL Conjugated Bilirubin (0.0-0.2) mg/dL AST (15-37) U/L ALT (16-63) U/L Alkaline Phosphatase (46-116) U/L C-Reactive Protein (0.0-0.3) mg/dL NT-Pro-B Natriuret Pep (<300) pg/mL Total Protein (6.4-8.2) g/dL Albumin (3.4-5.0) g/dL Procalcitonin ng/mL Urine Color (Yellow) Yellow Urine Clarity (Clear) Clear Urine pH (5-8) 6.0 Ur Specific [place] (1.005-1.025) >= 1.030 H Urine Protein (Negative) mg/dL 30 H Urine Ketones (Negative) mg/dL Negative Urine Blood (Negative) Negative Urine Nitrite (Negative) Positive H Urine Bilirubin (Negative) Negative Urine Urobilinogen (Up TO 0.2) EU/dL 1.0 H Ur Leukocyte Esterase (Negative) Negative Urine RBC (0-2) HPF 0-2 Urine WBC (0-5) HPF 3-5 Ur Epithelial Cells (Negative) HPF Few Urine Crystals (Negative) HPF Few Calcium Oxalate Urine Bacteria (Negative) HPF Moderate Urine Casts (Negative) LPF Negative Urine Mucus (Negative) Moderate Ur Culture Indicated? Yes Urine Glucose (Negative) mg/dL 100 Fluid Source Fluid Color Fluid Clarity Fluid WBC Fld Polynuclear WBCs % % Fluid Mononuclear Cell % Fluid Other Cells % COVID-19 Source Nasal/Nares SARS-CoV-2 (PCR) (Negative) Negative Nasopharyn COVID-19 PCR Urine Histoplasma Ag U Histoplasma Ag Index ng/mL Influenza Type A (PCR) (Negative) Influenza Type B (PCR) (Negative) Urine Legionella Ag (Negative) M. pneumoniae Source M. pneumoniae (PCR) RSV (PCR) (Negative) Ur Strep pneumoniae Ag (Negative) B-(1,3)-D-Glucan Quant (<60 pg/mL) pg/mL >500 A B-(1,3)-D-Glucan Qual (Negative) Positive A Path Cons Comment Add-On Test Request Miscellaneous Test Ref Test Perform Site Range/Units 09/11/21 09/11/21 09/11/21 07:05 07:05 08:58 WBC (4.4-10.8) 10^3/uL 1.68 L* RBC (4.36-5.78) 10^6/uL 3.87 L Hgb (13.5-17.5) g/dL 11.2 L Hct (40.0-50.0) % 34.3 L MCV (80-95) fL 88.6 D MCH (27.0-33.0) pg 28.9 MCHC (32.0-36.0) % 32.7 RDW (11.8-14.1) % 15.9 H Plt Count (130-400) 10^3/uL 146 MPV (8.0-11.0) fL 9.5 Immature Gran % 0.0 Neutrophils % 48.0 Band Neutrophils % 1 Lymphocytes % 14.0 Atypical Lymphs % 26 Monocytes % 9.0 Eosinophils % 2.0 Basophils % 0.0 Myelocytes % Nucleated RBC % % 0 Absolute Neutrophils (1.2-6.7) 10^3/uL 0.82 L Absolute Lymphocytes (1.2-3.4) 10^3/uL 0.67 L Absolute Monocytes (0.1-0.8) 10^3/uL 0.15 Absolute Eosinophils (0.0-0.7) 10^3/uL 0.03 Absolute Basophils (0.0-0.2) 10^3/uL 0.00 RBC Morphology See Below Polychromasia Present Anisocytosis Microcytosis Macrocytosis PT (9.3-11.0) sec INR (0.9-1.1) D-Dimer (<500) ng/mlFEU VBG Lactate (0.6-1.4) mmol/L 1.2 Sodium (136-145) mmol/L Potassium (3.5-5.1) mmol/L Chloride (98-107) mmol/L Carbon Dioxide (21.0-32.0) mmol/L Anion Gap (3-11) mmol/L BUN (7-18) mg/dL Creatinine (0.70-1.30) mg/dL Estimated GFR/1.73 m2 (mL/min/1.73m2) Glucose (74-106) mg/dL Hemoglobin A1c (<5.7) % Calcium (8.5-10.1) mg/dL Phosphorus (2.6-4.7) mg/dL Magnesium (1.8-2.4) mg/dL Ferritin (26-388) ng/mL Total Bilirubin (0.2-1.0) mg/dL Conjugated Bilirubin (0.0-0.2) mg/dL AST (15-37) U/L ALT (16-63) U/L Alkaline Phosphatase (46-116) U/L C-Reactive Protein (0.0-0.3) mg/dL NT-Pro-B Natriuret Pep (<300) pg/mL Total Protein (6.4-8.2) g/dL Albumin (3.4-5.0) g/dL Procalcitonin ng/mL Urine Color (Yellow) Urine Clarity (Clear) Urine pH (5-8) Ur Specific [place] (1.005-1.025) Urine Protein (Negative) mg/dL Urine Ketones (Negative) mg/dL Urine Blood (Negative) Urine Nitrite (Negative) Urine Bilirubin (Negative) Urine Urobilinogen (Up TO 0.2) EU/dL Ur Leukocyte Esterase (Negative) Urine RBC (0-2) HPF Urine WBC (0-5) HPF Ur Epithelial Cells (Negative) HPF Urine Crystals (Negative) HPF Urine Bacteria (Negative) HPF Urine Casts (Negative) LPF Urine Mucus (Negative) Ur Culture Indicated? Urine Glucose (Negative) mg/dL Fluid Source Fluid Color Fluid Clarity Fluid WBC Fld Polynuclear WBCs % % Fluid Mononuclear Cell % Fluid Other Cells % COVID-19 Source Nasal/Nares SARS-CoV-2 (PCR) (Negative) Negative Nasopharyn COVID-19 PCR Urine Histoplasma Ag U Histoplasma Ag Index ng/mL Influenza Type A (PCR) (Negative) Influenza Type B (PCR) (Negative) Urine Legionella Ag (Negative) M. pneumoniae Source M. pneumoniae (PCR) RSV (PCR) (Negative) Ur Strep pneumoniae Ag (Negative) B-(1,3)-D-Glucan Quant (<60 pg/mL) pg/mL B-(1,3)-D-Glucan Qual (Negative) Path Cons Comment Add-On Test Request Miscellaneous Test Ref Test Perform Site Range/Units 09/11/21 09/11/21 09/11/21 09:40 09:40 09:40 WBC (4.4-10.8) 10^3/uL RBC (4.36-5.78) 10^6/uL Hgb (13.5-17.5) g/dL Hct (40.0-50.0) % MCV (80-95) fL MCH (27.0-33.0) pg MCHC (32.0-36.0) % RDW (11.8-14.1) % Plt Count (130-400) 10^3/uL MPV (8.0-11.0) fL Immature Gran % Neutrophils % Band Neutrophils % Lymphocytes % Atypical Lymphs % Monocytes % Eosinophils % Basophils % Myelocytes % Nucleated RBC % % Absolute Neutrophils (1.2-6.7) 10^3/uL Absolute Lymphocytes (1.2-3.4) 10^3/uL Absolute Monocytes (0.1-0.8) 10^3/uL Absolute Eosinophils (0.0-0.7) 10^3/uL Absolute Basophils (0.0-0.2) 10^3/uL RBC Morphology Polychromasia Anisocytosis Microcytosis Macrocytosis PT (9.3-11.0) sec INR (0.9-1.1) D-Dimer (<500) ng/mlFEU VBG Lactate (0.6-1.4) mmol/L Sodium (136-145) mmol/L 135 L Potassium (3.5-5.1) mmol/L 3.3 L Chloride (98-107) mmol/L 99 Carbon Dioxide (21.0-32.0) mmol/L 25.0 Anion Gap (3-11) mmol/L 11.0 BUN (7-18) mg/dL 14 D Creatinine (0.70-1.30) mg/dL 0.9 Estimated GFR/1.73 m2 (mL/min/1.73m2) >= 60.00 Glucose (74-106) mg/dL 194 H Hemoglobin A1c (<5.7) % Calcium (8.5-10.1) mg/dL 8.1 L Phosphorus (2.6-4.7) mg/dL 3.1 Cancelled Magnesium (1.8-2.4) mg/dL 1.7 L Ferritin (26-388) ng/mL 882 H Total Bilirubin (0.2-1.0) mg/dL Conjugated Bilirubin (0.0-0.2) mg/dL AST (15-37) U/L ALT (16-63) U/L Alkaline Phosphatase (46-116) U/L C-Reactive Protein (0.0-0.3) mg/dL 7.65 H NT-Pro-B Natriuret Pep (<300) pg/mL 347 H Total Protein (6.4-8.2) g/dL Albumin (3.4-5.0) g/dL Procalcitonin ng/mL 0.1 Urine Color (Yellow) Urine Clarity (Clear) Urine pH (5-8) Ur Specific [place] (1.005-1.025) Urine Protein (Negative) mg/dL Urine Ketones (Negative) mg/dL Urine Blood (Negative) Urine Nitrite (Negative) Urine Bilirubin (Negative) Urine Urobilinogen (Up TO 0.2) EU/dL Ur Leukocyte Esterase (Negative) Urine RBC (0-2) HPF Urine WBC (0-5) HPF Ur Epithelial Cells (Negative) HPF Urine Crystals (Negative) HPF Urine Bacteria (Negative) HPF Urine Casts (Negative) LPF Urine Mucus (Negative) Ur Culture Indicated? Urine Glucose (Negative) mg/dL Fluid Source Fluid Color Fluid Clarity Fluid WBC Fld Polynuclear WBCs % % Fluid Mononuclear Cell % Fluid Other Cells % COVID-19 Source SARS-CoV-2 (PCR) (Negative) Nasopharyn COVID-19 PCR Urine Histoplasma Ag U Histoplasma Ag Index ng/mL Influenza Type A (PCR) (Negative) Influenza Type B (PCR) (Negative) Urine Legionella Ag (Negative) M. pneumoniae Source M. pneumoniae (PCR) RSV (PCR) (Negative) Ur Strep pneumoniae Ag (Negative) B-(1,3)-D-Glucan Quant (<60 pg/mL) pg/mL B-(1,3)-D-Glucan Qual (Negative) Path Cons Comment Add-On Test Request Miscellaneous Test Ref Test Perform Site Range/Units 09/11/21 09/11/21 09/11/21 09:40 09:40 Unknown WBC (4.4-10.8) 10^3/uL 2.75 L D RBC (4.36-5.78) 10^6/uL 4.33 L Hgb (13.5-17.5) g/dL 12.5 L Hct (40.0-50.0) % 38.0 L MCV (80-95) fL 87.8 MCH (27.0-33.0) pg 28.9 MCHC (32.0-36.0) % 32.9 RDW (11.8-14.1) % 16.0 H Plt Count (130-400) 10^3/uL 210 MPV (8.0-11.0) fL 9.5 Immature Gran % See Differential Neutrophils % 23.0 Band Neutrophils % Lymphocytes % 42.0 Atypical Lymphs % 17 Monocytes % 12.0 Eosinophils % 4.0 Basophils % 2.0 Myelocytes % Nucleated RBC % % 0 Absolute Neutrophils (1.2-6.7) 10^3/uL 0.63 L Absolute Lymphocytes (1.2-3.4) 10^3/uL 1.62 Absolute Monocytes (0.1-0.8) 10^3/uL 0.33 Absolute Eosinophils (0.0-0.7) 10^3/uL 0.11 Absolute Basophils (0.0-0.2) 10^3/uL 0.06 RBC Morphology See Below Polychromasia Present Anisocytosis Microcytosis Macrocytosis PT (9.3-11.0) sec 10.4 INR (0.9-1.1) 1.0 D-Dimer (<500) ng/mlFEU 2339 H VBG Lactate (0.6-1.4) mmol/L Sodium (136-145) mmol/L Potassium (3.5-5.1) mmol/L Chloride (98-107) mmol/L Carbon Dioxide (21.0-32.0) mmol/L Anion Gap (3-11) mmol/L BUN (7-18) mg/dL Creatinine (0.70-1.30) mg/dL Estimated GFR/1.73 m2 (mL/min/1.73m2) Glucose (74-106) mg/dL Hemoglobin A1c (<5.7) % Calcium (8.5-10.1) mg/dL Phosphorus (2.6-4.7) mg/dL Magnesium (1.8-2.4) mg/dL Ferritin (26-388) ng/mL Total Bilirubin (0.2-1.0) mg/dL Conjugated Bilirubin (0.0-0.2) mg/dL AST (15-37) U/L ALT (16-63) U/L Alkaline Phosphatase (46-116) U/L C-Reactive Protein (0.0-0.3) mg/dL NT-Pro-B Natriuret Pep (<300) pg/mL Total Protein (6.4-8.2) g/dL Albumin (3.4-5.0) g/dL Procalcitonin ng/mL Urine Color (Yellow) Urine Clarity (Clear) Urine pH (5-8) Ur Specific [place] (1.005-1.025) Urine Protein (Negative) mg/dL Urine Ketones (Negative) mg/dL Urine Blood (Negative) Urine Nitrite (Negative) Urine Bilirubin (Negative) Urine Urobilinogen (Up TO 0.2) EU/dL Ur Leukocyte Esterase (Negative) Urine RBC (0-2) HPF Urine WBC (0-5) HPF Ur Epithelial Cells (Negative) HPF Urine Crystals (Negative) HPF Urine Bacteria (Negative) HPF Urine Casts (Negative) LPF Urine Mucus (Negative) Ur Culture Indicated? Urine Glucose (Negative) mg/dL Fluid Source Fluid Color Fluid Clarity Fluid WBC Fld Polynuclear WBCs % % Fluid Mononuclear Cell % Fluid Other Cells % COVID-19 Source SARS-CoV-2 (PCR) (Negative) Nasopharyn COVID-19 PCR Urine Histoplasma Ag U Histoplasma Ag Index ng/mL Influenza Type A (PCR) (Negative) Influenza Type B (PCR) (Negative) Urine Legionella Ag (Negative) M. pneumoniae Source M. pneumoniae (PCR) RSV (PCR) (Negative) Ur Strep pneumoniae Ag (Negative) B-(1,3)-D-Glucan Quant (<60 pg/mL) pg/mL B-(1,3)-D-Glucan Qual (Negative) Path Cons Comment Add-On Test Request TNP Miscellaneous Test Ref Test Perform Site Range/Units 09/12/21 09/12/21 09/12/21 06:30 06:30 06:30 WBC (4.4-10.8) 10^3/uL 1.98 L* RBC (4.36-5.78) 10^6/uL 3.81 L Hgb (13.5-17.5) g/dL 10.9 L Hct (40.0-50.0) % 33.2 L MCV (80-95) fL 87.1 MCH (27.0-33.0) pg 28.6 MCHC (32.0-36.0) % 32.8 RDW (11.8-14.1) % 15.8 H Plt Count (130-400) 10^3/uL 229 MPV (8.0-11.0) fL 9.8 Immature Gran % 0.0 Neutrophils % 51.0 Band Neutrophils % 6 Lymphocytes % 17.0 Atypical Lymphs % 15 Monocytes % 10.0 Eosinophils % 0.0 Basophils % 1.0 Myelocytes % Nucleated RBC % % 0 Absolute Neutrophils (1.2-6.7) 10^3/uL 1.13 L Absolute Lymphocytes (1.2-3.4) 10^3/uL 0.63 L Absolute Monocytes (0.1-0.8) 10^3/uL 0.20 Absolute Eosinophils (0.0-0.7) 10^3/uL 0.00 Absolute Basophils (0.0-0.2) 10^3/uL 0.02 RBC Morphology Normal Polychromasia Anisocytosis Microcytosis Macrocytosis PT (9.3-11.0) sec INR (0.9-1.1) D-Dimer (<500) ng/mlFEU VBG Lactate (0.6-1.4) mmol/L Sodium (136-145) mmol/L 136 Potassium (3.5-5.1) mmol/L 3.6 Chloride (98-107) mmol/L 103 Carbon Dioxide (21.0-32.0) mmol/L 26.0 Anion Gap (3-11) mmol/L 7.0 BUN (7-18) mg/dL 13 Creatinine (0.70-1.30) mg/dL 0.6 L D Estimated GFR/1.73 m2 (mL/min/1.73m2) >= 60.00 Glucose (74-106) mg/dL 125 H Hemoglobin A1c (<5.7) % 7.0 H Calcium (8.5-10.1) mg/dL 7.9 L Phosphorus (2.6-4.7) mg/dL 3.5 Magnesium (1.8-2.4) mg/dL 2.2 Ferritin (26-388) ng/mL Total Bilirubin (0.2-1.0) mg/dL 0.7 Conjugated Bilirubin (0.0-0.2) mg/dL 0.2 AST (15-37) U/L 28 ALT (16-63) U/L 31 Alkaline Phosphatase (46-116) U/L 52 C-Reactive Protein (0.0-0.3) mg/dL NT-Pro-B Natriuret Pep (<300) pg/mL Total Protein (6.4-8.2) g/dL 5.0 L Albumin (3.4-5.0) g/dL 2.1 L Procalcitonin ng/mL Urine Color (Yellow) Urine Clarity (Clear) Urine pH (5-8) Ur Specific [place] (1.005-1.025) Urine Protein (Negative) mg/dL Urine Ketones (Negative) mg/dL Urine Blood (Negative) Urine Nitrite (Negative) Urine Bilirubin (Negative) Urine Urobilinogen (Up TO 0.2) EU/dL Ur Leukocyte Esterase (Negative) Urine RBC (0-2) HPF Urine WBC (0-5) HPF Ur Epithelial Cells (Negative) HPF Urine Crystals (Negative) HPF Urine Bacteria (Negative) HPF Urine Casts (Negative) LPF Urine Mucus (Negative) Ur Culture Indicated? Urine Glucose (Negative) mg/dL Fluid Source Fluid Color Fluid Clarity Fluid WBC Fld Polynuclear WBCs % % Fluid Mononuclear Cell % Fluid Other Cells % COVID-19 Source SARS-CoV-2 (PCR) (Negative) Nasopharyn COVID-19 PCR Urine Histoplasma Ag U Histoplasma Ag Index ng/mL Influenza Type A (PCR) (Negative) Influenza Type B (PCR) (Negative) Urine Legionella Ag (Negative) M. pneumoniae Source M. pneumoniae (PCR) RSV (PCR) (Negative) Ur Strep pneumoniae Ag (Negative) B-(1,3)-D-Glucan Quant (<60 pg/mL) pg/mL B-(1,3)-D-Glucan Qual (Negative) Path Cons Comment Add-On Test Request Miscellaneous Test Ref Test Perform Site Range/Units 09/12/21 09/12/21 09/12/21 13:05 13:05 13:05 WBC (4.4-10.8) 10^3/uL RBC (4.36-5.78) 10^6/uL Hgb (13.5-17.5) g/dL Hct (40.0-50.0) % MCV (80-95) fL MCH (27.0-33.0) pg MCHC (32.0-36.0) % RDW (11.8-14.1) % Plt Count (130-400) 10^3/uL MPV (8.0-11.0) fL Immature Gran % Neutrophils % Band Neutrophils % Lymphocytes % Atypical Lymphs % Monocytes % Eosinophils % Basophils % Myelocytes % Nucleated RBC % % Absolute Neutrophils (1.2-6.7) 10^3/uL Absolute Lymphocytes (1.2-3.4) 10^3/uL Absolute Monocytes (0.1-0.8) 10^3/uL Absolute Eosinophils (0.0-0.7) 10^3/uL Absolute Basophils (0.0-0.2) 10^3/uL RBC Morphology Polychromasia Anisocytosis Microcytosis Macrocytosis PT (9.3-11.0) sec INR (0.9-1.1) D-Dimer (<500) ng/mlFEU VBG Lactate (0.6-1.4) mmol/L Sodium (136-145) mmol/L Potassium (3.5-5.1) mmol/L Chloride (98-107) mmol/L Carbon Dioxide (21.0-32.0) mmol/L Anion Gap (3-11) mmol/L BUN (7-18) mg/dL Creatinine (0.70-1.30) mg/dL Estimated GFR/1.73 m2 (mL/min/1.73m2) Glucose (74-106) mg/dL Hemoglobin A1c (<5.7) % Calcium (8.5-10.1) mg/dL Phosphorus (2.6-4.7) mg/dL Magnesium (1.8-2.4) mg/dL Ferritin (26-388) ng/mL Total Bilirubin (0.2-1.0) mg/dL Conjugated Bilirubin (0.0-0.2) mg/dL AST (15-37) U/L ALT (16-63) U/L Alkaline Phosphatase (46-116) U/L C-Reactive Protein (0.0-0.3) mg/dL NT-Pro-B Natriuret Pep (<300) pg/mL Total Protein (6.4-8.2) g/dL Albumin (3.4-5.0) g/dL Procalcitonin ng/mL Urine Color (Yellow) Urine Clarity (Clear) Urine pH (5-8) Ur Specific [place] (1.005-1.025) Urine Protein (Negative) mg/dL Urine Ketones (Negative) mg/dL Urine Blood (Negative) Urine Nitrite (Negative) Urine Bilirubin (Negative) Urine Urobilinogen (Up TO 0.2) EU/dL Ur Leukocyte Esterase (Negative) Urine RBC (0-2) HPF Urine WBC (0-5) HPF Ur Epithelial Cells (Negative) HPF Urine Crystals (Negative) HPF Urine Bacteria (Negative) HPF Urine Casts (Negative) LPF Urine Mucus (Negative) Ur Culture Indicated? Urine Glucose (Negative) mg/dL Fluid Source Fluid Color Fluid Clarity Fluid WBC Fld Polynuclear WBCs % % Fluid Mononuclear Cell % Fluid Other Cells % COVID-19 Source SARS-CoV-2 (PCR) (Negative) Nasopharyn COVID-19 PCR Urine Histoplasma Ag Not Detected U Histoplasma Ag Index ng/mL Not Detected Influenza Type A (PCR) (Negative) Influenza Type B (PCR) (Negative) Urine Legionella Ag (Negative) Negative M. pneumoniae Source M. pneumoniae (PCR) RSV (PCR) (Negative) Ur Strep pneumoniae Ag (Negative) Negative B-(1,3)-D-Glucan Quant (<60 pg/mL) pg/mL B-(1,3)-D-Glucan Qual (Negative) Path Cons Comment Add-On Test Request Miscellaneous Test Ref Test Perform Site Range/Units 09/12/21 09/12/21 09/12/21 14:42 14:42 14:42 WBC (4.4-10.8) 10^3/uL RBC (4.36-5.78) 10^6/uL Hgb (13.5-17.5) g/dL Hct (40.0-50.0) % MCV (80-95) fL MCH (27.0-33.0) pg MCHC (32.0-36.0) % RDW (11.8-14.1) % Plt Count (130-400) 10^3/uL MPV (8.0-11.0) fL Immature Gran % Neutrophils % Band Neutrophils % Lymphocytes % Atypical Lymphs % Monocytes % Eosinophils % Basophils % Myelocytes % Nucleated RBC % % Absolute Neutrophils (1.2-6.7) 10^3/uL Absolute Lymphocytes (1.2-3.4) 10^3/uL Absolute Monocytes (0.1-0.8) 10^3/uL Absolute Eosinophils (0.0-0.7) 10^3/uL Absolute Basophils (0.0-0.2) 10^3/uL RBC Morphology Polychromasia Anisocytosis Microcytosis Macrocytosis PT (9.3-11.0) sec INR (0.9-1.1) D-Dimer (<500) ng/mlFEU VBG Lactate (0.6-1.4) mmol/L Sodium (136-145) mmol/L Potassium (3.5-5.1) mmol/L Chloride (98-107) mmol/L Carbon Dioxide (21.0-32.0) mmol/L Anion Gap (3-11) mmol/L BUN (7-18) mg/dL Creatinine (0.70-1.30) mg/dL Estimated GFR/1.73 m2 (mL/min/1.73m2) Glucose (74-106) mg/dL Hemoglobin A1c (<5.7) % Calcium (8.5-10.1) mg/dL Phosphorus (2.6-4.7) mg/dL Magnesium (1.8-2.4) mg/dL Ferritin (26-388) ng/mL Total Bilirubin (0.2-1.0) mg/dL Conjugated Bilirubin (0.0-0.2) mg/dL AST (15-37) U/L ALT (16-63) U/L Alkaline Phosphatase (46-116) U/L C-Reactive Protein (0.0-0.3) mg/dL NT-Pro-B Natriuret Pep (<300) pg/mL Total Protein (6.4-8.2) g/dL Albumin (3.4-5.0) g/dL Procalcitonin ng/mL Urine Color (Yellow) Urine Clarity (Clear) Urine pH (5-8) Ur Specific [place] (1.005-1.025) Urine Protein (Negative) mg/dL Urine Ketones (Negative) mg/dL Urine Blood (Negative) Urine Nitrite (Negative) Urine Bilirubin (Negative) Urine Urobilinogen (Up TO 0.2) EU/dL Ur Leukocyte Esterase (Negative) Urine RBC (0-2) HPF Urine WBC (0-5) HPF Ur Epithelial Cells (Negative) HPF Urine Crystals (Negative) HPF Urine Bacteria (Negative) HPF Urine Casts (Negative) LPF Urine Mucus (Negative) Ur Culture Indicated? Urine Glucose (Negative) mg/dL Fluid Source Fluid Color Not Applicable Fluid Clarity Not Applicable Fluid WBC Not Applicable Fld Polynuclear WBCs % % 4 Fluid Mononuclear Cell % 44 Fluid Other Cells % 52 COVID-19 Source SARS-CoV-2 (PCR) (Negative) Nasopharyn COVID-19 PCR Urine Histoplasma Ag U Histoplasma Ag Index ng/mL Influenza Type A (PCR) (Negative) Influenza Type B (PCR) (Negative) Urine Legionella Ag (Negative) M. pneumoniae Source BAL M. pneumoniae (PCR) Negative RSV (PCR) (Negative) Ur Strep pneumoniae Ag (Negative) B-(1,3)-D-Glucan Quant (<60 pg/mL) pg/mL B-(1,3)-D-Glucan Qual (Negative) Path Cons Comment See Comment Add-On Test Request Miscellaneous Test Cancelled Ref Test Perform Site Range/Units 09/12/21 09/12/21 09/13/21 14:42 14:42 06:20 WBC (4.4-10.8) 10^3/uL RBC (4.36-5.78) 10^6/uL Hgb (13.5-17.5) g/dL Hct (40.0-50.0) % MCV (80-95) fL MCH (27.0-33.0) pg MCHC (32.0-36.0) % RDW (11.8-14.1) % Plt Count (130-400) 10^3/uL MPV (8.0-11.0) fL Immature Gran % Neutrophils % Band Neutrophils % Lymphocytes % Atypical Lymphs % Monocytes % Eosinophils % Basophils % Myelocytes % Nucleated RBC % % Absolute Neutrophils (1.2-6.7) 10^3/uL Absolute Lymphocytes (1.2-3.4) 10^3/uL Absolute Monocytes (0.1-0.8) 10^3/uL Absolute Eosinophils (0.0-0.7) 10^3/uL Absolute Basophils (0.0-0.2) 10^3/uL RBC Morphology Polychromasia Anisocytosis Microcytosis Macrocytosis PT (9.3-11.0) sec INR (0.9-1.1) D-Dimer (<500) ng/mlFEU VBG Lactate (0.6-1.4) mmol/L Sodium (136-145) mmol/L 134 L Potassium (3.5-5.1) mmol/L 3.5 Chloride (98-107) mmol/L 100 Carbon Dioxide (21.0-32.0) mmol/L 23.0 Anion Gap (3-11) mmol/L 11.0 BUN (7-18) mg/dL 13 Creatinine (0.70-1.30) mg/dL 0.7 Estimated GFR/1.73 m2 (mL/min/1.73m2) >= 60.00 Glucose (74-106) mg/dL 109 H Hemoglobin A1c (<5.7) % Calcium (8.5-10.1) mg/dL 8.0 L Phosphorus (2.6-4.7) mg/dL Magnesium (1.8-2.4) mg/dL 1.8 Ferritin (26-388) ng/mL Total Bilirubin (0.2-1.0) mg/dL Conjugated Bilirubin (0.0-0.2) mg/dL AST (15-37) U/L ALT (16-63) U/L Alkaline Phosphatase (46-116) U/L C-Reactive Protein (0.0-0.3) mg/dL 5.06 H NT-Pro-B Natriuret Pep (<300) pg/mL Total Protein (6.4-8.2) g/dL Albumin (3.4-5.0) g/dL Procalcitonin ng/mL Urine Color (Yellow) Urine Clarity (Clear) Urine pH (5-8) Ur Specific [place] (1.005-1.025) Urine Protein (Negative) mg/dL Urine Ketones (Negative) mg/dL Urine Blood (Negative) Urine Nitrite (Negative) Urine Bilirubin (Negative) Urine Urobilinogen (Up TO 0.2) EU/dL Ur Leukocyte Esterase (Negative) Urine RBC (0-2) HPF Urine WBC (0-5) HPF Ur Epithelial Cells (Negative) HPF Urine Crystals (Negative) HPF Urine Bacteria (Negative) HPF Urine Casts (Negative) LPF Urine Mucus (Negative) Ur Culture Indicated? Urine Glucose (Negative) mg/dL Fluid Source Fluid Color Fluid Clarity Fluid WBC Fld Polynuclear WBCs % % Fluid Mononuclear Cell % Fluid Other Cells % COVID-19 Source SARS-CoV-2 (PCR) (Negative) Cancelled Nasopharyn COVID-19 PCR Cancelled Urine Histoplasma Ag U Histoplasma Ag Index ng/mL Influenza Type A (PCR) (Negative) Influenza Type B (PCR) (Negative) Urine Legionella Ag (Negative) M. pneumoniae Source M. pneumoniae (PCR) RSV (PCR) (Negative) Ur Strep pneumoniae Ag (Negative) B-(1,3)-D-Glucan Quant (<60 pg/mL) pg/mL B-(1,3)-D-Glucan Qual (Negative) Path Cons Comment Add-On Test Request Miscellaneous Test See Comments Ref Test Perform Site Cancelled Range/Units 09/13/21 09/13/21 09/14/21 06:20 18:45 07:00 WBC (4.4-10.8) 10^3/uL 3.17 L D RBC (4.36-5.78) 10^6/uL 4.25 L Hgb (13.5-17.5) g/dL 12.0 L Hct (40.0-50.0) % 37.6 L MCV (80-95) fL 88.5 MCH (27.0-33.0) pg 28.2 MCHC (32.0-36.0) % 31.9 L RDW (11.8-14.1) % 16.4 H Plt Count (130-400) 10^3/uL 378 D MPV (8.0-11.0) fL 9.2 Immature Gran % 0.0 Neutrophils % 49.0 Band Neutrophils % Lymphocytes % 37.0 Atypical Lymphs % Monocytes % 14.0 Eosinophils % 0.0 Basophils % 0.0 Myelocytes % Nucleated RBC % % 0 Absolute Neutrophils (1.2-6.7) 10^3/uL 1.55 Absolute Lymphocytes (1.2-3.4) 10^3/uL 1.17 L Absolute Monocytes (0.1-0.8) 10^3/uL 0.44 Absolute Eosinophils (0.0-0.7) 10^3/uL 0.00 Absolute Basophils (0.0-0.2) 10^3/uL 0.00 RBC Morphology Normal Polychromasia Anisocytosis Microcytosis Macrocytosis PT (9.3-11.0) sec INR (0.9-1.1) D-Dimer (<500) ng/mlFEU VBG Lactate (0.6-1.4) mmol/L Sodium (136-145) mmol/L 135 L Potassium (3.5-5.1) mmol/L 3.5 Chloride (98-107) mmol/L 102 Carbon Dioxide (21.0-32.0) mmol/L 26.8 Anion Gap (3-11) mmol/L 6.2 BUN (7-18) mg/dL 12 Creatinine (0.70-1.30) mg/dL 0.7 Estimated GFR/1.73 m2 (mL/min/1.73m2) >= 60.00 Glucose (74-106) mg/dL 106 Hemoglobin A1c (<5.7) % Calcium (8.5-10.1) mg/dL 7.7 L Phosphorus (2.6-4.7) mg/dL Magnesium (1.8-2.4) mg/dL 1.8 Ferritin (26-388) ng/mL Total Bilirubin (0.2-1.0) mg/dL Conjugated Bilirubin (0.0-0.2) mg/dL AST (15-37) U/L ALT (16-63) U/L Alkaline Phosphatase (46-116) U/L C-Reactive Protein (0.0-0.3) mg/dL 3.10 H NT-Pro-B Natriuret Pep (<300) pg/mL Total Protein (6.4-8.2) g/dL Albumin (3.4-5.0) g/dL Procalcitonin ng/mL Urine Color (Yellow) Urine Clarity (Clear) Urine pH (5-8) Ur Specific [place] (1.005-1.025) Urine Protein (Negative) mg/dL Urine Ketones (Negative) mg/dL Urine Blood (Negative) Urine Nitrite (Negative) Urine Bilirubin (Negative) Urine Urobilinogen (Up TO 0.2) EU/dL Ur Leukocyte Esterase (Negative) Urine RBC (0-2) HPF Urine WBC (0-5) HPF Ur Epithelial Cells (Negative) HPF Urine Crystals (Negative) HPF Urine Bacteria (Negative) HPF Urine Casts (Negative) LPF Urine Mucus (Negative) Ur Culture Indicated? Urine Glucose (Negative) mg/dL Fluid Source Fluid Color Fluid Clarity Fluid WBC Fld Polynuclear WBCs % % Fluid Mononuclear Cell % Fluid Other Cells % COVID-19 Source Nasopharynx SARS-CoV-2 (PCR) (Negative) Negative Nasopharyn COVID-19 PCR Urine Histoplasma Ag U Histoplasma Ag Index ng/mL Influenza Type A (PCR) (Negative) Negative Influenza Type B (PCR) (Negative) Negative Urine Legionella Ag (Negative) M. pneumoniae Source M. pneumoniae (PCR) RSV (PCR) (Negative) Negative Ur Strep pneumoniae Ag (Negative) B-(1,3)-D-Glucan Quant (<60 pg/mL) pg/mL B-(1,3)-D-Glucan Qual (Negative) Path Cons Comment Add-On Test Request Miscellaneous Test Ref Test Perform Site Range/Units 09/14/21 09/15/21 09/16/21 07:00 07:00 10:00 WBC (4.4-10.8) 10^3/uL 3.49 L 9.05 RBC (4.36-5.78) 10^6/uL 3.96 L 4.03 L Hgb (13.5-17.5) g/dL 11.2 L 11.7 L Hct (40.0-50.0) % 34.9 L 36.4 L MCV (80-95) fL 88.1 90.3 MCH (27.0-33.0) pg 28.3 29.0 MCHC (32.0-36.0) % 32.1 32.1 RDW (11.8-14.1) % 16.4 H 16.8 H Plt Count (130-400) 10^3/uL 344 451 H MPV (8.0-11.0) fL 9.0 9.0 Immature Gran % See Differential 10.8 Neutrophils % 50.0 63.0 Band Neutrophils % 7 8 Lymphocytes % 26.0 16.0 Atypical Lymphs % 10 Monocytes % 5.0 13.0 Eosinophils % 0.0 0.0 Basophils % 0.0 0.0 Myelocytes % 2 Nucleated RBC % % 0 0 Absolute Neutrophils (1.2-6.7) 10^3/uL 1.99 6.43 Absolute Lymphocytes (1.2-3.4) 10^3/uL 1.26 1.45 Absolute Monocytes (0.1-0.8) 10^3/uL 0.17 1.18 H Absolute Eosinophils (0.0-0.7) 10^3/uL 0.00 0.00 Absolute Basophils (0.0-0.2) 10^3/uL 0.00 0.00 RBC Morphology Normal See Below Polychromasia Anisocytosis 1+ Microcytosis 1+ Macrocytosis PT (9.3-11.0) sec INR (0.9-1.1) D-Dimer (<500) ng/mlFEU VBG Lactate (0.6-1.4) mmol/L Sodium (136-145) mmol/L 138 Potassium (3.5-5.1) mmol/L 3.5 Chloride (98-107) mmol/L 104 Carbon Dioxide (21.0-32.0) mmol/L 27.2 Anion Gap (3-11) mmol/L 6.8 BUN (7-18) mg/dL 10 Creatinine (0.70-1.30) mg/dL 0.6 L Estimated GFR/1.73 m2 (mL/min/1.73m2) >= 60.00 Glucose (74-106) mg/dL 98 Hemoglobin A1c (<5.7) % Calcium (8.5-10.1) mg/dL 8.1 L Phosphorus (2.6-4.7) mg/dL Magnesium (1.8-2.4) mg/dL 2.0 Ferritin (26-388) ng/mL Total Bilirubin (0.2-1.0) mg/dL Conjugated Bilirubin (0.0-0.2) mg/dL AST (15-37) U/L ALT (16-63) U/L Alkaline Phosphatase (46-116) U/L C-Reactive Protein (0.0-0.3) mg/dL NT-Pro-B Natriuret Pep (<300) pg/mL Total Protein (6.4-8.2) g/dL Albumin (3.4-5.0) g/dL Procalcitonin ng/mL Urine Color (Yellow) Urine Clarity (Clear) Urine pH (5-8) Ur Specific [place] (1.005-1.025) Urine Protein (Negative) mg/dL Urine Ketones (Negative) mg/dL Urine Blood (Negative) Urine Nitrite (Negative) Urine Bilirubin (Negative) Urine Urobilinogen (Up TO 0.2) EU/dL Ur Leukocyte Esterase (Negative) Urine RBC (0-2) HPF Urine WBC (0-5) HPF Ur Epithelial Cells (Negative) HPF Urine Crystals (Negative) HPF Urine Bacteria (Negative) HPF Urine Casts (Negative) LPF Urine Mucus (Negative) Ur Culture Indicated? Urine Glucose (Negative) mg/dL Fluid Source Fluid Color Fluid Clarity Fluid WBC Fld Polynuclear WBCs % % Fluid Mononuclear Cell % Fluid Other Cells % COVID-19 Source SARS-CoV-2 (PCR) (Negative) Nasopharyn COVID-19 PCR Urine Histoplasma Ag U Histoplasma Ag Index ng/mL Influenza Type A (PCR) (Negative) Influenza Type B (PCR) (Negative) Urine Legionella Ag (Negative) M. pneumoniae Source M. pneumoniae (PCR) RSV (PCR) (Negative) Ur Strep pneumoniae Ag (Negative) B-(1,3)-D-Glucan Quant (<60 pg/mL) pg/mL B-(1,3)-D-Glucan Qual (Negative) Path Cons Comment Add-On Test Request Miscellaneous Test Ref Test Perform Site
--- NOTE | 2021-09-17 10:37 | W.PM.DS.N ---
Date of service: 09/17/21 Time of Service: 10:39 DS: Diagnosis Discharge Diagnosis (1) NHL (non-Hodgkin's lymphoma): Status: Chronic (2) Neutropenic fever: Status: Resolved (3) Drug-induced pneumonitis: Status: Acute (4) Acute respiratory failure with hypoxia: Status: Resolved Discharge Plan Disposition Patient Disposition: HOME Condition: Improving Discharge Details Reason For Visit: Fever,Neutropenia,Pneumonitis Admit Date/Time: 09/10/21 19:45 Admit Provider: Jeb Whyte Attending Provider: Jeb Whyte Primary Care Provider: Hannah Silvestre [facility] Hospital Course: 71 male with h/o recently diagnosed non-Hodgkins lymphoma 07/22, on cycle 2 of R-COPE chemo, last dose 11 day [employer]. here with 3 days of fever (to 102). Does endorse a degree of cough, though this has been present for several months and he states it is getting better. No CP, SOB. Otherwise feels his usual self. In ER findings of note for absence of fever, white count 1.95 with ANC 1086; CXR with patchy air space disease right mid and lower lung [place]. urine is pending. COVID negative. Cultures obtained and patient given dose of Zosyn. Once admitted antibiotic coverage changed to cefepime. Prophylactic acyclovir also initiated. Pulmonary medicine consulted and a bronchoscopy was performed given his high risk for an opportunistic infection. His neutropenia resolved; WBC count normalized. His pulmonary status improved and he required no supplemental O2 at rest or with activity on the day of discharge. Infectious w/u, including BAL cultures were negative. Bronchoscopy also not consistent with lymphoma progression. This was likely a pneumonitis secondary his chemotherapy. Dr Medrano did discuss this with his oncologist, Dr Leong who was in agreement with the plan of care. He was placed on prednisone at 60mg daily with a planned long taper. Bactrim SS daily initiated for prophylaxis. Follow up with PCP in 1-2 weeks. Follow up with oncologist, Dr Leong as per their arrangement. Home Meds and New Rx's Prescriptions: New atorvastatin 10 mg Tablet 10 mg PO QPM Qty: 30 RF: 0 pantoprazole 40 mg Tablet,Delayed Release (Dr/Ec) 40 mg PO DAILY@0730 Qty: 30 RF: 1 aspirin 81 mg Tablet,Chewable 81 mg PO DAILY Qty: 0 RF: 0 Metamucil Sugar-Free (aspart) 3.4 gram/5.8 gram Powder 1 ea PO BID Qty: 0 RF: 0 sulfamethoxazole-trimethoprim 400-80 mg tablet 1 tab PO DAILY Qty: 30 RF: 0 Acetaminophen [Tylenol] 650 mg PO Q4H PRN PRNQty: 0 RF: 0 prednisone 10 mg tablet See Rx Instructions .ROUTE .COMPLEX Qty: 127 RF: 0 sulfamethoxazole-trimethoprim [Bactrim] 400-80 mg tablet 1 tab PO DAILY Qty: 30 RF: 0 Continued Metamucil 3.4 gram/5.4 gram Powder 1 tbsp PO DAILY RF: 0 Discontinued ibuprofen 600 MG tablet 600 mg PO TID PRN PRNQty: 30 RF: 0 prednisone 10 mg Tablets,Dose Pack 20 mg PO RF: 0 Discharge Instructions Instructions: Prednisone (By mouth) Stand Alone Forms: Nursing Discharge Form Referrals: Henny Mckeon MD [ NON-[facility] STAFF PHYSICIAN] - (Please follow up as recommended) Hannah Silvestre [Primary Care Provider] - (Please call tomorrow to make a follow up appointment) Activity:: Activity as Tolerated Equipment/Supplies:: No Equipment Needed Diet:: Resume usual diet Discharge Orders Discharge Orders: Discharge Order (Routine); Ordered 09/17/21 Ordered By: Fred Horton Discharge Data Discharge Date/Time-TO BE ENTERED AT DEPARTURE: 09/17/21 13:19 DS: Summary Time Spent with Patient providing and/or coordinating discharge services: Greater than 30 minutes Status at Discharge Functional status at discharge: independent ambulation Overall status at discharge: patient is progressing back to baseline Mental Status: mental status grossly normal Speech and Movement: speech and movement normal Mood: congruent mood Affect: normal affect Exam Narrative Exam Narrative: Sitting in chair my the windown with IS and acapella beside him. Const General: cooperative and no acute distress Nutritional Appearance: average body habitus Orientation: alert and oriented x3 Eyes General: appearance normal, both eyes and all related structures Sclera: sclerae normal Resp Effort & Inspection: normal respiratory effort Auscultation: rales bilaterally at the base Cardio Jugular venous pressure: no JVD Rate: regular rate Rhythm: regular rhythm Heart Sounds: S1 normal and S2 normal GI Palpation: soft and nontender Skin General skin exam: no rashes or lesions noted Extrem General: no pedal edema and no calf tenderness Psych Appearance: grossly normal Mental Status: mental status grossly normal Speech and Movement: speech and movement normal Mood: congruent mood Affect: normal affect DS: Data Vitals/I&O Vitals and I&O: Vital Signs Temperature 35.3 C L 09/17/21 07:29 Temperature Source Tympanic 09/17/21 07:29 Pulse 109 H 09/17/21 07:29 Pulse Rhythm Regular 09/17/21 08:55 Respiratory Rate 18 09/17/21 07:29 Respiratory Effort Non-Labored 09/17/21 08:55 Respiratory Depth Normal 09/17/21 08:55 Respiratory Pattern Normal 09/17/21 08:55 Blood Pressure 144/83 H 09/17/21 07:29 Blood Pressure Position Sitting 09/10/21 16:00 Pulse Oximetry 94 09/17/21 07:29 Oxygen Delivery Method Room Air 09/17/21 07:29 Oxygen Flow Rate 0 09/17/21 07:29 Pain Level 0 09/17/21 07:29 Comment 09/16/21 09:20 Intake & Output 09/16/21 09/16/21 09/17/21 11:59 23:59 11:59 Intake Total 1000 / 1460 460 / 1460 100 / 100 Output Total 550 / 800 250 / 800 500 / 500 Balance 450 / 660 210 / 660 -400 / -400 Intake: IV 200 / 300 100 / 300 100 / 100 Oral 800 / 1160 360 / 1160 Output: Urine 550 / 800 250 / 800 500 / 500 Other: Urine Color Light Porsha Yellow Pale Yellow Urine Appearance Clear Clear Clear Urine Odor None Normal Comment pT voiding independently in toilet voiding independently Voiding Methods Urinal Toilet Urinal Urinal Data Completed and Pending Labs on day of discharge: Labs from last 24 hours 09/16/21 09/12/21 09/12/21 10:00 14:42 13:05 WBC 9.05 RBC 4.03 L Hgb 11.7 L Hct 36.4 L MCV 90.3 MCH 29.0 MCHC 32.1 RDW 16.8 H Plt Count 451 H MPV 9.0 Immature Gran % 10.8 Neutrophils % 63.0 Band Neutrophils % 8 Lymphocytes % 16.0 Monocytes % 13.0 Eosinophils % 0.0 Basophils % 0.0 Nucleated RBC % 0 Absolute Neutrophils 6.43 Absolute Lymphocytes 1.45 Absolute Monocytes 1.18 H Absolute Eosinophils 0.00 Absolute Basophils 0.00 RBC Morphology See Below Anisocytosis 1+ Microcytosis 1+ Ur Strep pneumoniae Ag Negative Miscellaneous Test See Comments Preliminary micro results at discharge 09/12/21 14:42 Body Fluid Culture - Preliminary Pleural PFSH All Active Problems (Updated 09/18/21 @ 00:05 by HAM HOLLAND) Drug-induced pneumonitis (Acute) NHL (non-Hodgkin's lymphoma) (Chronic) Lymphoma (Acute) Hemorrhagic pericardial effusion (Acute) CHF (congestive heart failure) (Chronic) Ascites (Acute) Social History Smoking/Tobacco Use Status: Former Tobacco Use Smoking risk assessment performed?: Yes Drug use: Never Substance use type: does not use Do you feel safe in your relationship?: Yes
[2021-09-17] MEDS: Heparin 500 UNITS/5 ML SYRINGE IVP (12:58)
[2021-09-17 13:01] VITALS: PULSE 80; PULSE 84; PULSE 88; RESP 16; RESP 18; O2SAT 91; O2SAT 95; O2SAT 96
[2021-09-17 14:42] LABS: Blastomyces Ag Result Not Detected; Blastomyces Ag Value Not Detected
[2021-10-10 10:33] LABS: Fungus Smear No Fungi Seen
== END 2021-09-17 13:19 | disposition home or self-care (01) | DRG 205 ==
LOC: ER 18:55 → MS 21:10
PROVIDERS: Family Medicine; Internal Medicine; Student in an Organized Health Care Education/Training Program; Admitting Provider General Practice; Emergency Provider Nurse Practitioner Family; PCP Internal Medicine; Visit Provider General Practice
PROC: 0BJ08ZZ Inspection of Tracheobronchial Tree, Via Natural or Artificial Opening Endoscopic (ICD-10-PCS; CPT 31622; principal; 2021-09-12 14:00)
DX: J70.2 Acute drug-induced interstitial lung disorders (principal); J96.01 Acute respiratory failure with hypoxia; C85.90 Non-Hodgkin lymphoma, unspecified, unspecified site; D70.1 Agranulocytosis secondary to cancer chemotherapy; T45.1X5A Adverse effect of antineoplastic and immunosuppressive drugs, initial encounter; R50.81 Fever presenting with conditions classified elsewhere; Z87.891 Personal history of nicotine dependence; I50.9 Heart failure, unspecified
CPT/HCPCS: 31624; 36415; 71275; 80048; 80053; 80076; 84145; 87040; 87077; 87081; 87102; 87206; 87449; 87632; 87635; 87637; 94618; 96361; 96365; 99285; J1650; U0003; 71045; 81003; 81015; 82728; 83036; 83605; 83735; 83880; 84100; 85025; 85379; 85610; 86140; 87070; 87086; 87186; 87205; 87385; 87581; 87899; 88104; 88184; 88185; 88312; 89051; 93306; 94667; 99222; 99232; 99233; 99239; J2001; J2250; J2543; J2930; J7512

== ENCOUNTER 2021-09-25 08:00 | Outpatient (RCR) | payer MEDICARE, OTHER, SELFPAY ==
[2021-09-05 10:46] LABS: Abs Immature Grans 0.35 10^3/uL (0.0-0.06); Absolute Basophil Count 0.09 10^3/uL (0.0-0.2); Absolute Eosinophil Count 0.16 10^3/uL (0.0-0.7); Absolute Lymphocyte Count 0.27 10^3/uL (1.2-3.4); Absolute Monocyte Count 0.09 10^3/uL (0.1-0.8); Absolute Neutrophil Count 6.05 10^3/uL (1.2-6.7); Basophils % 1.3; Eosinophils % 2.3; HCT 39.6 % (40.0-50.0); HGB 12.7 g/dL (13.5-17.5); Lymphocytes % 3.9; MCH 28.7 pg (27.0-33.0); MCHC 32.1 % (32.0-36.0); MCV 89.6 fL (80-95); MPV 8.6 fL (8.0-11.0); Monocytes % 1.3; Neutrophils % 86.2; Nucleated RBC 0 %; Platelet Count 132 10^3/uL (130-400); RBC 4.42 10^6/uL (4.36-5.78); RDW 14.5 % (11.8-14.1); RDW-SD 47.1 fL; WBC 7.01 10^3/uL (4.4-10.8)
[2021-09-05 10:59] LABS: ALT 65 U/L (16-63); AST 27 U/L (15-37); Albumin 2.9 g/dL (3.4-5.0); Alkaline Phosphatase 72 U/L (46-116); Anion Gap 9.1 mmol/L (3-11); BUN 18 mg/dL (7-18); Bilirubin, Total 0.9 mg/dL (0.2-1.0); CO2 23.9 mmol/L (21.0-32.0); CREATININE 0.7 mg/dL (0.70-1.30); Chloride 101 mmol/L (98-107); Glucose 179 mg/dL (74-106); LDH 193 U/L (85-227); Potassium 3.9 mmol/L (3.5-5.1); Sodium 134 mmol/L (136-145); Total Protein 5.8 g/dL (6.4-8.2)
[2021-09-05 11:07] LABS: Diff Comment Agrees w/ Instrument; RBC Morphology Normal
[2021-09-25 08:46] LABS: HCT 43.3 % (40.0-50.0); HGB 13.9 g/dL (13.5-17.5); MCH 29.5 pg (27.0-33.0); MCHC 32.1 % (32.0-36.0); MCV 91.9 fL (80-95); MPV 8.8 fL (8.0-11.0); Platelet Count 226 10^3/uL (130-400); RBC 4.71 10^6/uL (4.36-5.78); RDW 19.6 % (11.8-14.1); RDW-SD 62.4 fL; WBC 16.58 10^3/uL (4.4-10.8)
[2021-09-25 09:02] LABS: Absolute Lymphocyte Count 2.65 10^3/uL (1.2-3.4); Absolute Monocyte Count 1.16 10^3/uL (0.1-0.8); Atypical Lymphocytes % 14; Bands % 5; Diff Comment Manual Differential; Metamyelocytes % 1; Nucleated RBC 2 %; RBC Morphology Normal
[2021-09-25 09:04] LABS: ALT 65 U/L (16-63); AST 27 U/L (15-37); Alkaline Phosphatase 74 U/L (46-116); Anion Gap 11.3 mmol/L (3-11); BUN 27 mg/dL (7-18); Bilirubin, Total 0.6 mg/dL (0.2-1.0); CO2 21.7 mmol/L (21.0-32.0); CREATININE 0.8 mg/dL (0.70-1.30); Calcium 8.2 mg/dL (8.5-10.1); Chloride 104 mmol/L (98-107); Glucose 129 mg/dL (74-106); LDH 274 U/L (85-227); Sodium 137 mmol/L (136-145); Total Protein 6.1 g/dL (6.4-8.2)
== END 2021-10-01 23:59 | disposition home or self-care (01) ==
LOC: INF 08:00
PROVIDERS: Visit Provider Internal Medicine Hematology & Oncology
DX: C83.30 Diffuse large B-cell lymphoma, unspecified site (principal)
CPT/HCPCS: 36415; 80053; 83615; 85025

== ENCOUNTER 2021-10-23 01:49 | Outpatient (CLI) | payer MEDICARE, OTHER, SELFPAY ==
--- NOTE | 2021-10-23 12:04 | DI.CT_ITS ---
Exam(s) CT CHEST WO EXAM: CT CHEST WO CLINICAL HISTORY: follow up infiltrates,pneumonitis,j18.9,t50.905a TECHNIQUE: CT examination of the chest was performed without contrast administration COMPARISON: CT CT CHEST PE CTA from 09/11/2021 FINDINGS: Images obtained through the upper abdomen show previously noted hepatic cysts. Unremarkable noncont rast appearance of visualized portions of spleen, kidneys, adrenals, and pancreas. There is a Port-A-Cath in place, the tip of which lies in the superior vena cava. There is no mediastinal or hilar adenopathy. Mediastinal vascular structures appear intact by noncon trast criteria. Tracheobronchial tree appears intact. No pleural effusion or pleural-based mass. The previously identified ground-glass opacities, upper lobe predominant, noted on prior CT of , are significantly less prominent on today's examination and are now predominantly peripheral and reticular in appearance, the findings are consistent with expected interval improvement in COVID pneumonia. IMPRESSION: Interval evolution of predominantly ground-glass pneumonia noted on prior examination of September 11 , the radiodensities are now decreased, and predominantly peripheral and reticular. Findings are con sistent with resolving COVID pneumonia. RADIATION DOSE DELIVERED: 659.93mGy.cm Total DLP !Error CTDIvol 659.93mGy.cm Total DLP !Error CTDIvol RADIATION OPTIMIZATION: All CT scans at this facility use at least one of these dose optimization te chniques: automated exposure control; mA and/or kV adjustment per patient size (includes targeted exa ms where dose is matched to clinical indication); or iterative reconstruction.
== END 2021-10-23 02:09 ==
PROVIDERS: PCP Internal Medicine; Visit Provider Student in an Organized Health Care Education/Training Program
DX: J18.9 Pneumonia, unspecified organism (principal); T50.905A Adverse effect of unspecified drugs, medicaments and biological substances, initial encounter
CPT/HCPCS: 36591; 71250; 80053; 83615; 85025

== ENCOUNTER 2021-10-23 03:06 | Outpatient (RCR) | payer MEDICARE, OTHER, SELFPAY ==
[2021-10-23] MEDS: Normal Saline Flush 10 ML SYR IVP (11:56)
[2021-10-23] MEDS: Heparin 500 UNITS/5 ML SYRINGE IV (11:56)
[2021-10-23 12:05] LABS: Abs Immature Grans 0.29 10^3/uL (0.0-0.06); Absolute Basophil Count 0.07 10^3/uL (0.0-0.2); Absolute Eosinophil Count 0.09 10^3/uL (0.0-0.7); Absolute Lymphocyte Count 3.02 10^3/uL (1.2-3.4); Absolute Monocyte Count 0.92 10^3/uL (0.1-0.8); Absolute Neutrophil Count 7.87 10^3/uL (1.2-6.7); Basophils % 0.6; Eosinophils % 0.7; HGB 14.6 g/dL (13.5-17.5); Immature Grans % 2.4; Lymphocytes % 24.6; MCH 31.3 pg (27.0-33.0); MCHC 32.4 % (32.0-36.0); MCV 96.6 fL (80-95); MPV 8.8 fL (8.0-11.0); Monocytes % 7.5; Neutrophils % 64.2; Nucleated RBC 0 %; Platelet Count 185 10^3/uL (130-400); RBC 4.66 10^6/uL (4.36-5.78); RDW 18.6 % (11.8-14.1); RDW-SD 65.7 fL; WBC 12.26 10^3/uL (4.4-10.8)
[2021-10-23 12:35] LABS: ALT 54 U/L (16-63); AST 26 U/L (15-37); Albumin 3.5 g/dL (3.4-5.0); Alkaline Phosphatase 68 U/L (46-116); Anion Gap 9.3 mmol/L (3-11); BUN 20 mg/dL (7-18); Bilirubin, Total 0.7 mg/dL (0.2-1.0); CO2 25.7 mmol/L (21.0-32.0); CREATININE 0.7 mg/dL (0.70-1.30); Calcium 8.3 mg/dL (8.5-10.1); Chloride 105 mmol/L (98-107); Glucose 140 mg/dL (74-106); LDH 221 U/L (85-227); Potassium 4.2 mmol/L (3.5-5.1); Sodium 140 mmol/L (136-145); Total Protein 6.5 g/dL (6.4-8.2)
== END 2021-10-29 23:59 | disposition home or self-care (01) ==
LOC: INF 03:06
PROVIDERS: PCP Internal Medicine; Visit Provider Internal Medicine Hematology & Oncology
DX: C83.30 Diffuse large B-cell lymphoma, unspecified site (principal); Z45.2 Encounter for adjustment and management of vascular access device
CPT/HCPCS: 36591; 80053; 83615; 85025

== ENCOUNTER 2021-11-08 02:45 | Outpatient (CLI) | payer MEDICARE, OTHER, SELFPAY ==
[2021-11-08 14:56] LABS: Lab Add On Test See Comments
[2021-11-08 23:28] LABS: Rheumatoid Factor <8.6 IU/mL (<12.0)
[2021-11-09 09:41] LABS: Cyclic Citrullinated Peptide <2.5 U/mL (<5.0)
[2021-11-09 12:14] LABS: ANA Interpretation Negative (Negative)
[2021-11-13 15:47] LABS: dsDNA Ab, IgG <12.3 IU/mL (<30.0)
== END 2021-11-08 02:46 | disposition home or self-care (01) ==
LOC: LBO 02:45
PROVIDERS: PCP Internal Medicine; Visit Provider Student in an Organized Health Care Education/Training Program
DX: J18.8 Other pneumonia, unspecified organism (principal); T50.905A Adverse effect of unspecified drugs, medicaments and biological substances, initial encounter
CPT/HCPCS: 36591; 86200; 86038; 86225; 86431

== ENCOUNTER 2021-11-15 04:07 | Outpatient (CLI) | payer MEDICARE, OTHER, SELFPAY ==
[2021-11-15] MEDS: Albuterol HFA 18 GM 200 PUFF INH IH (14:48)
[2021-11-15] MEDS: Inhaler, Assist Device 1 EACH MC (14:48)
== END 2021-11-15 04:08 | disposition home or self-care (01) ==
LOC: RT 04:07
PROVIDERS: PCP Internal Medicine; Visit Provider Student in an Organized Health Care Education/Training Program
DX: J70.4 Drug-induced interstitial lung disorders, unspecified (principal); J98.4 Other disorders of lung; R06.00 Dyspnea, unspecified; Z87.891 Personal history of nicotine dependence; R94.2 Abnormal results of pulmonary function studies
CPT/HCPCS: 94060; 94726; 94729

== ENCOUNTER 2021-11-28 02:39 | Outpatient (RCR) | payer MEDICARE, OTHER, SELFPAY ==
[2021-10-31 08:17] LABS: Abs Immature Grans 0.09 10^3/uL (0.0-0.06); Absolute Basophil Count 0.05 10^3/uL (0.0-0.2); Absolute Eosinophil Count 0.11 10^3/uL (0.0-0.7); Absolute Monocyte Count 0.91 10^3/uL (0.1-0.8); Absolute Neutrophil Count 7.58 10^3/uL (1.2-6.7); Basophils % 0.4; Eosinophils % 0.9; HCT 43.1 % (40.0-50.0); HGB 13.8 g/dL (13.5-17.5); Immature Grans % 0.8; Lymphocytes % 26.8; MCH 31.3 pg (27.0-33.0); MCV 97.7 fL (80-95); MPV 8.7 fL (8.0-11.0); Monocytes % 7.6; Neutrophils % 63.5; Nucleated RBC 0 %; Platelet Count 194 10^3/uL (130-400); RBC 4.41 10^6/uL (4.36-5.78); RDW 18.1 % (11.8-14.1); RDW-SD 65.1 fL; WBC 11.94 10^3/uL (4.4-10.8)
[2021-10-31 08:32] LABS: ALT 41 U/L (16-63); AST 23 U/L (15-37); Albumin 3.4 g/dL (3.4-5.0); Alkaline Phosphatase 76 U/L (46-116); Anion Gap 7.2 mmol/L (3-11); BUN 12 mg/dL (7-18); Bilirubin, Total 0.7 mg/dL (0.2-1.0); CO2 27.8 mmol/L (21.0-32.0); CREATININE 0.7 mg/dL (0.70-1.30); Calcium 8.6 mg/dL (8.5-10.1); Chloride 106 mmol/L (98-107); Glucose 114 mg/dL (74-106); LDH 198 U/L (85-227); Potassium 4.3 mmol/L (3.5-5.1); Sodium 141 mmol/L (136-145); Total Protein 6.2 g/dL (6.4-8.2)
[2021-11-08] MEDS: Normal Saline Flush 10 ML SYR IVP (14:08)
[2021-11-08] MEDS: Heparin 500 UNITS/5 ML SYRINGE (14:09)
[2021-11-14] MEDS: Normal Saline Flush 10 ML SYR IVP (07:41)
[2021-11-14 08:05] LABS: Abs Immature Grans 0.99 10^3/uL (0.0-0.06); HCT 39.5 % (40.0-50.0); HGB 12.9 g/dL (13.5-17.5); MCH 31.5 pg (27.0-33.0); MCHC 32.7 % (32.0-36.0); MCV 96.6 fL (80-95); MPV 8.8 fL (8.0-11.0); Nucleated RBC 0 %; Platelet Count 156 10^3/uL (130-400); RBC 4.09 10^6/uL (4.36-5.78); RDW 16.5 % (11.8-14.1); RDW-SD 57.9 fL
[2021-11-14 08:12] LABS: ALT 51 U/L (16-63); AST 40 U/L (15-37); Albumin 3.2 g/dL (3.4-5.0); Alkaline Phosphatase 85 U/L (46-116); BUN 13 mg/dL (7-18); Bilirubin, Total 0.4 mg/dL (0.2-1.0); CREATININE 0.7 mg/dL (0.70-1.30); Calcium 8.4 mg/dL (8.5-10.1); Chloride 109 mmol/L (98-107); Glucose 136 mg/dL (74-106); LDH 259 U/L (85-227); Potassium 3.4 mmol/L (3.5-5.1); Sodium 143 mmol/L (136-145)
[2021-11-14 08:39] LABS: Anisocytosis 1+; Bands % 6; Diff Comment Manual Differential; Polychromasia Present
[2021-11-14 08:40] LABS: Absolute Basophil Count 0.09 10^3/uL (0.0-0.2); Absolute Lymphocyte Count 3.87 10^3/uL (1.2-3.4); Absolute Monocyte Count 0.44 10^3/uL (0.1-0.8); Atypical Lymphocytes % 5
[2021-11-28] MEDS: Normal Saline Flush 10 ML SYR IVP (08:48)
[2021-11-28 08:51] LABS: Abs Immature Grans 0.11 10^3/uL (0.0-0.06); Absolute Basophil Count 0.12 10^3/uL (0.0-0.2); Absolute Lymphocyte Count 2.29 10^3/uL (1.2-3.4); Absolute Monocyte Count 1.03 10^3/uL (0.1-0.8); Absolute Neutrophil Count 9.68 10^3/uL (1.2-6.7); Basophils % 0.9; Eosinophils % 1.3; HCT 43.7 % (40.0-50.0); HGB 14.1 g/dL (13.5-17.5); Immature Grans % 0.8; Lymphocytes % 17.1; MCH 31.5 pg (27.0-33.0); MCHC 32.3 % (32.0-36.0); MCV 97.5 fL (80-95); MPV 9.1 fL (8.0-11.0); Monocytes % 7.7; Neutrophils % 72.2; Nucleated RBC 0 %; Platelet Count 291 10^3/uL (130-400); RBC 4.48 10^6/uL (4.36-5.78); RDW-SD 57.3 fL; WBC 13.41 10^3/uL (4.4-10.8)
[2021-11-28 08:53] LABS: Absolute Eosinophil Count 0.17 10^3/uL (0.0-0.7)
[2021-11-28 09:22] LABS: ALT 46 U/L (16-63); AST 25 U/L (15-37); Albumin 3.6 g/dL (3.4-5.0); Alkaline Phosphatase 83 U/L (46-116); Anion Gap 7.5 mmol/L (3-11); BUN 20 mg/dL (7-18); Bilirubin, Total 0.5 mg/dL (0.2-1.0); CO2 25.5 mmol/L (21.0-32.0); CREATININE 0.7 mg/dL (0.70-1.30); Chloride 108 mmol/L (98-107); Glucose 142 mg/dL (74-106); LDH 205 U/L (85-227); Potassium 4.2 mmol/L (3.5-5.1); Sodium 141 mmol/L (136-145); Total Protein 6.6 g/dL (6.4-8.2)
== END 2021-11-29 23:59 | disposition home or self-care (01) ==
LOC: INF 02:39
PROVIDERS: PCP Internal Medicine; Visit Provider Internal Medicine Hematology & Oncology
DX: C83.30 Diffuse large B-cell lymphoma, unspecified site (principal); Z45.2 Encounter for adjustment and management of vascular access device
CPT/HCPCS: 36415; 36591; 80053; 83615; 85025

== ENCOUNTER 2021-12-03 04:09 | Outpatient (CLI) | payer MEDICARE, OTHER, SELFPAY | END 2021-12-03 04:10 | disposition home or self-care (01) | LOC: LBO 04:09 | PROVIDERS: PCP Internal Medicine; Visit Provider Internal Medicine Hematology & Oncology ==

== ENCOUNTER 2021-12-11 02:50 | Outpatient (CLI) | payer MEDICARE, OTHER, SELFPAY ==
[2021-12-12 11:32] LABS: COVID-19 RT-PCR UVMMC Result Negative (Negative)
== END 2021-12-11 02:51 | disposition home or self-care (01) ==
LOC: LBO 02:50
PROVIDERS: PCP Internal Medicine; Visit Provider Internal Medicine Hematology & Oncology
DX: Z20.822 Contact with and (suspected) exposure to COVID-19 (principal); C83.30 Diffuse large B-cell lymphoma, unspecified site; Z01.818 Encounter for other preprocedural examination
CPT/HCPCS: U0003; U0005

== ENCOUNTER 2021-12-19 02:01 | Outpatient (RCR) | payer MEDICARE, OTHER, SELFPAY ==
[2021-12-19] MEDS: Normal Saline Flush 10 ML SYR IVP (08:47)
[2021-12-19 08:56] LABS: Abs Immature Grans 0.09 10^3/uL (0.0-0.06); Absolute Eosinophil Count 0.04 10^3/uL (0.0-0.7); Absolute Lymphocyte Count 1.65 10^3/uL (1.2-3.4); Absolute Monocyte Count 0.99 10^3/uL (0.1-0.8); Basophils % 0.9; Eosinophils % 0.4; HCT 40.3 % (40.0-50.0); HGB 13.5 g/dL (13.5-17.5); Immature Grans % 0.8; Lymphocytes % 15.3; MCH 32.7 pg (27.0-33.0); MCHC 33.5 % (32.0-36.0); MCV 97.6 fL (80-95); Monocytes % 9.2; Neutrophils % 73.4; Platelet Count 336 10^3/uL (130-400); RBC 4.13 10^6/uL (4.36-5.78); RDW-SD 53.5 fL; WBC 10.77 10^3/uL (4.4-10.8)
[2021-12-19 09:07] LABS: ALT 41 U/L (16-63); AST 24 U/L (15-37); Albumin 3.5 g/dL (3.4-5.0); Alkaline Phosphatase 100 U/L (46-116); Anion Gap 4.2 mmol/L (3-11); BUN 11 mg/dL (7-18); Bilirubin, Total 0.4 mg/dL (0.2-1.0); CO2 27.8 mmol/L (21.0-32.0); CREATININE 0.7 mg/dL (0.70-1.30); Calcium 8.9 mg/dL (8.5-10.1); Chloride 107 mmol/L (98-107); Glucose 123 mg/dL (74-106); LDH 189 U/L (85-227); Potassium 4.1 mmol/L (3.5-5.1); Sodium 139 mmol/L (136-145); Total Protein 6.4 g/dL (6.4-8.2)
== END 2021-12-29 23:59 | disposition home or self-care (01) ==
LOC: INF 02:01
PROVIDERS: PCP Internal Medicine; Visit Provider Internal Medicine Hematology & Oncology
DX: C83.30 Diffuse large B-cell lymphoma, unspecified site (principal); Z45.2 Encounter for adjustment and management of vascular access device; Z29.8 Encounter for other specified prophylactic measures; D84.821 Immunodeficiency due to drugs; Z79.899 Other long term (current) drug therapy
CPT/HCPCS: 36591; 80053; 96372; Q0221; 83615; 85025

== ENCOUNTER 2022-01-02 18:55 | Outpatient (CLI) | payer MEDICARE, OTHER, SELFPAY ==
[2022-01-02 16:33] LABS: Abs Immature Grans 0.41 10^3/uL (0.0-0.06); Basophils % 0.8; Eosinophils % 0.1; HCT 41.9 % (40.0-50.0); HGB 13.7 g/dL (13.5-17.5); Immature Grans % 2.9; Lymphocytes % 7.1; MCH 31.7 pg (27.0-33.0); MCHC 32.7 % (32.0-36.0); MCV 97 fL (80-95); MPV 9.4 fL (8.0-11.0); Monocytes % 7.1; Platelet Count 135 10^3/uL (130-400); RBC 4.32 10^6/uL (4.36-5.78); RDW 14.7 % (11.8-14.1); RDW-SD 52.2 fL; WBC 14.32 10^3/uL (4.4-10.8)
[2022-01-02 16:36] LABS: Absolute Basophil Count 0.11 10^3/uL (0.0-0.2); Absolute Eosinophil Count 0.01 10^3/uL (0.0-0.7); Absolute Lymphocyte Count 1.02 10^3/uL (1.2-3.4); Absolute Neutrophil Count 11.74 10^3/uL (1.2-6.7)
[2022-01-02 16:37] LABS: Absolute Monocyte Count 1.02 10^3/uL (0.1-0.8)
== END 2022-01-02 18:56 | disposition home or self-care (01) ==
LOC: LBO 18:56
PROVIDERS: PCP Internal Medicine; Visit Provider Internal Medicine Hematology & Oncology
DX: C83.30 Diffuse large B-cell lymphoma, unspecified site (principal)
CPT/HCPCS: 36415; 85025

== ENCOUNTER 2022-01-16 21:05 | Emergency (ER) | payer MEDICARE, OTHER, SELFPAY ==
[2022-01-16] VITALS (11 sets, daily range): BP systolic 89–135; BP diastolic 22–70; PULSE 104–120; RESP 18–38; TEMP 36.8; O2SAT 91–96
--- NOTE | 2022-01-16 21:15 | RT.EKG_ITS ---
APPROVED REPORT Exam: Resting ECG Reason for Exam: chest pain Patient Location: E HR:117 bpm ECG Measurements Heart Rate 117 AXIS MA 162 P 26 QRSd 83 QRS 32 QT 310 T 32 QTc 430 Conclusion Sinus tachycardia...rate> 99 Atrial premature complex...SV complex w/ short R-R interval sinus tachycardia, normal axis, normal intervals
--- NOTE | 2022-01-16 22:45 | DI.RAD_ITS ---
Exam(s) XR PORTABLE CHEST AP EXAM: XR PORTABLE CHEST AP CLINICAL HISTORY: cough, fatigue, lymphoma TECHNIQUE: 2D digital imaging was performed of the chest. One image was obtained. An AP view was ob tained. COMPARISON: CR,XR XR PORTABLE CHEST AP from 09/10/2021 FINDINGS: MEDIASTINUM: Normal. HEART: Normal. PULMONARY VASCULATURE: Normal. LUNGS: There is a new opacity in the right mid lung. The left lung is clear. PLEURAL SPACE: No pleural effusion or pneumothorax. BONE:Within normal limits for the patient's age. OTHER FINDINGS:The tip of the central venous catheter is in good position near the junction of the tracey perior vena cava and right atrium. IMPRESSION: Airspace opacity in the right mid lung. Please refer to the CT scan of the chest for complete detail s. DATA REPOSITORY: RADIATION DOSE DELIVERED:
--- NOTE | 2022-01-16 23:43 | W.ED.GENAD ---
Discharge Plan Disposition Patient Disposition: HOME Condition: Serious Discharge Details Clinical Impression: Mass of lung, Pneumonia, Acute hypokalemia, Abnormal partial thromboplastin time (PTT) Primary Care Provider: Hannah Silvestre ED Provider: Marcial Valdez Home Meds and New Rx's Prescriptions: New levofloxacin 750 mg tablet 750 mg PO DAILY Qty: 14 0RF Continued atorvastatin 10 mg Tablet 10 mg PO QPM Qty: 30 0RF pantoprazole 40 mg Tablet,Delayed Release (Dr/Ec) 40 mg PO DAILY@0730 Qty: 30 1RF aspirin 81 mg Tablet,Chewable 81 mg PO DAILY Qty: 0 0RF Metamucil Sugar-Free (aspart) 3.4 gram/5.8 gram Powder 1 ea PO BID Qty: 0 0RF Discharge Instructions Instructions: Pneumonia (ED) Additional Instructions: At this time you have a notable infection, a significant pneumonia, and a new mass in your lungs. Your oxygenation level are not great either. As we discussed together it is my recommendation that you stay overnight for continued monitoring, IV antibiotic, and/or potential transfer to [facility]. As we discussed together it is your wish to go home this evening, fully understanding the risk that this may entail, including or lifelong disability. From a more personal perspective, there is also a significantly increased chance that if you become more unwell at home it could have been preventable, and additional illness will not benefit your overall prognosis with managing and combating your malignancy. In spite of this, it is still your wish to go home. It is vitally important that you follow-up promptly with your [facility] medical team. I have given you an extra pill of levofloxacin which I want you to take tomorrow as the antibiotic for further treatment, although this is less ideal than inpatient admission and IV antibiotics. Additionally I have sent a prescription to your pharmacy of the antibiotic for a full course until you decide to return or go to [facility]. Additionally, your potassium levels were lower than normal. Please make sure you are eating a diet high in As we discussed together, our doors are always open, you can return at any moment for reevaluation and inpatient admission. Additionally please do not hesitate to call me here in the emergency department tonight or any night but I am working to discuss your symptoms. If you notice any worsening of your symptoms, or any new symptoms such as vomiting, diarrhea, fever, chills, shortness of breath, chest pain, numbness, weakness, or fainting , please return immediately to the emergency department for reevaluation. Please follow up with your primary care provider as soon as possible for reassessment and reevaluation. As always, it was a pleasure participating in your medical care today. . Referrals: Hannah Silvestre [Primary Care Provider] - Medical Decision Making <Fred Anderson MD - Last Filed: 01/17/22 00:27> 71-year-old male history of non-Hodgkin's lymphoma currently undergoing chemotherapy radiation, presents with tachycardia fatigue feeling dry, dry oral mucosa, tachycardia no peripheral edema lungs clear bilaterally, no hypoxia. No history of thromboembolic disease. EKG sinus tachycardia. Consider dehydration versus lecture abnormality versus viral syndrome such as COVID or influenza versus pneumonia versus metastatic disease versus less likely ACS or PE versus less likely CHF or COPD. Screening labs imaging fluids close reassessment symptomatology consider home with close follow-up versus admission pending result 12: 26 x-ray concerning for mass lesion right lung versus pneumonia. CT chest is been ordered. Counseled patient regarding findings. Patient endorses he would most likely prefer to follow-up with outpatient oncologist regardless of his results. Stable from a respiratory standpoint no hypoxia no tachypnea. Tachycardia and hypertension likely due to discomfort. Offered pain medication patient would like to wait as he <Marcial Valdez DO - Last Filed: 01/17/22 03:29> 71-year-old male history of non-Hodgkin's lymphoma currently undergoing chemotherapy radiation, presents with tachycardia fatigue feeling dry, dry oral mucosa, tachycardia no peripheral edema lungs clear bilaterally, no hypoxia. No history of thromboembolic disease. EKG sinus tachycardia. Consider dehydration versus lecture abnormality versus viral syndrome such as COVID or influenza versus pneumonia versus metastatic disease versus less likely ACS or PE versus less likely CHF or COPD. Screening labs imaging fluids close reassessment symptomatology consider home with close follow-up versus admission pending result 12: 26 x-ray concerning for mass lesion right lung versus pneumonia. CT chest is been ordered. Counseled patient regarding findings. Patient endorses he would most likely prefer to follow-up with outpatient oncologist regardless of his results. Stable from a respiratory standpoint no hypoxia no tachypnea. Tachycardia and hypertension likely due to discomfort. Offered pain medication patient would like to wait as he Dr. Valdez's documentation Patient was signed out to me by Dr. Deirdre Laguerre. Please refer to his HPI, physical exam, assessment and plan. At time of signout we are pending imaging. Patient CT scan has returned and he does demonstrate large area in his chest which seems to be a combination of pneumonia and lung lesion/mass. Patient does have an elevated white count of 25, he does have a left shift, but no bands. Potassium is slightly low at 2.9, this was corrected with IV and oral potassium. Troponin is normal. proBNP is normal. Patient's oxygenation hovers around the mid 90s. Heart rate is slightly improved to 110 to low 100s. I had a long discussion with the patient and recommended that the patient be admitted for IV antibiotic and continued monitoring. At this time patient has declined this, would like to go home. He states that he wants to go home to sleep at home tonight, and will follow-up at [facility] tomorrow. I discussed with him my willingness to consult [facility] for transfer, the patient was also unwilling to do this this evening. I had an extended conversation with the patient discussing his white count, his elevated PTT, he is pneumonia and mass, there is low potassium, and his borderline oxygenation levels, diabetes very clear that his best prognosis would be if he was able to be admitted and monitored for IV antibiotics. Patient is of a appropriate age to make decisions. The patient is of sound mind, appears clinically sober, and has capacity to make decisions by my clinical exam. We have provided options for treatment and discussed the risks and benefits of these options and refusing these options, including and disability specific to the patient's pathology. Patient is able to discuss the risks and benefits and alternatives of treatment and refusing treatment. The patient chooses to leave before evaluation and treatment is complete AGAINST MEDICAL ADVICE. The patient did leave on good terms, fully understanding his choice and decision and what it entails. Prior to discharge she was willing to allow us to give IV levofloxacin, as well as oral and IV potassium. Although this is not an ideal treatment pathway, we will also give him a prescription for Levaquin on an outpatient basis. Unequivocally clear with the patient that he can return at any time for admission, and he can also call or contact me at any time if we can further discuss his options. I have extensively reviewed the treatment plan and discharge instructions with the patient. I have addressed all patient concerns at this time. The patient was made aware of what symptoms to monitor for that would warrant a return to the emergency department. Discussed the plan with the patient, they demonstrate verbal understanding and agreement with our assessment and plan at this time. The documentation in this chart was dictated using [employer] dictation software. Please excuse any dictation errors. FINDINGS: Tubes, catheters and devices: Right chest port in satisfactory position. Lungs: Mild pulmonary emphysema similar to prior. Chronic appearing mild bilateral subpleural predominant interstitial disease and or fibrotic disease similar to prior. New moderate to severe space consolidation, right middle and right upper lobes. There is involvement of the right major fissure. Air bronchograms are present. As on the plain film, the more peripheral portion of this region is somewhat more rounded and masslike 5 x 5 cm. Interlobular septal thickening surrounding this region. There could be some tiny surrounding/satellite nodules. Pleural spaces: Trace bilateral pleural fluid new since prior. No pneumothorax. Heart: No cardiomegaly. No pericardial effusion. Lymph nodes: Mildly prominent subcarinal lymph node slightly increased in volume since prior. Vasculature: Stable mild dilation of the ascending aorta. Diaphragm: Tiny hiatal hernia Liver: Benign-appearing hepatic cysts and probable cysts. Bones/joints: No acute fracture. Soft tissues: Gynecomastia. IMPRESSION: 1. Right airspace consolidation as above, remains difficult to characterize on CT. Air bronchograms suggest pneumonia. Involvement of the major fissure, surrounding interlobular septal thickening and suspected small satellite nodules point toward malignancy. Consider tissue sampling if clinically indicated. 2. Trace bilateral pleural fluid new since prior. Thank you for allowing us to participate in the care of your patient. Dictated and Authenticated by: Huyen North MD 01/17/2022 12:59 AM Eastern Time ([place] & [place]) HPI <Fred Anderson MD - Last Filed: 01/17/22 00:27> General Date/Time Provider Initiated Documentation: 01/16/22 22:22. HPI Narrative: 71-year-old male history of non-Hodgkin lymphoma currently undergoing chemotherapy and radiation presents with generalized fatigue cough also feeling dehydrated; denies leg swelling or pain denies history of thromboembolic disease Related Data Home Medications Medication Instructions Recorded Confirmed aspirin 81 mg chewable tablet 81 mg PO DAILY #0 tabs 09/17/21 01/16/22 atorvastatin 10 mg tablet 10 mg PO QPM #30 tabs 09/17/21 01/16/22 pantoprazole 40 mg tablet,delayed 40 mg PO DAILY@0730 #30 tabs 09/17/21 10/23/21 release psyllium husk (aspartame) 3.4 1 ea PO BID #0 grams 09/17/21 10/23/21 gram/5.8 gram oral powder (Metamucil Sugar-Free (aspartame)) levofloxacin 750 mg tablet 750 mg PO DAILY #14 tabs 01/17/22 Previous Rx's Medication Instructions Recorded aspirin 81 mg chewable tablet 81 mg PO DAILY #0 tabs 09/17/21 atorvastatin 10 mg tablet 10 mg PO QPM #30 tabs 09/17/21 pantoprazole 40 mg tablet,delayed 40 mg PO DAILY@0730 #30 tabs 09/17/21 release psyllium husk (aspartame) 3.4 1 ea PO BID #0 grams 09/17/21 gram/5.8 gram oral powder (Metamucil Sugar-Free (aspartame)) levofloxacin 750 mg tablet 750 mg PO DAILY #14 tabs 01/17/22 Allergies Allergy/AdvReac Type Severity Reaction Status Date / Time No Known Allergies Allergy Unverified 10/23/21 12:29 General Stated Complaint: GenMedical WALLY: 3 Review of Systems <Fred Anderson MD - Last Filed: 01/17/22 00:27> Narrative: Review of Systems Constitutional: Fatigue Eyes: negative ENT: negative Cardiovascular: negative Respiratory: Cough Gastrointestinal: negative : negative Musculoskeletal: negative Skin: negative Neurologic: negative Psych: negative PFSH <Fred Anderson MD - Last Filed: 01/17/22 00:27> All Active Problems (Updated 01/17/22 @ 03:29 by Marcial Valdez DO) Mass of lung (Acute) Pneumonia (Acute) Acute hypokalemia (Acute) Abnormal partial thromboplastin time (PTT) (Acute) Drug-induced pneumonitis (Acute) NHL (non-Hodgkin's lymphoma) (Chronic) Lymphoma (Acute) Hemorrhagic pericardial effusion (Acute) CHF (congestive heart failure) (Chronic) Ascites (Acute) Social History Smoking/Tobacco Use Status: Former Tobacco Use Smoking risk assessment performed?: Yes Drug use: Never Substance use type: does not use Do you feel safe in your relationship?: Yes Exam <Fred Anderson MD - Last Filed: 01/17/22 00:27> Narrative Exam Narrative: Physical Examination General: alert, awake, cooperative, resting comfortably, no acute distress HEENT: normocephalic, atraumatic; PERRL, EOM intact, conjunctiva normal; no nasal discharge; drying of oral mucosa Neck: supple, trachea midline; full ROM Chest: normal to inspection Respiratory: normal respiratory effort, speaking in full sentences, clear lung mendiola left lung mendiola, clear right upper lung mendiola, mid to lower right anterior lung quiet Cardiac: Tachycardia, regular rhythm, S1S2 intact, no murmurs rubs or gallops GI: abdomen soft, non-tender, non-distended; no palpable mass or hepatosplenomegaly Skin: no lesions, rashes or trauma appreciated Neuro: AAOx3, normal speech, moving all extremities Extremities: No peripheral edema Psych: Appropriate mood and affect Course <Fred Anderson MD - Last Filed: 01/17/22 00:27> Vital Signs Vital signs: Vital Signs Temperature 36.8 C 01/16/22 21:15 Pulse 120 H 01/16/22 21:15 Respiratory Rate 18 01/16/22 21:15 Blood Pressure 129/65 01/16/22 21:15 Pulse Oximetry 95 01/16/22 21:15 Temperature 36.8 C 01/16/22 21:15 Temperature Source Skin 01/16/22 21:15 Pulse 120 H 01/16/22 21:15 Respiratory Rate 18 01/16/22 21:20 Respiratory Effort Non-Labored 01/16/22 21:20 Respiratory Depth Normal 01/16/22 21:20 Respiratory Pattern Normal 01/16/22 21:20 Blood Pressure 129/65 01/16/22 21:15 Pulse Oximetry 95 01/16/22 21:15 Oxygen Delivery Method Room Air 01/16/22 21:15 Oxygen Flow Rate 0 01/16/22 21:15 Pain Level 0 01/16/22 21:15 Lab/Test Results Lab/Test Results: 01/16/22 22:54 Blood Blood Culture - Pending 01/16/22 22:54 Blood Blood Culture - Pending Sign Out <Fred Anderson MD - Last Filed: 01/17/22 00:27> Sign Out Data: Sign Out Comment: pending CT chest, mass v pneumonia; fluids labs reassess; home with onc f/u v admit Last updated by Fred Anderson MD at 01/17/22 00:15
--- NOTE | 2022-01-16 23:45 | DI.CT_ITS ---
Exam(s) CT CHEST WO EXAM: CT CHEST WO CLINICAL HISTORY: lung mass v pneumoniua right lung, hx of lymphoma. TECHNIQUE: Imaging protocol: Axial computed tomography images were obtained and coronal and sagittal reformatted images were created and reviewed. COMPARISON: CT CT CHEST PE ABD PELVIS W from 07/28/2021 CR,XR XR PORTABLE CHEST AP from 09/10/[address] CHEST WO from 10/23/2021 CR,XR XR PORTABLE CHEST AP from 01/16/2022 FINDINGS: Tracheobronchial tree: Patent where visualized. Pulmonary parenchyma: There are does appear to be chronic pulmonary fibrosis. There is a new area of consolidation involving the right upper and right middle lobe. Air bronchograms are present. There is a fluid attenuation component inferiorly. This may be fluid within the fissure but an area of ne crosis or abscess cannot be excluded. This rounded area measures approximately 5 cm in diameter. No architectural distortion. Mediastinum and Kayley: There is a 1.2 x 2.6 cm subcarinal lymph node. The esophagus is unremarkable.S mall hiatal hernia. Thyroid gland: Unremarkable. Pleura: Mild pleural thickening or small pleural effusions bilaterally. No pneumothorax. Heart: The heart is not dilated. No coronary artery calcifications are seen. No pericardial effusion. Aorta: Thoracic aorta non-dilated. Atherosclerosis. Upper abdomen: Stable hepatic cysts. Lymph nodes: Within normal limits. Tubes, Catheters, and Lines: The patient has a Port-A-Cath. The tip is in good position at the caval atrial junction. Soft tissues: Bilateral gynecomastia. Bones:Within normal limits for the patient's age. IMPRESSION: 1. New airspace consolidation involving the right upper and middle lobes with air bronchograms sugges ting pneumonia. There does appear to be a rounded component centered around the fissure which shows decreased attenuation centrally. This may represent fluid within the fissure, abscess or possible ne crotic mass. A neoplastic process cannot be excluded. Consider tissue sampling, if clinically indic ated. 2. Mildly enlarged subcarinal lymph node. 3. Small pleural effusions versus pleural thickening. RADIATION DOSE DELIVERED: 444.95mGy.cm Total DLP 444.95mGy.cm Total DLP DATA REPOSITORY: All CT scans at this facility are submitted to the National Radiology Data Registry (NRDR) Dose Index Registry (DIR) with the [employer] (ACR). RADIATION OPTIMIZATION: All CT scans at this facility use at least one of these dose optimization te chniques: automated exposure control; mA and/or kV adjustment per patient size (includes targeted exa ms where dose is matched to clinical indication); or iterative reconstruction.
--- NOTE | 2022-01-16 23:56 | DI.VRAD_ITS ---
PROCEDURE INFORMATION: Exam: XR Chest Exam date and time: 01/16/2022 22:52 Age: 71 years old Clinical indication: Other: Cough fatigue lymphoma TECHNIQUE: Imaging protocol: XR of the chest. Views: 1 view. COMPARISON: CT CHEST WO 10/23/2021 11:57 FINDINGS: Tubes, catheters and devices: Right chest port in satisfactory position. Lungs: Airspace disease in the right mid to lower lung zone moderate to severe and increased in density since prior. On the lateral aspect there is a somewhat denser rounded region measuring up to 5 cm with a mass difficult to exclude at this location. Generalized mild interstitial thickening however appears improved since prior. Pleural spaces: No pleural effusion. No pneumothorax. Heart/Mediastinum: No cardiomegaly. Bones/joints: No acute fracture. IMPRESSION: Worsening right-sided airspace disease as above. Probably pneumonia, masslike lesion difficult to exclude in the right lung base. Dictated and Authenticated by: Huyen North MD. Ordering:SHAVON Ibarra MD
[2022-01-17] VITALS: BP 138/100; PULSE 111; PULSE 113; RESP 32; O2SAT 93
[2022-01-17 00:05] LABS: Abs Immature Grans 0.34 10^3/uL (0.0-0.06); Absolute Monocyte Count 1.89 10^3/uL (0.1-0.8); Basophils % 0.3; HCT 34.4 % (40.0-50.0); HGB 11.4 g/dL (13.5-17.5); Immature Grans % 1.3; Lymphocytes % 3.9; MCH 31.6 pg (27.0-33.0); MCHC 33.1 % (32.0-36.0); MCV 95 fL (80-95); MPV 9.2 fL (8.0-11.0); Monocytes % 7.5; Platelet Count 316 10^3/uL (130-400); RBC 3.61 10^6/uL (4.36-5.78); RDW 13.8 % (11.8-14.1); RDW-SD 48.8 fL
[2022-01-17] MEDS: Normal Saline 1,000 ML 1000 ML IV (00:05)
[2022-01-17 00:18] LABS: Absolute Basophil Count 0.08 10^3/uL (0.0-0.2); Absolute Lymphocyte Count 0.98 10^3/uL (1.2-3.4); Absolute Neutrophil Count 21.96 10^3/uL (1.2-6.7); WBC 25.24 10^3/uL (4.4-10.8)
[2022-01-17 00:31] LABS: ALT 41 U/L (16-63); AST 31 U/L (15-37); Albumin 1.9 g/dL (3.4-5.0); Alkaline Phosphatase 89 U/L (46-116); Anion Gap 11.9 mmol/L (3-11); BUN 11 mg/dL (7-18); Bilirubin, Total 0.7 mg/dL (0.2-1.0); CO2 24.1 mmol/L (21.0-32.0); CREATININE 0.7 mg/dL (0.70-1.30); Calcium 7.6 mg/dL (8.5-10.1); Chloride 100 mmol/L (98-107); Glucose 143 mg/dL (74-106); NT-proBNP 220 pg/mL (<300); Sodium 136 mmol/L (136-145); Total Protein 5.6 g/dL (6.4-8.2); Troponin I < 50 ng/L (<or=60)
[2022-01-17 00:34] LABS: Diff Comment Agrees w/ Instrument
[2022-01-17 00:37] LABS: RBC Morphology Normal
[2022-01-17 00:51] LABS: Potassium 2.9 mmol/L (3.5-5.1)
--- NOTE | 2022-01-17 00:59 | DI.VRAD_ITS ---
PROCEDURE INFORMATION: Exam: CT Chest Without Contrast; Diagnostic Exam date and time: 01/17/2022 00:49 Age: 71 years old Clinical indication: Abnormal findings; Other: Lung mass vs. Pneumonia; Patient HX: HX lymphoma TECHNIQUE: Imaging protocol: Diagnostic computed tomography of the chest without contrast. 3D rendering (Not supervised by radiologist): MIP and/or 3D reconstructed images were created by the technologist. Radiation optimization: All CT scans at this facility use at least one of these dose optimization techniques: automated exposure control; mA and/or kV adjustment per patient size (includes targeted exams where dose is matched to clinical indication); or iterative reconstruction. COMPARISON: CT CHEST WO 10/23/2021 11:57 FINDINGS: Tubes, catheters and devices: Right chest port in satisfactory position. Lungs: Mild pulmonary emphysema similar to prior. Chronic appearing mild bilateral subpleural predominant interstitial disease and or fibrotic disease similar to prior. New moderate to severe space consolidation, right middle and right upper lobes. There is involvement of the right major fissure. Air bronchograms are present. As on the plain film, the more peripheral portion of this region is somewhat more rounded and masslike 5 x 5 cm. Interlobular septal thickening surrounding this region. There could be some tiny surrounding/satellite nodules. Pleural spaces: Trace bilateral pleural fluid new since prior. No pneumothorax. Heart: No cardiomegaly. No pericardial effusion. Lymph nodes: Mildly prominent subcarinal lymph node slightly increased in volume since prior. Vasculature: Stable mild dilation of the ascending aorta. Diaphragm: Tiny hiatal hernia. Liver: Benign-appearing hepatic cysts and probable cysts. Bones/joints: No acute fracture. Soft tissues: Gynecomastia. IMPRESSION: 1. Right airspace consolidation as above, remains difficult to characterize on CT. Air bronchograms suggest pneumonia. Involvement of the major fissure, surrounding interlobular septal thickening and suspected small satellite nodules point toward malignancy. Consider tissue sampling if clinically indicated. 2. Trace bilateral pleural fluid new since prior. Dictated and Authenticated by: Huyen North MD. Ordering:SHAVON Ibarra MD
[2022-01-17 01:16] LABS: INR 2.4 (0.9-1.1); Prothrombin Time 23.5 sec (9.3-11.0)
[2022-01-17 01:20] VITALS: O2SAT 92
[2022-01-17 01:27] LABS: COVID-19 PCR Negative (Negative); Influenza A PCR Negative (Negative); Influenza B PCR Negative (Negative); RSV PCR Negative (Negative)
[2022-01-17 01:28] LABS: Source Nasopharynx
[2022-01-17] MEDS: Potassium Chloride 20 MEQ TABCR 40 MEQ PO (01:40)
[2022-01-17] MEDS: levoFLOXacin 750 MG/150 ML BAG 100 MG IVPB (01:41)
[2022-01-17] MEDS: POTASSIUM CHLORIDE 10 MEQ/100 ML BAG 100 MEQ IVPB (01:45)
--- NOTE | 2022-01-17 01:56 | NUR.NOTE ---
Nursing Note: Pt requested for the monitor to be turned off. Does not want to be on monitoring due to the increased beeping. Pt still requesting to go home after is one time does of IV Levaquin and 10 meq K IV. 40 meq PO K given(K- 2.9). Pt states that he is willing to stay for a few more hours for IV medications but will like to be discharged after. Pt comfortable on the stretcher VSS.
[2022-01-17] MEDS: levoFLOXacin 500 MG, levoFLOXacin 250 MG 750 MG PO (03:19)
[2022-01-17] MEDS: Heparin 500 UNITS/5 ML SYRINGE IVP (03:19)
[2022-01-17 03:27] VITALS: BP 136/68; PULSE 118; RESP 22; TEMP 36.6; O2SAT 93
[2022-01-17 03:44] LABS: Bilirubin Small (Negative); Blood Negative (Negative); Clarity Clear (Clear); Glucose Negative (Negative); Ketones 80 mg/dL (Negative); Leukocyte Esterase Negative (Negative); Nitrite Negative (Negative); Specific Gravity >= 1.030 (1.005-1.025); Urobilinogen >=8.0 EU/dL (Up TO 0.2)
[2022-01-17 04:28] LABS: Bacteria Negative HPF (Negative); C & S Indicated? No; Casts Negative LPF (Negative); Crystals Negative HPF (Negative); Epithelial Cells Negative HPF (Negative); Mucus Heavy (Negative); RBC Negative HPF (0-2); WBC 0-2 HPF (0-5)
== END 2022-01-17 03:43 | disposition home or self-care (01) ==
PROVIDERS: Emergency Medicine; Emergency Provider Student in an Organized Health Care Education/Training Program; PCP Internal Medicine
DX: R91.8 Other nonspecific abnormal finding of lung field (principal); J18.9 Pneumonia, unspecified organism; E87.6 Hypokalemia; R79.1 Abnormal coagulation profile; Z20.822 Contact with and (suspected) exposure to COVID-19
CPT/HCPCS: 36415; 71250; 80053; 87040; 87637; 93005; 96361; 96365; 96368; 99284; 71045; 81003; 81015; 83880; 84484; 85025; 85610; 85730; 93010; J1956; J3480

== ENCOUNTER 2022-02-13 02:02 | Outpatient (RCR) | payer MEDICARE, OTHER, SELFPAY ==
[2022-02-13] MEDS: Heparin 500 UNITS/5 ML SYRINGE IV (10:01)
[2022-02-13] MEDS: Normal Saline Flush 10 ML SYR IVP (10:01)
[2022-02-13 10:09] LABS: Abs Immature Grans 0.04 10^3/uL (0.0-0.06); Absolute Basophil Count 0.05 10^3/uL (0.0-0.2); Absolute Eosinophil Count 0.32 10^3/uL (0.0-0.7); Absolute Monocyte Count 0.69 10^3/uL (0.1-0.8); Absolute Neutrophil Count 5.58 10^3/uL (1.2-6.7); Basophils % 0.5; Eosinophils % 3.4; HCT 37.8 % (40.0-50.0); HGB 12.2 g/dL (13.5-17.5); Immature Grans % 0.4; Lymphocytes % 28.8; MCH 30.3 pg (27.0-33.0); MCHC 32.3 % (32.0-36.0); MCV 94 fL (80-95); MPV 8.8 fL (8.0-11.0); Monocytes % 7.4; Neutrophils % 59.5; Platelet Count 206 10^3/uL (130-400); RBC 4.02 10^6/uL (4.36-5.78); RDW 15.8 % (11.8-14.1); RDW-SD 54.8 fL; WBC 9.38 10^3/uL (4.4-10.8)
[2022-02-13 10:24] LABS: ALT 30 U/L (16-63); AST 25 U/L (15-37); Albumin 3.5 g/dL (3.4-5.0); Alkaline Phosphatase 108 U/L (46-116); Anion Gap 9.5 mmol/L (3-11); BUN 23 mg/dL (7-18); Bilirubin, Total 0.6 mg/dL (0.2-1.0); CO2 25.5 mmol/L (21.0-32.0); CREATININE 0.9 mg/dL (0.70-1.30); Chloride 104 mmol/L (98-107); Glucose 135 mg/dL (74-106); LDH 175 U/L (85-227); Potassium 4.5 mmol/L (3.5-5.1); Sodium 139 mmol/L (136-145); Total Protein 6.9 g/dL (6.4-8.2)
== END 2022-02-28 23:59 | disposition home or self-care (01) ==
LOC: INF 02:02
PROVIDERS: PCP Internal Medicine; Visit Provider Internal Medicine Hematology & Oncology
DX: C83.30 Diffuse large B-cell lymphoma, unspecified site (principal); Z45.2 Encounter for adjustment and management of vascular access device
CPT/HCPCS: 36591; 80053; 83615; 85025

== ENCOUNTER → 2022-03-12 01:36 | Outpatient (CLI) | payer MEDICARE, OTHER, SELFPAY ==
--- NOTE | 2022-03-12 07:45 | DI.CT_ITS ---
Exam(s) CT CHEST WO EXAM: CT CHEST WO CLINICAL HISTORY: f/u LUNG ABSCESS AFTER TREATMENT, J85.2. TECHNIQUE: Imaging protocol: Axial computed tomography images were obtained and coronal and sagittal reformatted images were created and reviewed. COMPARISON: CT CT CHEST PE ABD PELVIS W from 07/28/[address] CHEST WO from 01/17/2022 FINDINGS: Tracheobronchial tree: Patent where visualized. Pulmonary parenchyma: No consolidation or dominant measurable mass. Mild interstitial fibrosis is pre sent. The complex fluid collection has resolved. There is mild pleural and parenchymal scarring pre sent along the right fissure. Mediastinum and Kayley: No dominant adenopathy or fluid collection. The esophagus is unremarkable.Small hiatal hernia. Thyroid gland: Subcentimeter right thyroid nodule. No follow-up is recommended. Pleura: Please see the above discussion. No pleural effusion or pneumothorax is present. Heart: The heart is not dilated. No coronary artery calcifications are seen. No pericardial effusion. Aorta: Thoracic aorta non-dilated. Atherosclerosis. Upper abdomen: Stable hepatic cysts. Lymph nodes: Within normal limits. Tubes, Catheters, and Lines: There is an indwelling central venous catheter. The tip is in good posi tion at the junction of the superior vena cava and right atrium. Soft tissues: Mild bilateral gynecomastia. Bones:Within normal limits for the patient's age. IMPRESSION: 1. Resolution of the right pulmonary abscess. Mild pleural and parenchymal scarring along the right fissure. 2. No acute pulmonary process. RADIATION DOSE DELIVERED: 502.39mGy.cm Total DLP 502.39mGy.cm Total DLP DATA REPOSITORY: All CT scans at this facility are submitted to the National Radiology Data Registry (NRDR) Dose Index Registry (DIR) with the [employer] (ACR). RADIATION OPTIMIZATION: All CT scans at this facility use at least one of these dose optimization te chniques: automated exposure control; mA and/or kV adjustment per patient size (includes targeted exa ms where dose is matched to clinical indication); or iterative reconstruction.
== END ==
PROVIDERS: PCP Internal Medicine; Visit Provider Student in an Organized Health Care Education/Training Program
DX: J85.2 Abscess of lung without pneumonia (principal); J98.4 Other disorders of lung
CPT/HCPCS: 71250

== ENCOUNTER 2022-05-14 12:13 | Emergency (ER) | payer MEDICARE, OTHER, SELFPAY ==
[2022-05-14 12:17] VITALS: BP 120/73; PULSE 98; RESP 16; TEMP 36.8; O2SAT 98
--- NOTE | 2022-05-14 12:39 | ED.GENADUL_ITS ---
Discharge Plan Disposition Patient Disposition: HOME Condition: Stable Discharge Details Clinical Impression: Ear pain, right Primary Care Provider: Hannah Silvestre ED Provider: Debbie Wellington Home Meds and New Rx's Prescriptions: New amoxicillin-pot clavulanate 875-125 mg tablet 1 tab PO BID 5 Days Qty: 10 0RF No Action gabapentin 300 mg capsule 300 mg PO TID Discharge Instructions Instructions: Earache (ED) Additional Instructions: Use Flonase which you can obtain [id number] 1 or 2 puffs to each nostril once daily for the next 7 days. There is no foreign body noted in the ear canal. It does not appear infected at this time no redness or bulging. However it does appear to have some fluid behind the tympanic membrane. However I will prescribe you an antibiotic for the next 5 days. Referrals: Hannah Silvestre [Primary Care Provider] - 5 days Discharge Data Discharge Date/Time-TO BE ENTERED AT DEPARTURE: 05/14/22 13:10 Medical Decision Making 72-year-old male complaining of right ear pain which has been present for the last week. He reports intermittent pain and feeling like something is coming around there. There is no erythema no bulging, there is loss of landmarks and dullness. No foreign body noted in the ear. Posterior oropharynx within normal limits. Patient has a past medical history of non-Hodgkin's lymphoma, pericardial effusion, congestive heart failure, lung abscess. Patient is requesting antibiotics. I did discuss with him that I am hesitant to give him antibiotics due to no signs of infection, however due to patient's comorbidities, he is requesting antibiotics. I did discuss using Flonase which he can get [id number]. Augmentin prescribed. This text was generated using [employer] system, please disregard any oddities of phrase or misspellings. HPI General Mode of arrival: ambulatory . Date/Time Provider Initiated Documentation: 05/14/22 12:26 . Limitations to Documentation: no limitations . Information obtained by: patient, RN notes reviewed and old records reviewed . HPI Narrative: 72-year-old male complaining of right ear pain which has been present for the last week. He reports intermittent pain and feeling like something is coming around there. There is no erythema no bulging, there is loss of landmarks and dullness. No foreign body noted in the ear. Posterior oropharynx within normal limits. Patient has a past medical history of non-Hodgkin's lymphoma, pericardial effusion, congestive heart failure, lung abscess. Related Data Home Medications Medication Instructions Recorded Confirmed gabapentin 300 mg capsule 300 mg PO TID 02/05/22 05/14/22 amoxicillin 875 mg-potassium 1 tab PO BID 5 days #10 tabs 05/14/22 clavulanate 125 mg tablet Previous Rx's Medication Instructions Recorded amoxicillin 875 mg-potassium 1 tab PO BID 5 days #10 tabs 05/14/22 clavulanate 125 mg tablet Allergies Allergy/AdvReac Type Severity Reaction Status Date / Time No Known Allergies Allergy Unverified 05/14/22 12:22 General Stated Complaint: EarProblem WALLY: 4 Review of Systems All systems reviewed & are unremarkable except as noted in HPI and below ENT Ears, Nose, Mouth, and Throat: Reports as per HPI and Reports otalgia PFSH All Active Problems (Updated 05/14/22 @ 12:42 by Debbie Wellington NP) Ear pain, right (Acute) Lung abscess (Acute) Drug-induced pneumonitis (Acute) NHL (non-Hodgkin's lymphoma) (Chronic) Lymphoma (Acute) Hemorrhagic pericardial effusion (Acute) CHF (congestive heart failure) (Chronic) Ascites (Acute) Social History Smoking/Tobacco Use Status: Former Tobacco Use Smoking risk assessment performed?: Yes Drug use: Never Substance use type: does not use Do you feel safe at home: Yes Do you feel safe in your relationship?: Yes Exam Narrative Exam Narrative: Constitutional: Alert and oriented x3. Appears stated age. Normal body habitus. Head: Normocephalic, no trauma. Eyes: Pupils PERRL, Red reflex noted, EOM's intact. Eyelids symmetrical without lesions, discharge, or swelling. ENT: Right tympanic membrane is dull, loss of landmarks, no erythema no bulging. External ear normal to inspection, no mastoid TTP, swelling, or erythema, Nasal turbinates WNL, no nasal discharge. Normal dentition, Posterior pharynx WNL, no exudate. Hematologic/Lymphatic: No ecchymosis, no lymphadenopathy. HENMT Ears: hearing grossly normal bilaterally, external ears normal and TM abnormal (Right) dull and with loss of landmarks General nose exam: external nose normal and nares normal Face and sinus: normal facial exam Mouth: oral mucosae normal Throat: posterior oropharynx normal Course Vital Signs Vital signs: Vital Signs Temperature 36.8 C 05/14/22 12:17 Pulse 98 H 05/14/22 12:17 Respiratory Rate 16 05/14/22 12:17 Blood Pressure 120/73 05/14/22 12:17 Pulse Oximetry 98 05/14/22 12:17 Temperature 36.8 C 05/14/22 12:17 Pulse 98 H 05/14/22 12:17 Respiratory Rate 16 05/14/22 12:17 Respiratory Effort 05/14/22 12:23 Blood Pressure 120/73 05/14/22 12:17 Pulse Oximetry 98 05/14/22 12:17 Oxygen Delivery Method Room Air 05/14/22 12:17 Oxygen Flow Rate 0 05/14/22 12:17 Pain Level 5 05/14/22 12:17
[2022-05-14 13:08] VITALS: PULSE 82; RESP 16; O2SAT 99
== END 2022-05-14 13:10 | disposition home or self-care (01) ==
PROVIDERS: Emergency Provider Registered Nurse Emergency; PCP Internal Medicine
DX: H92.01 Otalgia, right ear (principal); I50.9 Heart failure, unspecified; Z87.891 Personal history of nicotine dependence
CPT/HCPCS: 99283; 99284

== ENCOUNTER 2022-06-19 14:42 | Outpatient (CLI) | payer MEDICARE, OTHER, SELFPAY ==
[2022-06-19 14:20] LABS: Abs Immature Grans 0.03 10^3/uL (0.0-0.06); Absolute Basophil Count 0.04 10^3/uL (0.0-0.2); Absolute Eosinophil Count 0.18 10^3/uL (0.0-0.7); Absolute Lymphocyte Count 2.02 10^3/uL (1.2-3.4); Absolute Monocyte Count 0.76 10^3/uL (0.1-0.8); Absolute Neutrophil Count 4.34 10^3/uL (1.2-6.7); Basophils % 0.5; Eosinophils % 2.4; HCT 43.7 % (40.0-50.0); Immature Grans % 0.4; Lymphocytes % 27.4; MCH 29.8 pg (27.0-33.0); MCHC 34.3 % (32.0-36.0); MCV 87 fL (80-95); Monocytes % 10.3; Platelet Count 218 10^3/uL (130-400); RBC 5.03 10^6/uL (4.36-5.78); RDW-SD 40.1 fL; WBC 7.37 10^3/uL (4.4-10.8)
[2022-06-19 14:35] LABS: ALT 38 U/L (16-63); AST 26 U/L (15-37); Albumin 3.8 g/dL (3.4-5.0); Alkaline Phosphatase 88 U/L (46-116); Anion Gap 8.2 mmol/L (3-11); BUN 15 mg/dL (7-18); Bilirubin, Total 0.4 mg/dL (0.2-1.0); CO2 26.8 mmol/L (21.0-32.0); CREATININE 0.9 mg/dL (0.70-1.30); Calcium 8.7 mg/dL (8.5-10.1); Chloride 104 mmol/L (98-107); Estimated GFR 89.62 (mL/min/1.73m2); Glucose 115 mg/dL (74-106); LDH 135 U/L (85-227); Potassium 3.9 mmol/L (3.5-5.1); Sodium 139 mmol/L (136-145); Total Protein 6.9 g/dL (6.4-8.2)
== END 2022-06-19 14:43 | disposition home or self-care (01) ==
LOC: LBO 15:07
PROVIDERS: PCP Internal Medicine; Visit Provider Internal Medicine Hematology & Oncology
DX: C83.30 Diffuse large B-cell lymphoma, unspecified site (principal)
CPT/HCPCS: 36415; 80053; 83615; 85025

== ENCOUNTER 2022-08-29 13:32 | Emergency (ER) | payer MEDICARE, OTHER, SELFPAY ==
[2022-08-29 13:35] VITALS: BP 154/74; PULSE 86; RESP 18; TEMP 36.6; O2SAT 97
--- NOTE | 2022-08-29 14:12 | ED.GENADUL_ITS ---
Discharge Plan Disposition Patient Disposition: Home Condition: Stable Discharge Details Clinical Impression: Rash and nonspecific skin eruption Primary Care Provider: Hannah Silvestre ED Provider: Debbie Wellington Home Meds and New Rx's Prescriptions: No Action gabapentin 300 mg capsule 300 mg PO TID Discharge Instructions Instructions: Acute Rash (ED) Additional Instructions: Please continue to use Eucerin cream. You may also apply the triamcinolone cream up to 3 times daily as needed for no longer than 7 days. Do not abruptly stop the gabapentin. If you feel this is the culprit you may taper off. However I do recommend that you speak with your primary care physic kd or the prescribing physician before stopping this. Follow up with primary care provider in 3-5 days. Please be seen sooner if any worsening rash, trouble breathing, signs of infection or concerns. Increase oral fluids. Referrals: Hannah Silvestre [Primary Care Provider] - 1 week Discharge Data Discharge Date/Time-TO BE ENTERED AT DEPARTURE: 08/29/22 14:13 Medical Decision Making Patient has a mild superficial rash noted to his bilateral arms and lower extremities which appears chronic. There is no surrounding induration or signs of infection. He has only been trying Eucerin cream at home. He is concerned it might be related to his gabapentin. Did prescribe triamcinolone cream and discussed follow-up with his PCP to discuss the gabapentin. I also discussed trying an antifungal if the triamcinolone cream produces no improvement. This text was generated using [employer] dictation system, please disregard any oddities of phrase or misspellings. HPI General Mode of arrival: ambulatory . Date/Time Provider Initiated Documentation: 08/29/22 13:39 . Limitations to Documentation: no limitations . Information obtained by: patient, RN notes reviewed and old records reviewed . HPI Narrative: 22-year-old male presents to the ER with chief complaint of dry itchy rash on his lower extremities and arms x2 weeks, worse at night. He has tried Eucerin cream at home. No signs of induration no infection no fever chills. He is on gabapentin for history of lymphoma and he is questioning if this may be the cause of the rash. Related Data Home Medications Medication Instructions Recorded Confirmed gabapentin 300 mg capsule 300 mg PO TID 02/05/22 08/29/22 Allergies Allergy/AdvReac Type Severity Reaction Status Date / Time No Known Allergies Allergy Unverified 05/14/22 12:22 General Stated Complaint: RashLesion WALLY: 4 Review of Systems Integumentary/Breasts Skin/Breast: Reports as per HPI and Reports rash PFSH All Active Problems (Updated 08/29/22 @ 14:14 by Debbie Wellington NP) Rash and nonspecific skin eruption (Acute) Lung abscess (Acute) Drug-induced pneumonitis (Acute) NHL (non-Hodgkin's lymphoma) (Chronic) Lymphoma (Acute) Hemorrhagic pericardial effusion (Acute) CHF (congestive heart failure) (Chronic) Ascites (Acute) Social History Smoking/Tobacco Use Status: Former Tobacco Use Smoking risk assessment performed?: Yes Alcohol Intake: current Alcohol Intake frequency: a few times a week Drug use: Never Substance use type: does not use Do you feel safe at home: Yes Do you feel safe in your relationship?: Yes Exam Skin Rashes: rashes noted (Superficial, dry skin rash. No induration) papules diffuse upper multiple locations Full body images: 1. Superficial papular rash 2. Superficial papular rash Course Vital Signs Vital signs: Vital Signs Temperature 36.6 C 08/29/22 13:35 Pulse 86 08/29/22 13:35 Respiratory Rate 18 08/29/22 13:35 Blood Pressure 154/74 H 08/29/22 13:35 Pulse Oximetry 97 08/29/22 13:35 Temperature 36.6 C 08/29/22 13:35 Temperature Source Temporal Artery Scan 08/29/22 13:35 Pulse 86 08/29/22 13:35 Respiratory Rate 18 08/29/22 13:35 Respiratory Effort Non-Labored 08/29/22 13:39 Blood Pressure 154/74 H 08/29/22 13:35 Blood Pressure Position Sitting 08/29/22 13:35 Pulse Oximetry 97 08/29/22 13:35 Oxygen Delivery Method Room Air 08/29/22 13:35 Oxygen Flow Rate 0 08/29/22 13:35 PAWSS Have you Been Recently Intoxicated or Drunk Within the Last 30 days?: No Have you Ever Experienced Previous Episodes of Alcohol Withdrawal?: No Have you ever Experienced Withdrawal Seizures?: No Have you ever Experienced Delirium Tremens(DT)s?: No Have you ever undergone Alcohol Rehabilitation Treatment (i.e, inpt ot outpatient treatment programs)?: No Have you ever Experienced Blackouts?: No Have you ever Combined Alcohol with other Downers within the last 90 days?: No Have you ever Combined Alcohol with any other Substance of Abuse during the last 90 days?: No Positive Blood Alcohol level on Presentation? [PCS.BAL]: No Evidence of Increased Autonomic Activity (i.e. HR>120, tremor, sweating, agitation, nausea)?: No Result: 0
[2022-08-29] MEDS: Triamcinolone 0.1% CR 15 GM TUBE TP (14:28)
== END 2022-08-29 14:13 | disposition home or self-care (01) ==
PROVIDERS: Emergency Provider Registered Nurse Emergency; PCP Internal Medicine
DX: R21 Rash and other nonspecific skin eruption (principal)
CPT/HCPCS: 99283

== ENCOUNTER 2022-09-23 01:25 | Outpatient (CLI) | payer MEDICARE, OTHER, SELFPAY ==
--- NOTE | 2022-09-23 | DI.CT_ITS ---
Exam(s) CT CHEST/ABD/PEL W EXAM: CT CHEST/ABD/PEL W CLINICAL HISTORY: LYMPHOMA MULTIPLE REGIONS C83.38, COMPARE TO MARCH PET SCAN. TECHNIQUE: Imaging Protocol: Axial computed tomography images with coronal and sagittal reformatted images were created and reviewed CONTRAST MATERIAL: Intravenous: Omnipaque 350 Contrast volume:100 ml Oral: yes COMPARISON: CT CT CHEST PE CTA from 09/11/2021 CT,PT NM PET CT STANDARD SKULL BASE TO MID-THIGH from 03/11/[address] CHEST WO from 03/12/2022 FINDINGS: CHEST: Tracheobronchial tree: Patent where visualized. Mediastinum and Kayley: No dominant adenopathy or fluid collection. Pulmonary parenchyma: No consolidation or dominant measurable mass. Area of scarring right middle lo be. Mild reticular changes both upper lobes peripherally. Pleura: No effusion or pneumothorax. Lymph nodes: Within normal limits. Aorta: Thoracic portion non-dilated. Mild atherosclerotic changes. New line pulmonary arteries. No evidence of emboli. Heart: Normal size. No pericardial effusion. Bones: Degenerative changes. Stable appearance of T7 hemangioma. Soft tissues: Bilateral gynecomastia. Small hiatal hernia. ABDOMEN: Liver: Normal density. Stable liver cysts. No suspicious mass. Gallbladder and biliary tract: No radiodense calculus or dilation. Pancreas: Normal density, no abnormal calcifications or inflammatory process. Spleen: Normal. Kidneys: Normal size, contour and axis. No radiodense stones or obstructive uropathy. No masses seen. Adrenal glands: No masses seen. Aorta: Abdominal portion non-dilated. [id number] atherosclerotic changes. Lymph nodes: Within normal limits. Soft tissues: Unremarkable. PELVIS: Bladder: Symmetric distention, no gross wall thickening. Bowel: Diverticulosis descending and sigmoid colon. No evidence of diverticulitis. No obstruction o r bowel wall thickening. Peritoneal cavity: No ascites, collection or mesenteric inflammatory response. Bones: Degenerative changes, unremarkable for age.. Reproductive organs: Prostate mildly enlarged. Soft tissues: Interval repair of previously noted left inguinal hernia. IMPRESSION: No evidence of adenopathy or metastatic disease in the chest abdomen or pelvis. RADIATION DOSE DELIVERED: 1,696.5mGy.cm Total DLP DATA REPOSITORY: All CT scans at this facility are submitted to the National Radiology Data Registry (NRDR) Dose Index Registry (DIR) with the [employer] (ACR). RADIATION OPTIMIZATION: All CT scans at this facility use at least one of these dose optimization te chniques: automated exposure control; mA and/or kV adjustment per patient size (includes targeted exa ms where dose is matched to clinical indication); or iterative reconstruction.
[2022-09-23 13:25] LABS: Abs Immature Grans 0.03 10^3/uL (0.0-0.06); Absolute Basophil Count 0.03 10^3/uL (0.0-0.2); Absolute Eosinophil Count 0.17 10^3/uL (0.0-0.7); Absolute Lymphocyte Count 1.97 10^3/uL (1.2-3.4); Absolute Monocyte Count 0.58 10^3/uL (0.1-0.8); Absolute Neutrophil Count 3.84 10^3/uL (1.2-6.7); Basophils % 0.5; Eosinophils % 2.6; HGB 16.6 g/dL (13.5-17.5); Immature Grans % 0.5; Lymphocytes % 29.8; MCH 30.1 pg (27.0-33.0); MCHC 33.2 % (32.0-36.0); MCV 91 fL (80-95); MPV 8.7 fL (8.0-11.0); Monocytes % 8.8; Neutrophils % 57.8; Platelet Count 214 10^3/uL (130-400); RBC 5.52 10^6/uL (4.36-5.78); RDW 14.1 % (11.8-14.1); RDW-SD 46.9 fL; WBC 6.62 10^3/uL (4.4-10.8)
[2022-09-23] MEDS: Omnipaque 350 MG/ML 500 ML BTL-Imaging package 100 ML IJ (13:36)
[2022-09-23] MEDS: Normal Saline Flush 10 ML SYR IVP (13:39)
[2022-09-23 13:42] LABS: ALT 41 U/L (16-63); AST 30 U/L (15-37); Albumin 4.1 g/dL (3.4-5.0); Alkaline Phosphatase 92 U/L (46-116); Anion Gap 6.7 mmol/L (3-11); BUN 12 mg/dL (7-18); Bilirubin, Total 0.6 mg/dL (0.2-1.0); CO2 29.3 mmol/L (21.0-32.0); CREATININE 0.9 mg/dL (0.70-1.30); Calcium 9.5 mg/dL (8.5-10.1); Chloride 104 mmol/L (98-107); Estimated GFR 89.62 (mL/min/1.73m2); Glucose 113 mg/dL (74-106); LDH 145 U/L (85-227); Potassium 4.4 mmol/L (3.5-5.1); Sodium 140 mmol/L (136-145); Total Protein 7.2 g/dL (6.4-8.2)
[2022-09-23] MEDS: Barium Sulfate 2% W/V-Berry Smoothie 450 ML BTL PO ×2 (14:21)
[2022-09-24 09:14] LABS: IgA 51 mg/dL (85-499); IgG 652 mg/dL (610-1616); IgM 37 mg/dL (35-242)
== END 2022-09-23 01:45 ==
LOC: DI 01:25
PROVIDERS: PCP Internal Medicine; Visit Provider Internal Medicine Hematology & Oncology
DX: C83.38 Diffuse large B-cell lymphoma, lymph nodes of multiple sites (principal)
CPT/HCPCS: 74177; 80053; 82784; 71260; 83615; 85025

== ENCOUNTER 2022-10-16 01:41 | Outpatient (CLI) | payer MEDICARE, OTHER, SELFPAY ==
[2022-10-16 10:39] LABS: Abs Immature Grans 0.02 10^3/uL (0.0-0.06); Absolute Basophil Count 0.05 10^3/uL (0.0-0.2); Absolute Eosinophil Count 0.14 10^3/uL (0.0-0.7); Absolute Lymphocyte Count 1.92 10^3/uL (1.2-3.4); Absolute Monocyte Count 0.64 10^3/uL (0.1-0.8); Absolute Neutrophil Count 3.76 10^3/uL (1.2-6.7); Basophils % 0.8; Eosinophils % 2.1; HCT 38.2 % (40.0-50.0); HGB 12.3 g/dL (13.5-17.5); Immature Grans % 0.3; Lymphocytes % 29.4; MCH 29.1 pg (27.0-33.0); MCHC 32.2 % (32.0-36.0); MCV 90 fL (80-95); MPV 8.8 fL (8.0-11.0); Monocytes % 9.8; Neutrophils % 57.6; Platelet Count 248 10^3/uL (130-400); RBC 4.23 10^6/uL (4.36-5.78); RDW-SD 42.8 fL; WBC 6.53 10^3/uL (4.4-10.8)
[2022-10-16 10:56] LABS: ALT 35 U/L (16-63); AST 27 U/L (15-37); Albumin 3.7 g/dL (3.4-5.0); Alkaline Phosphatase 74 U/L (46-116); Anion Gap 7.4 mmol/L (3-11); BUN 13 mg/dL (7-18); Bilirubin, Total 0.5 mg/dL (0.2-1.0); CO2 27.6 mmol/L (21.0-32.0); Calcium 8.5 mg/dL (8.5-10.1); Chloride 104 mmol/L (98-107); Estimated GFR 78.98 (mL/min/1.73m2); Glucose 84 mg/dL (74-106); LDH 137 U/L (85-227); Potassium 4.3 mmol/L (3.5-5.1); Sodium 139 mmol/L (136-145); Total Protein 6.4 g/dL (6.4-8.2)
[2022-10-17 10:18] LABS: IgA 41 mg/dL (85-499); IgG 597 mg/dL (610-1616); IgM 33 mg/dL (35-242)
== END 2022-10-16 01:42 | disposition home or self-care (01) ==
LOC: LBO 01:41
PROVIDERS: PCP Internal Medicine; Visit Provider Internal Medicine Hematology & Oncology
DX: C83.38 Diffuse large B-cell lymphoma, lymph nodes of multiple sites (principal)
CPT/HCPCS: 36415; 80053; 82784; 83615; 85025

== ENCOUNTER 2022-12-12 13:53 | Emergency (ER) | payer MEDICARE, OTHER, SELFPAY ==
[2022-12-12 14:00] VITALS: BP 129/66; PULSE 90; RESP 16; TEMP 36.9; O2SAT 96
--- NOTE | 2022-12-12 17:45 | ED.GENADUL_ITS ---
Discharge Plan Disposition Patient Disposition: Home Condition: Stable Discharge Details Clinical Impression: Left facial pressure and pain Primary Care Provider: Hannah Silvestre ED Provider: Edie Pollack Home Meds and New Rx's Prescriptions: New prednisone 20 mg tablet See Rx Instructions .ROUTE .COMPLEX Qty: 18 0RF Rx Instructions: Take 3 tabs daily for 3 days, then 2 tabs daily for 3 days, then 1 tab daily for 3 days. Continued gabapentin 300 mg capsule 300 mg PO TID Patient Comments: not taking 12/12/22 CT Discharge Instructions Instructions: Shingles (ED), Trigeminal Neuralgia (ED) Additional Instructions: The source of your facial pain and pressure is unclear at this time. Possibilities include trigeminal neuralgia which is pain associated with compression of a nerve within your face. This is usually exacerbated with eating, talking or brushing your teeth. Other possibilities include shingles although this is usually associated with development of a one-sided facial rash. Your presentation at this time does not appear consistent with a sinus, ear or dental infection. Your presentation also does not appear consistent with temporal arteritis at this time as this is usually associated with headache, blurry vision, fever, fatigue and weight loss. A prescription for steroids has been sent electronically to your pharmacy to take as directed until finished. You can take your gabapentin as prescribed as this can help with trigeminal neuralgia. You have been placed on care management's list to help arrange for a follow-up appointment with your primary care doctor within the next 1 to 2 weeks for reevaluation. If you are unable to secure an appointment with your primary care doctor, we will arrange for an appointment with the Ear Nose and Throat doctor. Return immediately to the emergency department if you develop any worsening or new concerning symptoms such as fever, headache, blurry vision, worsening pain, redness or any other concerns. Referrals: Tyrel Paredes MD [ [facility] STAFF PHYSICIAN] - Discharge Data Discharge Date/Time-TO BE ENTERED AT DEPARTURE: 12/12/22 18:28 Discharge Physician: Edie Pollack Medical Decision Making 72-year-old male with a history of lymphoma diagnosed in 2020 treated with chemotherapy now in remission presents with 3 weeks of left-sided intermittent facial pain. States the pain was worse last night. Patient appears comfortable and nontoxic. He has been reading a book while waiting in the emergency department. He has no complaint of dental pain or tenderness to palpation or abscess noted to suggest a dental infection. He has no complaint of nasal congestion, discharge or sinus tenderness to suggest not sinusitis. He has no complaint of fever, fatigue, headache, dizziness or blurry vision to suggest temporal arteritis. He has no complaint of ear pain and TMs appear normal so she is just an ear infection. There is no tenderness to palpation over the TMJ to suggest TMJ arthritis. As the pain has been present for 3 weeks and he has not developed any rash, does not appear consistent with shingles. Discussed with patient that shingles is still certainly a possibility and to continue to monitor for rash. Also discussed possibility of trigeminal neuralgia however he has no exacerbation of pain with usual triggering events such as brushing teeth, eating or talking. Discussed the possibility of treating with carbamazepine due to numerous possibility of side effects including nausea, vomiting, headache and lethargy, he declines. Discussed that he can continue taking his gabapentin and treat with a short course of steroids. Patient placed on care management list to arrange for a follow-up appointment with his primary care doctor Dr. Hannah Silvestre at [facility]. He states he usually cannot get in for a appointment for 4 months. We will try to obtain an appointment within 2 weeks and if unable, patient placed on care management list to arrange for a follow-up appointment with ENT within 1 to 2 weeks. Advised to return here immediately for reevaluation if he develops any fever, fatigue, erythema, blurry vision or any other concerns for reevaluation and consideration of lab work and imaging at that time if indicated. Medical Records Medical records reviewed: Yes I reviewed the patient's medical records. HPI General Mode of arrival: ambulatory . Date/Time Provider Initiated Documentation: 12/12/22 13:54 . Limitations to Documentation: no limitations . Information obtained by: patient . HPI Narrative: Patient is a 72-year-old male with a history of lymphoma diagnosed in 2020 treated with chemotherapy now in remission presents with 3 weeks of left-sided intermittent facial pain. He states the pain occurs at random and is sharp and jabbing. 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 He denies any fever, headache, nasal congestion, nasal discharge, ear pain, sore throat, blurry vision, neck pain, difficulty swallowing, difficulty breathing or rash. He states the pain is not worse with chewing, talking or brushing his teeth. Related Data Home Medications Medication Instructions Recorded Confirmed gabapentin 300 mg capsule 300 mg PO TID 02/05/22 08/29/22 prednisone 20 mg tablet See Rx Instructions .Route 12/12/22 .COMPLEX #18 tabs Previous Rx's Medication Instructions Recorded prednisone 20 mg tablet See Rx Instructions .Route 12/12/22 .COMPLEX #18 tabs Allergies Allergy/AdvReac Type Severity Reaction Status Date / Time No Known Allergies Allergy Unverified 12/12/22 16:18 General Stated Complaint: FacialProb WALLY: 3 Review of Systems All systems reviewed & are unremarkable except as noted in HPI and below Constitutional Constitutional: Reports as per HPI, Denies chills and Denies fever(s) Eyes Eyes: Denies blurry vision ENT Ears, Nose, Mouth, and Throat: Denies dizziness, Denies sore throat and Denies throat swelling Cardiovascular Cardiovascular: Denies chest pain and Denies dyspnea Respiratory Respiratory: Denies cough and Denies dyspnea Gastrointestinal Gastrointestinal: Denies abdominal pain, Denies diarrhea and Denies vomiting Genitourinary Genitourinary: Denies hematuria and Denies dysuria Musculoskeletal Musculoskeletal: Denies back pain and Denies numbness Integumentary/Breasts Skin/Breast: Denies lesions and Denies rash Neurologic Neurologic: Denies dizziness, Denies localized weakness and Denies numbness Allergic/Immunologic Allergic/Immunologic: Denies throat swelling PFSH All Active Problems (Updated 12/12/22 @ 18:11 by Edie Pollack DO) Left facial pressure and pain (Acute) Lung abscess (Acute) Drug-induced pneumonitis (Acute) NHL (non-Hodgkin's lymphoma) (Chronic) Hemorrhagic pericardial effusion (Acute) CHF (congestive heart failure) (Chronic) Ascites (Acute) Medical History (Updated 12/12/22 @ 18:11 by Edie Pollack DO) Lymphoma Surgical History (Updated 12/12/22 @ 17:48 by Edie Pollack DO) History of tonsillectomy Social History Smoking/Tobacco Use Status: Former Tobacco Use Smoking risk assessment performed?: Yes Alcohol Intake: current Alcohol Intake frequency: a few times a week Drug use: Never Substance use type: does not use Do you feel safe at home: Yes Do you feel safe in your relationship?: Yes Exam Const General: cooperative, healthy appearing and no acute distress Orientation: alert, awake and oriented x3 HENNJ Head: normal to inspection Head images: 1. There is some scattered tenderness to palpation to the left side of the face. This appears to be moving in location at times, at 1 point tender preauricular, then zygoma, then temporal area, then on reassessment is nontender. Ears: hearing grossly normal bilaterally, external ears normal and TM's normal bilaterally General nose exam: external nose normal Face and sinus: normal facial exam Mouth: oral mucosae normal Throat: posterior oropharynx normal Eyes General: appearance normal, both eyes and all related structures Pupils: PERRL EOM: EOM intact bilaterally Neck Neck: normal visual inspection and No submandibular swelling Lymphatic: no lymphadenopathy noted Chest Chest: normal inspection of the chest and no tenderness Resp Effort & Inspection: normal respiratory effort and able to speak in complete sentences Auscultation: clear to auscultation bilaterally Cardio Rate: regular rate Rhythm: regular rhythm Skin General skin exam: no rashes or lesions noted Neuro General: patient alert, patient awake, patient oriented x3, moves all extremities and no meningeal signs Cognition: normal cognition Speech: speech normal Motor: muscle tone normal throughout Sensory Exam: no sensory deficits noted Extrem General: full ROM Psych Appearance: grossly normal Mental Status: mental status grossly normal Speech and Movement: speech and movement normal Affect: normal affect Course Vital Signs Vital signs: Vital Signs Temperature 98.4 F 12/12/22 14:00 Pulse 90 12/12/22 14:00 Respiratory Rate 16 12/12/22 14:00 Blood Pressure 129/66 12/12/22 14:00 Pulse Oximetry 96 12/12/22 14:00 Temperature 98.4 F 12/12/22 14:00 Temperature Source Skin 12/12/22 14:00 Pulse 90 12/12/22 14:00 Respiratory Rate 16 12/12/22 14:00 Respiratory Effort Normal 12/12/22 16:14 Blood Pressure 129/66 12/12/22 14:00 Blood Pressure Position Sitting 12/12/22 14:00 Pulse Oximetry 96 12/12/22 14:00 Oxygen Delivery Method Room Air 12/12/22 14:00 Oxygen Flow Rate 0 04/13/23 14:00 Pain Level 5 12/12/22 16:14 Comment worse at night 12/12/22 14:00 PAWSS Have you Been Recently Intoxicated or Drunk Within the Last 30 days?: No Have you Ever Experienced Previous Episodes of Alcohol Withdrawal?: No Have you ever Experienced Withdrawal Seizures?: No Have you ever Experienced Delirium Tremens(DT)s?: No Have you ever undergone Alcohol Rehabilitation Treatment (i.e, inpt ot outpatient treatment programs)?: No Have you ever Experienced Blackouts?: No Have you ever Combined Alcohol with other Downers within the last 90 days?: No Have you ever Combined Alcohol with any other Substance of Abuse during the last 90 days?: No Result: 0
--- NOTE | 2022-12-12 18:19 | NUR.NOTE ---
Nursing Note: Referral given to Care management for PCP (Hannah Silvestre, [facility] PCP) for left sided facial pain/?trigeminal neuralgia in 1 to 2 weeks. Referral given to Care management for [facility] for left sided facial pain/?trigeminal neuralgia in 1 to 2 weeks if unable to get in to PCP within this allotted time.
[2022-12-12] MEDS: predniSONE 20 MG TAB 60 MG PO (18:28)
== END 2022-12-12 18:28 | disposition home or self-care (01) ==
PROVIDERS: Emergency Provider Physician Assistant; PCP Internal Medicine
DX: R51.9 Headache, unspecified (principal)
CPT/HCPCS: 99283; 99284; J7512

== ENCOUNTER 2023-01-13 00:58 | Outpatient (CLI) | payer MEDICARE, OTHER, SELFPAY ==
--- NOTE | 2023-01-13 07:30 | DI.MRI_ITS ---
Exam(s) MR BRAIN WO/W EXAM: MR BRAIN WO/W CLINICAL HISTORY: ongoing left sided facial pain,r51.9,headache. TECHNIQUE: Multiplanar multisequence MRI of the brain was performed. CONTRAST MATERIAL: IV Contrast: 17 ML of Dotarem contrast administered. COMPARISON: No exams were available for comparison FINDINGS: VENTRICLES AND EXTRA AXIAL SPACES: Normal in size and morphology for the patient's age. HEMORRHAGE: None. CEREBRAL PARENCHYMA: No focus of restricted diffusion to suggest acute infarct. No space-occupying le cornelia identified. No abnormal high signal lesions in the white matter. MIDLINE SHIFT: None. BRAINSTEM/CEREBELLUM: Normal. CALVARIUM: Normal. ENHANCEMENT: No suspicious enhancement identified. VISUALIZED PARANASAL SINUSES/MASTOIDS: Mucous retention at the floor of the right maxillary sinus. OTHER FINDINGS: None. IMPRESSION: Unremarkable MRI of the brain. Mild right maxillary sinus disease. DATA REPOSITORY:
[2023-01-13 10:02] LABS: CREATININE 0.9 mg/dL (0.70-1.30); Estimated GFR 89.62 (mL/min/1.73m2)
[2023-01-13] MEDS: Gadoterate meglumine 20 ML VIAL 17 ML IVP (10:05)
[2023-01-13] MEDS: Normal Saline Flush 10 ML SYR IVP (10:05)
== END 2023-01-13 01:18 ==
PROVIDERS: PCP Internal Medicine; Visit Provider Registered Nurse Maternal Newborn
DX: R51.9 Headache, unspecified (principal); J01.00 Acute maxillary sinusitis, unspecified
CPT/HCPCS: 70553; 82565

== ENCOUNTER 2023-02-12 12:36 | Outpatient (CLI) | payer MEDICARE, OTHER, SELFPAY ==
[2023-02-12 12:15] LABS: Abs Immature Grans 0.02 10^3/uL (0.0-0.06); Absolute Basophil Count 0.04 10^3/uL (0.0-0.2); Absolute Eosinophil Count 0.15 10^3/uL (0.0-0.7); Absolute Lymphocyte Count 1.93 10^3/uL (1.2-3.4); Absolute Monocyte Count 0.49 10^3/uL (0.1-0.8); Absolute Neutrophil Count 4.58 10^3/uL (1.2-6.7); Basophils % 0.6; Eosinophils % 2.1; HCT 48.2 % (40.0-50.0); HGB 15.5 g/dL (13.5-17.5); Immature Grans % 0.3; Lymphocytes % 26.8; MCH 27.2 pg (27.0-33.0); MCHC 32.2 % (32.0-36.0); MCV 85 fL (80-95); MPV 8.9 fL (8.0-11.0); Monocytes % 6.8; Neutrophils % 63.4; Platelet Count 251 10^3/uL (130-400); RDW-SD 49.3 fL; WBC 7.21 10^3/uL (4.4-10.8)
[2023-02-12 12:39] LABS: ALT 32 U/L (16-63); AST 24 U/L (15-37); Albumin 3.8 g/dL (3.4-5.0); Alkaline Phosphatase 73 U/L (46-116); Anion Gap 0.9 mmol/L (3-11); BUN 11 mg/dL (7-18); Bilirubin, Total 0.7 mg/dL (0.2-1.0); CO2 30.1 mmol/L (21.0-32.0); Calcium 9.3 mg/dL (8.5-10.1); Chloride 105 mmol/L (98-107); Estimated GFR 78.98 (mL/min/1.73m2); Glucose 122 mg/dL (74-106); LDH 143 U/L (85-227); Potassium 4.2 mmol/L (3.5-5.1); Sodium 136 mmol/L (136-145); Total Protein 7.3 g/dL (6.4-8.2)
[2023-02-13 08:58] LABS: IgA 50 mg/dL (85-499); IgG 623 mg/dL (610-1616); IgM 41 mg/dL (35-242)
== END 2023-02-12 12:37 | disposition home or self-care (01) ==
LOC: LBO 12:39
PROVIDERS: PCP Internal Medicine; Visit Provider Internal Medicine Hematology & Oncology
DX: C83.38 Diffuse large B-cell lymphoma, lymph nodes of multiple sites (principal)
CPT/HCPCS: 36415; 80053; 82784; 83615; 85025

== ENCOUNTER 2023-03-31 17:49 | Outpatient (CLI) | payer MEDICARE, OTHER, SELFPAY ==
[2023-03-31 17:36] LABS: HCT 47.8 % (40.0-50.0); HGB 15.4 g/dL (13.5-17.5); MCH 27.9 pg (27.0-33.0); MCHC 32.2 % (32.0-36.0); MCV 87 fL (80-95); MPV 9.1 fL (8.0-11.0); Platelet Count 233 10^3/uL (130-400); RBC 5.52 10^6/uL (4.36-5.78); RDW 14.8 % (11.8-14.1); RDW-SD 47.2 fL; WBC 8.57 10^3/uL (4.4-10.8)
[2023-03-31 17:55] LABS: ALT 34 U/L (16-63); AST 27 U/L (15-37); Albumin 4.1 g/dL (3.4-5.0); Alkaline Phosphatase 73 U/L (46-116); Anion Gap 10.5 mmol/L (3-11); BUN 17 mg/dL (7-18); Bilirubin, Total 0.4 mg/dL (0.2-1.0); CO2 25.5 mmol/L (21.0-32.0); CREATININE 0.9 mg/dL (0.70-1.30); Calcium 9.2 mg/dL (8.5-10.1); Chloride 104 mmol/L (98-107); Estimated GFR 89.07 (mL/min/1.73m2); Glucose 108 mg/dL (74-106); Potassium 4.4 mmol/L (3.5-5.1); Sodium 140 mmol/L (136-145); TSH 1.45 uIU/mL (0.36-3.74); Total Protein 6.7 g/dL (6.4-8.2)
[2023-04-01 19:35] LABS: PSA, Screening 2.7 ng/mL (<=6.5)
== END 2023-03-31 17:50 | disposition home or self-care (01) ==
LOC: LBO 17:50
PROVIDERS: PCP Internal Medicine; Visit Provider Internal Medicine
DX: J96.01 Acute respiratory failure with hypoxia (principal); R53.82 Chronic fatigue, unspecified; Z12.5 Encounter for screening for malignant neoplasm of prostate
CPT/HCPCS: 36415; 80053; 84153; 85027; 84443

== ENCOUNTER 2023-05-27 20:58 | Outpatient (CLI) | payer MEDICARE, OTHER, SELFPAY ==
[2023-05-27 14:32] LABS: HCT 47.3 % (40.0-50.0); HGB 15.6 g/dL (13.5-17.5); MCH 28.7 pg (27.0-33.0); MCV 87 fL (80-95); Platelet Count 196 10^3/uL (130-400); RBC 5.43 10^6/uL (4.36-5.78); RDW 13.6 % (11.8-14.1); RDW-SD 43.3 fL; WBC 6.41 10^3/uL (4.4-10.8)
[2023-05-27 14:51] LABS: Hemoglobin A1C 5.5 % (<5.7)
[2023-05-27 15:41] LABS: ALT 32 U/L (16-63); AST 23 U/L (15-37); Albumin 3.8 g/dL (3.4-5.0); Alkaline Phosphatase 64 U/L (46-116); Anion Gap 7.6 mmol/L (3-11); BUN 18 mg/dL (7-18); Bilirubin, Total 0.4 mg/dL (0.2-1.0); CO2 27.4 mmol/L (21.0-32.0); CREATININE 0.9 mg/dL (0.70-1.30); Calcium 9.5 mg/dL (8.5-10.1); Chloride 104 mmol/L (98-107); Estimated GFR 89.07 (mL/min/1.73m2); Glucose 105 mg/dL (74-106); Potassium 4.4 mmol/L (3.5-5.1); Sodium 139 mmol/L (136-145); TSH 1.48 uIU/mL (0.36-3.74); Total Protein 6.9 g/dL (6.4-8.2)
== END 2023-05-27 20:59 | disposition home or self-care (01) ==
LOC: LBO 20:58
PROVIDERS: PCP Internal Medicine; Visit Provider Internal Medicine
DX: R73.9 Hyperglycemia, unspecified (principal); E78.5 Hyperlipidemia, unspecified; R53.82 Chronic fatigue, unspecified; N40.1 Benign prostatic hyperplasia with lower urinary tract symptoms; E03.9 Hypothyroidism, unspecified; J96.01 Acute respiratory failure with hypoxia; Z12.5 Encounter for screening for malignant neoplasm of prostate
CPT/HCPCS: 36415; 80053; 84153; 85027; 83036; 84443

== ENCOUNTER → 2023-06-02 02:25 | Outpatient (CLI) | payer MEDICARE, OTHER, SELFPAY ==
--- NOTE | 2023-06-02 | DI.CT_ITS ---
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 TECHNIQUE: Imaging Protocol: Axial computed tomography images with coronal and sagittal reformatted images were created and reviewed CONTRAST MATERIAL: Intravenous: Omnipaque 350 Contrast volume:100 ml Oral: Yes. Oral contrast was also administered for bowel opacification. COMPARISON: CT CT CHEST/ABD/PEL W from 09/23/2022 FINDINGS: CHEST: LUNGS: No confluent infiltrates nor pleural effusions. No ominous pulmonary nodules evident. No sig nificant focal findings in the trachea and mainstem bronchi.. MEDIASTINUM: There is no hilar nor mediastinal adenopathy. Visualized thyroid unremarkable. CARDIAC: Heart size is normal. There is no pericardial effusion.Caliber of the thoracic aorta is wit hin normal limits. OSSEOUS: No significant osseous lesions.. ABDOMEN: There is no ascites. No new mesenteric masses, mesenteric adenopathy, nor omental cake. LIVER: Previously described benign-appearing cysts in the liver again noted. Largest of these is aga in noted be in the caudate lobe and measures 2.4 x 1.0 cm. There are no new additional focal finding s in the liver. No dilated intrahepatic ducts. GALLBLADDER/BILIARY: No obvious gallbladder pathology. CBD is not dilated. PANCREAS: No evidence of pancreatic mass nor dilatation of the pancreatic duct. SPLEEN: Spleen is not enlarged. There are no intrasplenic lesions. Splenic and portal veins are richardson nt. ADRENALS: There are no significant adrenal masses. KIDNEYS: No calculi nor hydronephrosis. No solid renal masses. No cysts evident. ABDOMINAL AORTA: Abdominal aorta is not enlarged. LYMPH NODES: There is no retroperitoneal nor paraaortic adenopathy. ABDOMINAL WALL: No evidence of significant anterior abdominal wall nor inguinal hernia. GI: There is no evidence of bowel obstruction. PELVIS: LYMPH NODES: There is no intrapelvic nor inguinal adenopathy. GI: No evidence of appendicitis.There are diverticuli in left side of the colon as well as sigmoid di verticulosis noted. However, there is no evidence of acute diverticulitis. Also no obvious colitis pattern. URINARY BLADDER: Mild uniform thickening of the urinary bladder wall again noted. REPRODUCTIVE: Prostate size upper normal. Seminal vesicles unremarkable. No obturator adenopathy. OSSEOUS: No fractures. No significant new osseous lesions. IMPRESSION: 1. No evidence of metastatic disease no lymphadenopathy in the chest, abdomen, and pelvis. 2. Stable benign-appearing cysts in the liver again noted. RADIATION DOSE DELIVERED: 1,547.98mGy.cm Total DLP DATA REPOSITORY: All CT scans at this facility are submitted to the National Radiology Data Registry (NRDR) Dose Index Registry (DIR) with the [employer] (ACR). RADIATION OPTIMIZATION: All CT scans at this facility use at least one of these dose optimization te chniques: automated exposure control; mA and/or kV adjustment per patient size (includes targeted exa ms where dose is matched to clinical indication); or iterative reconstruction.
[2023-06-02] MEDS: Breeza Beverage 473 ML BTL PO ×2 (08:39→08:40)
[2023-06-02] MEDS: Omnipaque 350 MG/ML 50 ML BTL PO (08:39)
[2023-06-02] MEDS: Normal Saline - Diluent 50 ML VIAL IJ (10:43)
[2023-06-02] MEDS: Omnipaque 350 MG/ML 500 ML BTL-Imaging package IJ (10:45)
== END ==
PROVIDERS: PCP Internal Medicine; Visit Provider Nurse Practitioner Adult Health
DX: C83.38 Diffuse large B-cell lymphoma, lymph nodes of multiple sites (principal)
CPT/HCPCS: 74177; 71260; Q9967

== ENCOUNTER 2023-06-11 12:31 | Outpatient (CLI) | payer MEDICARE, OTHER, SELFPAY ==
[2023-06-11 12:53] LABS: Abs Immature Grans 0.03 10^3/uL (0.0-0.06); Absolute Basophil Count 0.04 10^3/uL (0.0-0.2); Absolute Eosinophil Count 0.12 10^3/uL (0.0-0.7); Absolute Lymphocyte Count 1.91 10^3/uL (1.2-3.4); Absolute Monocyte Count 0.59 10^3/uL (0.1-0.8); Absolute Neutrophil Count 3.68 10^3/uL (1.2-6.7); Basophils % 0.6; Eosinophils % 1.9; HCT 47.1 % (40.0-50.0); HGB 15.4 g/dL (13.5-17.5); Immature Grans % 0.5; MCH 28.5 pg (27.0-33.0); MCHC 32.7 % (32.0-36.0); MCV 87 fL (80-95); MPV 8.6 fL (8.0-11.0); Monocytes % 9.3; Neutrophils % 57.7; Platelet Count 201 10^3/uL (130-400); RBC 5.41 10^6/uL (4.36-5.78); RDW 13.7 % (11.8-14.1); RDW-SD 43.7 fL; WBC 6.37 10^3/uL (4.4-10.8)
[2023-06-11 13:10] LABS: ALT 30 U/L (16-63); AST 23 U/L (15-37); Albumin 3.7 g/dL (3.4-5.0); Alkaline Phosphatase 64 U/L (46-116); Anion Gap 8.3 mmol/L (3-11); BUN 10 mg/dL (7-18); Bilirubin, Total 0.6 mg/dL (0.2-1.0); CO2 23.7 mmol/L (21.0-32.0); CREATININE 0.9 mg/dL (0.70-1.30); Calcium 8.9 mg/dL (8.5-10.1); Chloride 105 mmol/L (98-107); Estimated GFR 89.07 (mL/min/1.73m2); Glucose 107 mg/dL (74-106); LDH 131 U/L (85-227); Potassium 4.3 mmol/L (3.5-5.1); Sodium 137 mmol/L (136-145); Total Protein 6.7 g/dL (6.4-8.2)
== END 2023-06-11 12:32 | disposition home or self-care (01) ==
PROVIDERS: PCP Internal Medicine; Visit Provider Nurse Practitioner Adult Health
DX: C83.38 Diffuse large B-cell lymphoma, lymph nodes of multiple sites (principal)
CPT/HCPCS: 36415; 80053; 83615; 85025

== ENCOUNTER → 2023-06-19 14:39 | Outpatient (BNVA) | payer MEDICARE, OTHER, SELFPAY | PROVIDERS: PCP Internal Medicine; Referring Provider Internal Medicine; Visit Provider Student in an Organized Health Care Education/Training Program | DX: J84.9 Interstitial pulmonary disease, unspecified (principal); T50.905A Adverse effect of unspecified drugs, medicaments and biological substances, initial encounter; C85.90 Non-Hodgkin lymphoma, unspecified, unspecified site | CPT/HCPCS: 99214 ==

== ENCOUNTER 2023-06-24 03:06 | Outpatient (CLI) | payer MEDICARE, OTHER, SELFPAY ==
[2023-06-24] MEDS: Levalbuterol HFA 15 GM INH 4 PUFF IH ×2 (14:21→14:40)
[2023-06-24] MEDS: Inhaler, Assist Device 1 EACH MC ×2 (14:21→14:41)
--- NOTE | 2023-06-24 15:21 | W.PFT ---
Date of service: 06/24/23 Time of Service: 12:57 Pulmonary Function Test Result Indications: ILD Interpretation Spirometry: No airflow limitation. No bronchodilator response. Lung Volumes: Normal lung volumes. Diffusion Capacity: Normal diffusion. Airway Pressure: Normal airways resistance Impression Normal pulmonary function testing. Note: As compared to 11/15/21, his lung function has improved. Clinical Correlation therefore is recommended.
== END 2023-06-24 03:07 | disposition home or self-care (01) ==
LOC: RT 03:06
PROVIDERS: PCP Internal Medicine; Visit Provider Student in an Organized Health Care Education/Training Program
DX: J84.9 Interstitial pulmonary disease, unspecified (principal)
CPT/HCPCS: 94060; 94726; 94729

== ENCOUNTER 2023-09-30 15:18 | Outpatient (CLI) | payer MEDICARE, OTHER, SELFPAY ==
[2023-09-30 14:57] LABS: Abs Immature Grans 0.03 10^3/uL (0.0-0.06); Absolute Basophil Count 0.04 10^3/uL (0.0-0.2); Absolute Eosinophil Count 0.13 10^3/uL (0.0-0.7); Absolute Lymphocyte Count 1.97 10^3/uL (1.2-3.4); Absolute Monocyte Count 0.65 10^3/uL (0.1-0.8); Basophils % 0.5; Eosinophils % 1.6; HCT 50.1 % (40.0-50.0); HGB 16.7 g/dL (13.5-17.5); Immature Grans % 0.4; Lymphocytes % 24.9; MCH 30.5 pg (27.0-33.0); MCHC 33.3 % (32.0-36.0); MCV 92 fL (80-95); Monocytes % 8.2; Neutrophils % 64.4; Platelet Count 203 10^3/uL (130-400); RBC 5.47 10^6/uL (4.36-5.78); RDW 13.6 % (11.8-14.1); RDW-SD 46.2 fL; WBC 7.92 10^3/uL (4.4-10.8)
[2023-09-30 15:41] LABS: ALT 33 U/L (16-63); AST 25 U/L (15-37); Albumin 3.9 g/dL (3.4-5.0); Alkaline Phosphatase 60 U/L (46-116); Anion Gap 7.1 mmol/L (3-11); BUN 20 mg/dL (7-18); Bilirubin, Total 0.7 mg/dL (0.2-1.0); CO2 27.9 mmol/L (21.0-32.0); CREATININE 0.9 mg/dL (0.70-1.30); Calcium 9.3 mg/dL (8.5-10.1); Chloride 102 mmol/L (98-107); Estimated GFR 89.07 (mL/min/1.73m2); Glucose 103 mg/dL (74-106); LDH 156 U/L (85-227); Potassium 4.5 mmol/L (3.5-5.1); Sodium 137 mmol/L (136-145); Total Protein 6.9 g/dL (6.4-8.2)
== END 2023-09-30 15:19 | disposition home or self-care (01) ==
LOC: LBO 15:19
PROVIDERS: PCP Internal Medicine; Visit Provider Nurse Practitioner Adult Health
DX: C83.38 Diffuse large B-cell lymphoma, lymph nodes of multiple sites (principal)
CPT/HCPCS: 36415; 80053; 83615; 85025

== ENCOUNTER → 2023-12-16 13:21 | Outpatient (BNVA) | payer MEDICARE, OTHER, SELFPAY | PROVIDERS: PCP Internal Medicine; Referring Provider Internal Medicine; Visit Provider Physician Assistant Surgical | DX: T50.905A Adverse effect of unspecified drugs, medicaments and biological substances, initial encounter; J84.9 Interstitial pulmonary disease, unspecified | CPT/HCPCS: 99214 ==

== ENCOUNTER 2024-01-28 09:25 | Outpatient (CLI) | payer MEDICARE, OTHER, SELFPAY ==
[2024-01-28 13:04] LABS: Abs Immature Grans 0.03 10^3/uL (0.0-0.06); Absolute Basophil Count 0.04 10^3/uL (0.0-0.2); Absolute Eosinophil Count 0.14 10^3/uL (0.0-0.7); Absolute Lymphocyte Count 1.61 10^3/uL (1.2-3.4); Absolute Monocyte Count 0.54 10^3/uL (0.1-0.8); Absolute Neutrophil Count 4.49 10^3/uL (1.2-6.7); Basophils % 0.6 %; HCT 47.6 % (40.0-50.0); Immature Grans % 0.4 %; Lymphocytes % 23.5 %; MCH 31.4 pg (27.0-33.0); MCHC 33.6 % (32.0-36.0); MCV 93 fL (80-95); MPV 8.7 fL (8.0-11.0); Monocytes % 7.9 %; Neutrophils % 65.6 %; Platelet Count 185 10^3/uL (130-400); RDW 13.2 % (11.8-14.1); RDW-SD 44.8 fL; WBC 6.85 10^3/uL (4.4-10.8)
[2024-01-28 13:50] LABS: ALT 32 U/L (16-63); AST 17 U/L (15-37); Albumin 3.7 g/dL (3.4-5.0); Alkaline Phosphatase 64 U/L (46-116); Anion Gap 8.8 mmol/L (3-11); BUN 20 mg/dL (7-18); Bilirubin, Total 0.3 mg/dL (0.2-1.0); CO2 27.2 mmol/L (21.0-32.0); CREATININE 1.1 mg/dL (0.70-1.30); Calcium 9.2 mg/dL (8.5-10.1); Chloride 105 mmol/L (98-107); Estimated GFR 70.01 (mL/min/1.73m2); Glucose 110 mg/dL (74-106); LDH 118 U/L (85-227); Potassium 4.5 mmol/L (3.5-5.1); Sodium 141 mmol/L (136-145); Total Protein 6.7 g/dL (6.4-8.2)
== END 2024-01-28 09:26 | disposition home or self-care (01) ==
LOC: LBO 09:26
PROVIDERS: PCP Internal Medicine; Visit Provider Internal Medicine Hematology & Oncology
DX: C83.38 Diffuse large B-cell lymphoma, lymph nodes of multiple sites (principal)
CPT/HCPCS: 36415; 80053; 83615; 85025

== ENCOUNTER → 2024-06-16 12:30 | Outpatient (BNVA) | payer MEDICARE, OTHER, SELFPAY | PROVIDERS: PCP Internal Medicine; Referring Provider Internal Medicine; Visit Provider Physician Assistant Surgical | DX: J84.9 Interstitial pulmonary disease, unspecified (principal) | CPT/HCPCS: 99214 ==

== ENCOUNTER 2024-06-30 00:41 | Outpatient (CLI) | payer MEDICARE, OTHER, SELFPAY ==
[2024-06-30] MEDS: Barium Sulfate 2% W/V-Creamy Vanilla Smoothie 450 ML BTL PO ×2 (10:39→10:40)
[2024-06-30 11:15] LABS: Abs Immature Grans 0.03 10^3/uL (0.0-0.06); Absolute Basophil Count 0.03 10^3/uL (0.0-0.2); Absolute Eosinophil Count 0.13 10^3/uL (0.0-0.7); Absolute Lymphocyte Count 1.59 10^3/uL (1.2-3.4); Absolute Monocyte Count 0.42 10^3/uL (0.1-0.8); Absolute Neutrophil Count 3.36 10^3/uL (1.2-6.7); Basophils % 0.5 %; Eosinophils % 2.3 %; HCT 50.5 % (40.0-50.0); HGB 16.9 g/dL (13.5-17.5); Immature Grans % 0.5 %; Lymphocytes % 28.6 %; MCHC 33.5 % (32.0-36.0); MCV 93 fL (80-95); MPV 8.8 fL (8.0-11.0); Monocytes % 7.6 %; Neutrophils % 60.5 %; Platelet Count 185 10^3/uL (130-400); RBC 5.46 10^6/uL (4.36-5.78); WBC 5.56 10^3/uL (4.4-10.8)
[2024-06-30 11:32] LABS: ALT 39 U/L (16-63); AST 27 U/L (15-37); Albumin 3.9 g/dL (3.4-5.0); Alkaline Phosphatase 68 U/L (46-116); Anion Gap 7.7 mmol/L (3-11); BUN 20 mg/dL (7-18); Bilirubin, Total 0.64 mg/dL (0.2-1.0); CO2 26.3 mmol/L (21.0-32.0); CREATININE 0.9 mg/dL (0.70-1.30); Calcium 9.4 mg/dL (8.5-10.1); Chloride 107 mmol/L (98-107); Estimated GFR 88.51 (mL/min/1.73m2); Glucose 109 mg/dL (74-106); LDH 143 U/L (85-227); Potassium 4.2 mmol/L (3.5-5.1); Sodium 141 mmol/L (136-145)
[2024-06-30 11:42] LABS: TSH (W/Ref FT4) 2.12 uIU/mL (0.36-3.74)
--- NOTE | 2024-06-30 13:37 | DI.CT_ITS ---
Exam(s) CT NECK CHEST ABD PEL W EXAM: CT NECK CHEST ABD PEL W CLINICAL HISTORY: H/O B CELL LYMPHOMA,COMPARE TO 06/2023,FINAL SURVEILLANCE SCAN TECHNIQUE: Imaging Protocol: Axial computed tomography images with coronal and sagittal reformatted images were created and reviewed. Computer aided detection (CAD) was utilized. CONTRAST MATERIAL: Intravenous: Omnipaque 350 Contrast volume:100 mL Oral: yes / COMPARISON: CT,PT NM PET CT STANDARD SKULL BASE TO MID-THIGH from 03/11/[address] CHEST/ABD/PEL W from 06/02/2023 FINDINGS: Neck: Parotids/submandibular/thyroid gland: Normal. Lymphadenopathy: No abnormally enlarged lymph nodes. Carotids/Jugular: Within normal limits. Soft tissues: The floor the mouth is unremarkable. The epiglottis and vocal cords are within normal limits. Bones: No fracture. Stable cystic area in the C5 vertebral body. Degenerative changes throughout. No suspicious lesions. Chest: Tracheobronchial tree: Patent where visualized. Mediastinum and Kayley: No dominant adenopathy or fluid collection. Small hiatal hernia. Pulmonary parenchyma: No consolidation or dominant measurable mass. No suspicious pulmonary nodules. Pleura: No effusion or pneumothorax. Heart/Aorta: Thora ascending aorta measures 3.8 cm. Mild atherosclerotic changes. Descending aorta measures 2.4 cm.. The heart is not dilated. No coronary artery calcifications are seen. Pulmonary arteries: No evidence of emboli. Bones: No fracture. No suspicious lesions. Soft tissues: Mild bilateral gynecomastia. ABDOMEN: Liver: Normal density. Multiple liver cysts which are stable. No suspicious mass. Gallbladder and biliary tract: No radiodense calculus or dilation. Pancreas: Normal density, no abnormal calcifications or inflammatory process. Spleen: Normal. Kidneys: Normal size, contour and axis. No radiodense stones or obstructive uropathy. No suspicious m asses seen. Adrenal glands: No masses seen. Abdominal Aorta: Abdominal portion non-dilated. PELVIS: Bladder: Symmetric distention, no gross wall thickening. Bowel: No obstruction or bowel wall thickening. Prominent sigmoid diverticulosis. No evidence of d iverticulitis. Mild diverticulosis in the descending colon. Peritoneal cavity: No ascites, collection or mesenteric inflammatory response. Reproductive: Unremarkable. Bones: Within degenerative changes in the spine. No lytic or blastic lesions. No compression fractu res. IMPRESSION: No evidence of adenopathy in the neck, Chest, Abdomen or pelvis. RADIATION DOSE DELIVERED: 751.26mGy.cm Total DLP DATA REPOSITORY: All CT scans at this facility are submitted to the National Radiology Data Registry (NRDR) Dose Index Registry (DIR) with the [employer] (ACR). RADIATION OPTIMIZATION: All CT scans at this facility use at least one of these dose optimization te chniques: automated exposure control; mA and/or kV adjustment per patient size (includes targeted exa ms where dose is matched to clinical indication); or iterative reconstruction.
[2024-06-30] MEDS: Normal Saline - Diluent 50 ML VIAL IJ (13:38)
[2024-06-30] MEDS: Omnipaque 350 MG/ML 100 ML BTL IJ (13:39)
== END 2024-06-30 01:01 ==
LOC: DI 00:41
PROVIDERS: Nurse Practitioner Adult Health; PCP Internal Medicine; Visit Provider Internal Medicine Hematology & Oncology
DX: C83.38 Diffuse large B-cell lymphoma, lymph nodes of multiple sites (principal); R53.83 Other fatigue
CPT/HCPCS: 70491; 74177; 80053; 71260; 83615; 84443; 85025; J3490

== ENCOUNTER 2024-07-05 14:38 | Outpatient (CLI) | payer MEDICARE, OTHER, SELFPAY ==
[2024-07-05 14:10] LABS: Abs Immature Grans 0.05 10^3/uL (0.0-0.06); Absolute Basophil Count 0.03 10^3/uL (0.0-0.2); Absolute Eosinophil Count 0.11 10^3/uL (0.0-0.7); Absolute Lymphocyte Count 1.67 10^3/uL (1.2-3.4); Absolute Monocyte Count 0.58 10^3/uL (0.1-0.8); Absolute Neutrophil Count 5.55 10^3/uL (1.2-6.7); Basophils % 0.4 %; Eosinophils % 1.4 %; HCT 49.4 % (40.0-50.0); HGB 16.6 g/dL (13.5-17.5); Immature Grans % 0.6 %; Lymphocytes % 20.9 %; MCH 31.1 pg (27.0-33.0); MCHC 33.6 % (32.0-36.0); MCV 93 fL (80-95); MPV 9.1 fL (8.0-11.0); Monocytes % 7.3 %; Neutrophils % 69.4 %; Platelet Count 191 10^3/uL (130-400); RBC 5.34 10^6/uL (4.36-5.78); RDW 12.9 % (11.8-14.1); RDW-SD 43.9 fL; WBC 7.99 10^3/uL (4.4-10.8)
[2024-07-05 14:26] LABS: ALT 41 U/L (16-63); AST 31 U/L (15-37); Albumin 3.8 g/dL (3.4-5.0); Alkaline Phosphatase 67 U/L (46-116); Anion Gap 7.2 mmol/L (3-11); BUN 20 mg/dL (7-18); Bilirubin, Total 0.74 mg/dL (0.2-1.0); CO2 25.8 mmol/L (21.0-32.0); CREATININE 0.9 mg/dL (0.70-1.30); Calcium 9.2 mg/dL (8.5-10.1); Chloride 107 mmol/L (98-107); Estimated GFR 88.51 (mL/min/1.73m2); Glucose 99 mg/dL (74-106); LDH 170 U/L (85-227); Potassium 4.6 mmol/L (3.5-5.1); Sodium 140 mmol/L (136-145); Total Protein 6.6 g/dL (6.4-8.2)
== END 2024-07-05 14:39 | disposition home or self-care (01) ==
LOC: LBO 14:38
PROVIDERS: PCP Internal Medicine; Visit Provider Nurse Practitioner Adult Health
DX: C83.38 Diffuse large B-cell lymphoma, lymph nodes of multiple sites (principal)
CPT/HCPCS: 36415; 80053; 83615; 85025

== ENCOUNTER 2024-08-17 03:20 | Outpatient (CLI) | payer MEDICARE, OTHER, SELFPAY ==
[2024-08-17] MEDS: Levalbuterol HFA 15 GM INH 4 PUFF IH (15:04)
[2024-08-17] MEDS: Inhaler, Assist Device 1 EACH MC (15:04)
--- NOTE | 2024-08-20 15:22 | W.PFT ---
Date of service: 08/17/24 Time of Service: 13:09 Pulmonary Function Test Result Indications: ILD Interpretation Spirometry: There is no airflow limitation. No bronchodilator response. Lung Volumes: Normal lung volumes Diffusion Capacity: Normal diffusion Airway Pressure: Normal airways resistance Impression Normal pulmonary function testing Clinical Correlation therefore is recommended.
== END 2024-08-17 03:21 | disposition home or self-care (01) ==
PROVIDERS: PCP Internal Medicine; Visit Provider Student in an Organized Health Care Education/Training Program
DX: J84.9 Interstitial pulmonary disease, unspecified (principal)
CPT/HCPCS: 94060; 94726; 94729

== ENCOUNTER 2024-10-05 14:28 | Outpatient (CLI) | payer MEDICARE, OTHER, SELFPAY ==
[2024-10-05 13:47] LABS: ALT 41 U/L (16-63); AST 31 U/L (15-37); Albumin 3.9 g/dL (3.4-5.0); Alkaline Phosphatase 75 U/L (46-116); Anion Gap 7.4 mmol/L (3-11); BUN 19 mg/dL (7-18); Bilirubin, Total 0.69 mg/dL (0.2-1.0); CO2 28.6 mmol/L (21.0-32.0); CREATININE 1.1 mg/dL (0.70-1.30); Calculated LDL 43 mg/dL (<100); Chloride 102 mmol/L (98-107); Cholesterol 126 mg/dL (<200); Estimated GFR 69.57 (mL/min/1.73m2); Glucose 88 mg/dL (74-106); HDL Cholesterol 49 mg/dL (40-60); Potassium 4.1 mmol/L (3.5-5.1); Sodium 138 mmol/L (136-145); Total Protein 6.9 g/dL (6.4-8.2); Triglyceride 172 mg/dL (<150)
[2024-10-05 13:52] LABS: Hemoglobin A1C 5.5 % (<5.7)
[2024-10-05 22:40] LABS: PSA, Screening 3.1 ng/mL (<=6.5)
== END 2024-10-05 14:29 | disposition home or self-care (01) ==
LOC: LBO 14:33
PROVIDERS: PCP Internal Medicine; Visit Provider Internal Medicine
DX: E78.5 Hyperlipidemia, unspecified (principal); R73.9 Hyperglycemia, unspecified; Z12.5 Encounter for screening for malignant neoplasm of prostate
CPT/HCPCS: 36415; 80053; 80061; 84153; 83036

== ENCOUNTER 2024-10-30 15:24 | Emergency (ER) | payer MEDICARE, OTHER, SELFPAY ==
[2024-10-30 15:30] VITALS: BP 156/84; PULSE 84; RESP 14; TEMP 36.4; O2SAT 96
--- NOTE | 2024-10-30 15:45 | DI.RAD_ITS ---
Exam(s) XR FOOT RT COMPLETE EXAM: XR FOOT RT COMPLETE CLINICAL HISTORY: R foot pain. TECHNIQUE: 2D digital imaging was performed. Three views. COMPARISON: No exams were available for comparison FINDINGS: BONES: No acute fracture is present. No bony destructive lesion is seen. JOINTS: No dislocation present. Mild degenerative changes at the 1st MTP joint as well as hallux danita javier. SOFT TISSUE: Mild vascular calcifications. IMPRESSION: No acute abnormality. DATA REPOSITORY: RADIATION DOSE DELIVERED:
--- NOTE | 2024-10-30 15:47 | ED.GENADUL_ITS ---
Discharge Plan Disposition Patient Disposition: Home Condition: Stable Discharge Details Clinical Impression: Sprain of right foot Primary Care Provider: Hannah Silvestre ED Provider: Marcial Lindo Home Meds and New Rx's Prescriptions: No Action No Known Home Meds Discharge Instructions Instructions: Foot Sprain ED Additional Instructions: You were seen in the emergency department for the sprain of your right foot, there is no fracture on x-ray, please continue rest, ice, compression and elevation, take 1000 mg of Tylenol 3 times per day, take 40 mg of ibuprofen every 6 hours. Please follow-up with orthopedics for failure to improve, return for any signs of infection or neurovascular compromise. Referrals: [facility] [Provider Group] Hannah Silvestre [Primary Care Provider] - Discharge Data Discharge Date/Time-TO BE ENTERED AT DEPARTURE: 10/30/24 17:33 HPI General Date/Time Provider Initiated Documentation: 10/30/24 15:47 . HPI Narrative: 74 year-old male presents to ED today by POV/ambulating with a chief complaint of right foot pain from possibly sprain putting his shoe on with onset 1 week ago. Quality described as pain at the base of the right fourth toe, no radiation to skin changes, redness, lesion, numbness or tingling, ankle pain. Severity is described as mild. Palliating factors include nothing specific attempted, has been elevating it but not significantly above the level of his heart. Provoking factors include nothing specific certain movements. Patient not anticoagulated. Related Data Home Medications ?Medication ?Instructions ?Recorded ?Confirmed Unknown [No Known Home Meds] 10/30/24 10/30/24 Allergies Allergy/AdvReac Type Severity Reaction Status Date / Time No Known Allergies Allergy Unverified 10/30/24 15:35 General Stated Complaint: Orthopedic WALLY: 4 Review of Systems All systems reviewed & are unremarkable except as noted in HPI and below Exam Narrative Exam Narrative: GENERAL APPEARANCE: Well-nourished, non-toxic, awake and alert, atraumatic, no acute distress. SKIN: Warm, pink, dry, intact, without rashes/lesions/ulcerations. HEAD: Normocephalic, atraumatic, normal hair distribution for gender/age. EYES: Normal conjunctiva, no exudates on lids/lashes. ENT: Nares patent, no circumoral cyanosis, no facial swelling NECK: Supple, trachea midline, painless cervical ROM. LUNGS/CHEST: Non-labored respirations, normal A/P diameter, symmetrical expansion, no chest wall deformity HEART (CV/PV): Regular rate, no peripheral edema, no JVD. ABDOMEN: Soft, non-distended, no guarding. MSK: Normal ROM, no swelling/deformity to bilateral UEs or LEs, moving all extremities without weakness, no cyanosis, spine midline without tenderness, normal curvature, mild tenderness at base of right fourth toe without crepitus, no ecchymosis, right dorsalis pedis pulse 2+, range of motion intact in all mendiola in the foot and ankle NEURO: Mental Status AAOx4 - alert to person, place, time, events No facial droop, no forehead involvement. Motor: No focal weakness - strength 5/5 in bilateral UEs and LEs, proximal and distal, symmetric. Sensory: sensation intact to light touch globally. Gait normal: patient ambulated without ataxia into ED room. PSYCH: euthymic, cooperative, pleasant, appropriate speech Course Vital Signs Vital signs: Vital Signs Temperature 36.4 C L 10/30/24 15:30 Pulse 84 10/30/24 15:30 Respiratory Rate 14 10/30/24 15:30 Blood Pressure 156/84 H 10/30/24 15:30 Pulse Oximetry 96 10/30/24 15:30 Temperature 36.4 C L 10/30/24 15:30 Temperature Source Oral 10/30/24 15:30 Pulse 84 10/30/24 15:30 Respiratory Rate 14 10/30/24 15:30 Blood Pressure 156/84 H 10/30/24 15:30 Blood Pressure Position Sitting 10/30/24 15:30 Pulse Oximetry 96 10/30/24 15:30 Oxygen Delivery Method Room Air 10/30/24 15:30 Oxygen Flow Rate 0 10/30/24 15:30 Medical Decision Making This dictation utilizes [id number] dictation software and may contain unedited grammatical errors. 74 year-old male presents to ED today by POV/ambulating with a chief complaint of right foot pain from possibly sprain putting his shoe on with onset 1 week ago. Quality described as pain at the base of the right fourth toe, no radiation to skin changes, redness, lesion, numbness or tingling, ankle pain. Severity is described as mild. Palliating factors include nothing specific attempted, has been elevating it but not significantly above the level of his heart. Provoking factors include nothing specific certain movements. Patients' medical history: Noncontributory. Family and social history: Noncontributory. Pertinent exam findings / vital signs include mild tenderness at base of right fourth toe without crepitus, no ecchymosis, right dorsalis pedis pulse 2+, range of motion intact in all mendiola in the foot and ankle. Differential / pathologies of concern include sprain/strain, unlikely fracture. Diagnostic studies of: -XR R Foot - no acute fracture seen. Interventions of: -Cornel wrap. ED Course/Assessment/Plan: 74-year-old male suffered a foot sprain 1 week ago while putting on his shoe, is no fracture on x-ray recommend RICE therapy and therapeutic dosing of Tylenol and ibuprofen, follow-up with orthopedics for persistent pain lasting longer than 2 weeks. Findings not consistent with fracture or neurovascular compromise. Disposition of sprain of right foot. Patient verbalized understanding of the plan and return to ED criteria and engaged in shared decision making. Medical Records Medical records reviewed: Yes I reviewed the patient's medical records. Imaging Data Radiologic Study: Attestation: I personally reviewed and interpreted this imaging study as follows: Imaging: X-Ray Radiologist's impression: EXAM: XR FOOT RT COMPLETE CLINICAL HISTORY: R foot pain. TECHNIQUE: 2D digital imaging was performed. Three views. COMPARISON: No exams were available for comparison FINDINGS: BONES: No acute fracture is present. No bony destructive lesion is seen. JOINTS: No dislocation present. Mild degenerative changes at the 1st MTP joint as well as hallux valgus. SOFT TISSUE: Mild vascular calcifications. IMPRESSION: No acute abnormality. Quality:SDOH Health Related Social Needs: No Data to Display PFSH All Active Problems (Updated 10/30/24 @ 17:11 by ART Christina) Sprain of right foot (Acute) ILD (interstitial lung disease) (Acute) Lung abscess (Acute) Drug-induced pneumonitis (Acute) NHL (non-Hodgkin's lymphoma) (Chronic) Hemorrhagic pericardial effusion (Acute) CHF (congestive heart failure) (Chronic) Ascites (Acute) Medical History (Updated 10/30/24 @ 17:11 by ART Christina) Lymphoma Surgical History (Updated 12/12/22 @ 17:48 by Edie Pollack DO) History of tonsillectomy Social History Smoking/Tobacco Use Status: Former Tobacco Use Smoking risk assessment performed?: Yes Alcohol Intake: current Alcohol Intake frequency: holidays/special occasions only Alcohol type: beer, wine and hard liquor Drug use: Never Substance use type: does not use Do you feel safe at home: Yes Do you feel safe in your relationship?: Yes
[2024-10-30 17:09] VITALS: BP 174/69; PULSE 78; O2SAT 100
== END 2024-10-30 17:33 | disposition home or self-care (01) ==
PROVIDERS: Emergency Provider Physician Assistant; PCP Internal Medicine
DX: S93.601A Unspecified sprain of right foot, initial encounter (principal); X58.XXXA Exposure to other specified factors, initial encounter; Z87.891 Personal history of nicotine dependence
CPT/HCPCS: 99283; 73630

== ENCOUNTER 2024-11-12 14:03 | Emergency (ER) | payer MEDICARE, OTHER, SELFPAY ==
[2024-11-12 14:17] VITALS: BP 136/80; PULSE 77; RESP 20; TEMP 36.3; O2SAT 96
--- NOTE | 2024-11-12 14:47 | ED.GENADUL_ITS ---
Discharge Plan Disposition Patient Disposition: Home Condition: Good Discharge Details Clinical Impression: Foot pain, right Primary Care Provider: Hannah Silvestre ED Provider: Nkechi Motley Home Meds and New Rx's Prescriptions: No Action atorvastatin 10 mg tablet 10 mg PO DAILY Patient Comments: TAKE ONE TABLET BY MOUTH EVERY DAY Discharge Instructions Instructions: Managing acute pain at home Additional Instructions: Continue to take ibuprofen over the counter; follow the directions on the bottle. Call your primary care doctor today to schedule an appointment to be seen to followup on your visit here. Keep your physical therapy appointment next week. Avoid caffeine if you find it is worsening your symptoms. Return to the emergency department for new or worsening symptoms including numbness, inability to walk, or if you have any other concerns. Referrals: Hannah Silvestre [Primary Care Provider] - [facility] General Date/Time Provider Initiated Documentation: 11/12/24 14:06 . Limitations to Documentation: no limitations . Information obtained by: patient and old records reviewed (Ed visit note 10/30/24, foot XR 10/30/24 IMPRESSION: No acute abnormality. ) . HPI Narrative: 74yo M presenting with right foot pain. Symptoms started two weeks ago after slip and fall on ice, twisted his foot at that time. Since then has had pain particularly when putting on his shoes or socks. Seen in this ED on 10/30 for this with negative XR at that time. Pain is burning and located at the base of his 4th digit as well as across all the MTP of his right foot. Has not improved since it started, but is not significantly worse. No numbness or tingling. Able to walk. Has felt occasional popping sensations when putting on his socks similar to cracking knuckles. Taking advil at home for pain and elevating foot; has not been taking his home gabapentin due to side effects. He is otherwise in his usual state of health. Related Data Home Medications ?Medication ?Instructions ?Recorded ?Confirmed atorvastatin 10 mg tablet 10 mg PO DAILY 11/12/24 11/12/24 Allergies Allergy/AdvReac Type Severity Reaction Status Date / Time No Known Allergies Allergy Verified 11/12/24 14:37 General Stated Complaint: Recheck WALLY: 5 Review of Systems Narrative: see HPI Exam Narrative Exam Narrative: General: Alert, well appearing, well nourished, in no acute distress. Head: Normocephalic, atraumatic Neck: Trachea midline, ?Neck supple. Cardiac: ?No cyanosis. Resp: No respiratory distress. Speaking in full sentences. Abd: ?Non-distended Extremities: ?No deformities.? No peripheral edema. Able to bear weight. Steady gait. Right foot: No bony tenderness at foot or ankle. No pain with passive flexion/extension at all digits. Sensation to light touch intact throughout foot and ankle and symmetric compared to left. Good DP and PT pulses. Normal color and temperature throughout right foot. Neurologic: GCS 15. ? Moves all extremities freely against gravity Course Vital Signs Vital signs: Vital Signs Temperature 36.3 C L 11/12/24 14:17 Pulse 77 11/12/24 14:17 Respiratory Rate 20 11/12/24 14:17 Blood Pressure 136/80 11/12/24 14:17 Pulse Oximetry 96 11/12/24 14:17 Temperature 36.3 C L 11/12/24 14:17 Temperature Source Temporal Artery Scan 11/12/24 14:17 Pulse 77 11/12/24 14:17 Respiratory Rate 20 11/12/24 14:17 Blood Pressure 136/80 11/12/24 14:17 Blood Pressure Position Sitting 11/12/24 14:17 Pulse Oximetry 96 11/12/24 14:17 Oxygen Delivery Method Room Air 11/12/24 14:17 Oxygen Flow Rate 0 11/12/24 14:17 Pain Level 7 11/12/24 14:32 Medical Decision Making 74yo M presenting with right foot pain. Symptoms started two weeks ago after slip and fall on ice, twisted his foot at that time; since then has had pain particularly when putting on his shoes or socks. Seen in this ED on 10/30 for this with negative XR at that time. Vital signs reassuring on arrival. Normal physical exam, no neurovascular compromise to right foot, no swelling or bony tenderness. Independence rules negative. No indication for emergent repeat XR or other imaging. I am not concerned for clinically significant fracture, gout, septic arthritis, acute ischemia, or other emergent pathology. He has not yet seen his PCP but does have a referral for physical therapy with an appointment for next week. I encouraged him to keep this appointment and to schedule an appointment with his PCP, otherwise continue symptomatically treating at home with ibuprofen, rest, elevation. Discharged home; discharge instructions and return precautions were reviewed with patient who verbalized understanding. All questions were answered and he is in full agreement with the plan. Ambulated out of department easily with steady normal gait. Quality:SDOH Health Related Social Needs: No Data to Display PFSH All Active Problems (Updated 11/12/24 @ 14:49 by Nkechi Motley MD) Foot pain, right (Acute) Sprain of right foot (Acute) ILD (interstitial lung disease) (Acute) Lung abscess (Acute) Drug-induced pneumonitis (Acute) NHL (non-Hodgkin's lymphoma) (Chronic) Hemorrhagic pericardial effusion (Acute) CHF (congestive heart failure) (Chronic) Ascites (Acute) Medical History (Updated 11/12/24 @ 14:49 by Nkechi Motley MD) Lymphoma Surgical History (Updated 12/12/22 @ 17:48 by Edie Pollack DO) History of tonsillectomy Social History Smoking/Tobacco Use Status: Former Tobacco Use Smoking risk assessment performed?: Yes Alcohol Intake: current Alcohol Intake frequency: holidays/special occasions only Alcohol type: beer, wine and hard liquor Drug use: Never Substance use type: does not use Do you feel safe at home: Yes Do you feel safe in your relationship?: Yes
== END 2024-11-12 14:55 | disposition home or self-care (01) ==
PROVIDERS: Emergency Provider Student in an Organized Health Care Education/Training Program; PCP Internal Medicine
DX: M79.671 Pain in right foot (principal)
CPT/HCPCS: 99281; 99282

== ENCOUNTER 2024-12-02 15:43 | Outpatient (CLI) | payer MEDICARE, OTHER, SELFPAY ==
[2024-12-02 15:01] LABS: Abs Immature Grans 0.03 10^3/uL (0.0-0.06); Absolute Basophil Count 0.04 10^3/uL (0.0-0.2); Absolute Eosinophil Count 0.16 10^3/uL (0.0-0.7); Absolute Lymphocyte Count 1.83 10^3/uL (1.2-3.4); Absolute Neutrophil Count 5.46 10^3/uL (1.2-6.7); Basophils % 0.5 %; HGB 16.1 g/dL (13.5-17.5); Immature Grans % 0.4 %; Lymphocytes % 22.5 %; MCH 31.8 pg (27.0-33.0); MCHC 32.9 % (32.0-36.0); MCV 97 fL (80-95); MPV 8.9 fL (8.0-11.0); Monocytes % 7.4 %; Neutrophils % 67.2 %; Platelet Count 167 10^3/uL (130-400); RBC 5.06 10^6/uL (4.36-5.78); RDW 13.2 % (11.8-14.1); RDW-SD 47.1 fL; WBC 8.12 10^3/uL (4.4-10.8)
[2024-12-02 15:41] LABS: ALT 39 U/L (16-63); AST 30 U/L (15-37); Albumin 3.9 g/dL (3.4-5.0); Alkaline Phosphatase 60 U/L (46-116); Anion Gap 8.2 mmol/L (3-11); BUN 21 mg/dL (7-18); Bilirubin, Total 0.6 mg/dL (0.2-1.0); CO2 27.8 mmol/L (21.0-32.0); CREATININE 0.9 mg/dL (0.70-1.30); Calcium 9.7 mg/dL (8.5-10.1); Chloride 105 mmol/L (98-107); Estimated GFR 88.51 (mL/min/1.73m2); Glucose 97 mg/dL (74-106); LDH 150 U/L (85-227); Potassium 4.6 mmol/L (3.5-5.1); Sodium 141 mmol/L (136-145); Total Protein 7.1 g/dL (6.4-8.2)
== END 2024-12-02 15:44 | disposition home or self-care (01) ==
LOC: LBO 15:43
PROVIDERS: PCP Internal Medicine; Visit Provider Nurse Practitioner Adult Health
DX: C83.38 Diffuse large B-cell lymphoma, lymph nodes of multiple sites (principal)
CPT/HCPCS: 36415; 80053; 83615; 85025

== ENCOUNTER → 2024-12-15 14:25 | Outpatient (BNVA) | payer MEDICARE, OTHER, SELFPAY | PROVIDERS: PCP Internal Medicine; Referring Provider Internal Medicine; Visit Provider Physician Assistant Surgical | DX: J84.9 Interstitial pulmonary disease, unspecified (principal); T50.905D Adverse effect of unspecified drugs, medicaments and biological substances, subsequent encounter; C85.90 Non-Hodgkin lymphoma, unspecified, unspecified site | CPT/HCPCS: 99214 ==

== ENCOUNTER 2025-01-04 14:46 | Outpatient (CLI) | payer MEDICARE, OTHER, SELFPAY ==
[2025-01-04 14:50] LABS: Abs Immature Grans 0.06 10^3/uL (0.0-0.06); Absolute Basophil Count 0.05 10^3/uL (0.0-0.2); Absolute Eosinophil Count 0.21 10^3/uL (0.0-0.7); Absolute Lymphocyte Count 2.49 10^3/uL (1.2-3.4); Absolute Monocyte Count 0.81 10^3/uL (0.1-0.8); Absolute Neutrophil Count 6.99 10^3/uL (1.2-6.7); Basophils % 0.5 %; HCT 48.5 % (40.0-50.0); HGB 16.2 g/dL (13.5-17.5); Immature Grans % 0.6 %; Lymphocytes % 23.5 %; MCH 31.2 pg (27.0-33.0); MCHC 33.4 % (32.0-36.0); MCV 93 fL (80-95); MPV 8.9 fL (8.0-11.0); Monocytes % 7.6 %; Neutrophils % 65.8 %; Platelet Count 184 10^3/uL (130-400); RDW-SD 44.5 fL; WBC 10.61 10^3/uL (4.4-10.8)
[2025-01-04 15:27] LABS: ALT 32 U/L (16-63); AST 25 U/L (15-37); Alkaline Phosphatase 72 U/L (46-116); Anion Gap 5.9 mmol/L (3-11); BUN 18 mg/dL (7-18); Bilirubin, Total 0.4 mg/dL (0.2-1.0); CO2 29.1 mmol/L (21.0-32.0); CREATININE 0.9 mg/dL (0.70-1.30); Calcium 9.7 mg/dL (8.5-10.1); Chloride 105 mmol/L (98-107); Estimated GFR 88.51 (mL/min/1.73m2); Glucose 102 mg/dL (74-106); LDH 149 U/L (85-227); Potassium 4.7 mmol/L (3.5-5.1); Sodium 140 mmol/L (136-145); Total Protein 7.2 g/dL (6.4-8.2)
== END 2025-01-04 14:47 | disposition home or self-care (01) ==
LOC: LBO 14:46
PROVIDERS: PCP Internal Medicine; Visit Provider Nurse Practitioner Adult Health
DX: C83.38 Diffuse large B-cell lymphoma, lymph nodes of multiple sites (principal)
CPT/HCPCS: 36415; 80053; 83615; 85025

== ENCOUNTER 2025-07-05 14:36 | Outpatient (CLI) | payer MEDICARE, OTHER, SELFPAY ==
[2025-07-05 14:55] LABS: Abs Immature Grans 0.03 10^3/uL (0.0-0.06); HCT 44.7 % (40.0-50.0); HGB 15.3 g/dL (13.5-17.5); Immature Grans % 0.3 %; MCH 32.1 pg (27.0-33.0); MCHC 34.2 % (32.0-36.0); MCV 94 fL (80-95); MPV 9.0 fL (8.0-11.0); Platelet Count 176 10^3/uL (130-400); RBC 4.76 10^6/uL (4.36-5.78); RDW 13.1 % (11.8-14.1); RDW-SD 44.9 fL; WBC 9.67 10^3/uL (4.4-10.8)
[2025-07-05 15:55] LABS: ALT 42 U/L (16-63); AST 27 U/L (15-37); Albumin 3.9 g/dL (3.4-5.0); Alkaline Phosphatase 66 U/L (46-116); Anion Gap 9.5 mmol/L (3-11); BUN 21 mg/dL (7-18); Bilirubin, Total 0.4 mg/dL (0.2-1.0); CO2 26.5 mmol/L (21.0-32.0); Calcium 9.3 mg/dL (8.5-10.1); Chloride 106 mmol/L (98-107); Glucose 109 mg/dL (74-106); LDH 160 U/L (85-227); Potassium 4.3 mmol/L (3.5-5.1); Sodium 142 mmol/L (136-145); Total Protein 7.0 g/dL (6.4-8.2)
== END 2025-07-05 14:37 | disposition home or self-care (01) ==
LOC: LBO 14:39
PROVIDERS: PCP Internal Medicine; Visit Provider Internal Medicine Hematology & Oncology
DX: C83.38 Diffuse large B-cell lymphoma, lymph nodes of multiple sites (principal)
CPT/HCPCS: 36415; 80053; 83615; 85025